=== PATIENT | male | born 1940 | race African-American/Black ===

== ENCOUNTER 2018-08-18 17:39 | Observation (INO) ==
--- NOTE | 2018-08-18 18:10 | ED ---
HPI General Chief complaint: Altered Mental Status Stated complaint: AMS Time Seen by Provider: 08/18/18 17:50 Source: RN notes reviewed Mode of arrival: EMS Limitations: other (dementia) History of Present Illness HPI narrative: Patient is a 78-year-old male with history of dementia, hypertension who presents to the emergency room from [facility] for neurological changes. As per fci, patient was acting like his normal self around 11 to 11:30 AM this morning when she went for lunch. When patient went for dinner around 5 PM tonight, staff reported that patient had left lower extremity weakness, patient son thought it was more of a right lower extremity weakness. There are concerns for possible neurological deficits given his shuffling gait. Patient was last seen normal around 11:30 AM today. Patient is pleasantly demented, he is alert to person and place, not time. Patient with no complaints at this time. Related Data Home Medications Medication Instructions Recorded Confirmed ferrous sulfate 325 mg PO TID 08/18/18 08/18/18 fluoxetine 20 mg PO DAILY 08/18/18 08/18/18 furosemide 20 mg PO DAILY 08/18/18 08/18/18 latanoprost 1 drp OPHTHALMIC (EYE) QPM 08/18/18 08/18/18 losartan 100 mg PO DAILY 08/18/18 08/18/18 spironolactone 25 mg PO BID 08/18/18 08/18/18 Allergies Allergy/AdvReac Type Severity Reaction Status Date / Time No Known Allergies Allergy Verified 08/18/18 18:02 Review of Systems ROS: all other systems reviewed are negative PMFSH History History Provided By: Patient Medical History Medical History Fluid retention (Acute) Hypertension (Acute) Social History Social History Substance History: No History of Abuse Smoking Status: Unknown if ever smoked How Often Do You Have a Drink Containing Alcohol: Never Recent Out of Country Travel within the Last 8 Weeks: No Exam Narrative Exam Narrative: GENERAL: NAD, pleasantly SKIN: Focused skin assessment warm/dry. HEAD: Atraumatic. Normocephalic. EYES: Pupils equal and round. No scleral icterus. No injection or drainage. ENT: No nasal bleeding or discharge. Mucous membranes pink and moist. NECK: Trachea midline. No JVD. CARDIOVASCULAR: Regular rate and rhythm. No murmur appreciated. RESPIRATORY: No accessory muscle use. Clear to auscultation. Breath sounds equal bilaterally. GASTROINTESTINAL: Abdomen soft, non-tender, nondistended. Hepatic and splenic margins not palpable. MUSCULOSKELETAL: No obvious deformities. No clubbing. No cyanosis. No edema. NEUROLOGICAL: Awake and alert. No obvious cranial nerve deficits. Motor grossly within normal limits. Normal speech. PSYCHIATRIC: Flat mood and affect, patient alert to person and place Course Consultations Consultation #1: Patient's care discussed with on-call [facility] physician Dr. Castillo regarding presentation for new onset weakness concerning for possible TIA, identified to have renal insufficiency chronicity is unknown and family members with lab work does not have baseline renal function for possible acute renal insufficiency/dehydration, mild hyperkalemia of 5.3 patient given fluid challenge cautiously due to history of CHF. Time: 21:27 Initial Documented Vital Signs Temperature 97.7 F 08/18/18 17:45 Pulse Rate 83 08/18/18 17:45 Respiratory Rate 12 08/18/18 17:45 Blood Pressure 124/58 L 08/18/18 17:45 Pulse Oximetry 97 08/18/18 17:45 Last Documented Vital Signs Temperature 97.7 F 08/18/18 17:45 Pulse Rate 68 08/18/18 20:00 Respiratory Rate 18 08/18/18 20:00 Blood Pressure 128/58 L 08/18/18 20:00 Pulse Oximetry 98 08/18/18 20:00 Sign Out Sign Out Data: Patient Sign Out occurred on 08/18/18 at 19:18. Patient's care was discussed, and care was transferred from Meera Hoffman to Eliane Concepcion MD. Sign Out Comment: Patient signed out at change of shift, patient pending her full workup including CT the head and lab work, ultimately, I do think that patient will be admitted to the hospital for observation Last updated by Meera Hoffman at 08/18/18 19:01 Post-Handoff Eval: Accepted in transfer of care from Dr. Hoffman Medical Decision Making [facility] Narrative Medical decision making narrative: During the course of the patients emergency department visit, the patients history, examination, and differential diagnosis were reviewed with the patient. The patient was placed on a location analyst with oximetry and frequent blood pressure monitoring. The patient had an IV access obtained and blood work sent for analysis. BS [id number] Patient's care discussed with on-call [facility] physician Dr. Castillo regarding presentation for new onset weakness concerning for possible TIA, identified to have renal insufficiency chronicity is unknown and family members with lab work does not have baseline renal function for possible acute renal insufficiency/ dehydration, mild hyperkalemia of 5.3 patient given fluid challenge cautiously due to history of CHF. Medical Screen Exam Complete: Yes Emergency Medical Condition: Yes Differential Diagnosis Differential Diagnosis: ICH, TIA, CVA, UTI, Electrolyte abnormality Medical Records Medical records reviewed: Yes I reviewed the patient's medical records. Lab Data Lab results reviewed: Yes I reviewed the patient's lab results. Result diagrams: 08/18/18 18:16 08/18/18 18:16 Lab Results 08/18/18 08/18/18 08/18/18 Range/Units 18:16 18:16 18:16 WBC 6.6 (4.0-11.0) th/mm3 RBC 3.02 L (4.50-5.90) mil/mm3 Hgb 11.4 L (13.0-17.0) gm/dL Hct 34.0 L (39.0-51.0) % MCV 112.4 H (80.0-100.0) fL MCH 37.7 H (27.0-34.0) pg MCHC 33.5 (32.0-36.0) % RDW 15.5 (11.6-17.2) % Plt Count 84 L (150-450) th/mm3 MPV 10.1 (7.0-11.0) fL Prelim Diff (Auto) Slide review pending Neut % (Auto) 64.7 (16.0-70.0) % Lymph % (Auto) 15.8 (9.0-44.0) % [place] % (Auto) 14.7 H (0.0-8.0) % Eos % (Auto) 4.6 H (0.0-4.0) % Baso % (Auto) 0.2 (0.0-2.0) % Neut # (Auto) 4.3 (1.8-7.7) th/mm3 Lymph # (Auto) 1.0 (1.0-4.8) th/mm3 [place] # (Auto) 1.0 H (0.0-0.9) th/mm3 Eos # (Auto) 0.3 (0.0-0.4) th/mm3 Baso # (Auto) 0.0 (0.0-0.2) th/mm3 WBC Differential . Diff Scan Auto diff confirmed Differential Comment . Platelet Estimate Low L (Normal) Platelet Morphology Normal (Normal) PT 13.2 H (9.8-11.6) sec INR 1.3 Ratio APTT 32.2 H (24.3-30.1) sec Sodium 139 (136-145) meq/L Potassium 5.3 H (3.5-5.1) meq/L Chloride 110 H (98-107) meq/L Carbon Dioxide 19.0 L (21.0-32.0) meq/L Anion Gap 10 (5-15) meq/L BUN 47 H (7-18) mg/dL Creatinine 2.74 H (0.60-1.30) mg/dL Estimated GFR 27 L (>89) mL/min POC Glucose (68-110) mg/dl Random Glucose 146 H (74-106) mg/dL Calcium 9.0 (8.5-10.1) mg/dL Total Creatine Kinase 126 (39-308) U/L CK-MB (CK-2) 1.4 (0.5-3.6) ng/mL Troponin I Less than 0.02 L (0.02-0.05) ng/mL Urine Color (Yellw/Straw) Urine Clarity (Clear) Urine pH (5.0-8.5) Ur Specific [place] (1.002-1.035) Urine Protein (Neg-Trace) mg/dL Urine Glucose (UA) (Negative) mg/dL Urine Ketones (Negative) mg/dL Urine Occult Blood (Negative) Urine Nitrate (Negative) Urine Bilirubin (Negative) Urine Urobilinogen (Less than 2) mg/dL Ur Leukocyte Esterase (Negative) Urine WBC (0-5) /hpf Hyaline Casts (0-3) /lpf Granular Casts (None) /lpf Urine Mucus (Occasional) /lpf Micro UA Comment Ur Microscopic Review Urine Culture Comments 08/18/18 08/18/18 Range/Units 18:20 20:18 WBC (4.0-11.0) th/mm3 RBC (4.50-5.90) mil/mm3 Hgb (13.0-17.0) gm/dL Hct (39.0-51.0) % MCV (80.0-100.0) fL MCH (27.0-34.0) pg MCHC (32.0-36.0) % RDW (11.6-17.2) % Plt Count (150-450) th/mm3 MPV (7.0-11.0) fL Prelim Diff (Auto) Neut % (Auto) (16.0-70.0) % Lymph % (Auto) (9.0-44.0) % [place] % (Auto) (0.0-8.0) % Eos % (Auto) (0.0-4.0) % Baso % (Auto) (0.0-2.0) % Neut # (Auto) (1.8-7.7) th/mm3 Lymph # (Auto) (1.0-4.8) th/mm3 [place] # (Auto) (0.0-0.9) th/mm3 Eos # (Auto) (0.0-0.4) th/mm3 Baso # (Auto) (0.0-0.2) th/mm3 WBC Differential Diff Scan Differential Comment Platelet Estimate (Normal) Platelet Morphology (Normal) PT (9.8-11.6) sec INR Ratio APTT (24.3-30.1) sec Sodium (136-145) meq/L Potassium (3.5-5.1) meq/L Chloride (98-107) meq/L Carbon Dioxide (21.0-32.0) meq/L Anion Gap (5-15) meq/L BUN (7-18) mg/dL Creatinine (0.60-1.30) mg/dL Estimated GFR (>89) mL/min POC Glucose 141 H (68-110) mg/dl Random Glucose (74-106) mg/dL Calcium (8.5-10.1) mg/dL Total Creatine Kinase (39-308) U/L CK-MB (CK-2) (0.5-3.6) ng/mL Troponin I (0.02-0.05) ng/mL Urine Color Yellow (Yellw/Straw) Urine Clarity Clear (Clear) Urine pH 5.0 (5.0-8.5) Ur Specific [place] 1.011 (1.002-1.035) Urine Protein Negative (Neg-Trace) mg/dL Urine Glucose (UA) Negative (Negative) mg/dL Urine Ketones Negative (Negative) mg/dL Urine Occult Blood Negative (Negative) Urine Nitrate Negative (Negative) Urine Bilirubin Negative (Negative) Urine Urobilinogen 2.0 H (Less than 2) mg/dL Ur Leukocyte Esterase Negative (Negative) Urine WBC 2 (0-5) /hpf Hyaline Casts 20 (0-3) /lpf Granular Casts 7 (None) /lpf Urine Mucus Few H (Occasional) /lpf Micro UA Comment Culture not ind Ur Microscopic Review Not Reportable Urine Culture Comments Culture not ind Imaging Data Radiologist's impression: Head CT 08/18/18 18:02 CONCLUSION: 1. Atrophy. . Chest X-Ray 08/18/18 20:23 CONCLUSION: Negative examination. Discharge Plan Discharge Disposition Patient Disposition: 30 Still Patient Discharge Condition Condition: Stable Discharge Details Diagnosis: TIA (transient ischemic attack), Acute renal insufficiency, Hyperkalemia Physicians Team ED Provider: Eliane Concepcion Primary Care Provider: Mike Bower V Rxs /Orders / Referrals /Forms Prescriptions: No Action latanoprost 0.005 % Drops 1 drp OPHTHALMIC (EYE) QPM RF: 0 spironolactone 25 mg Tablet 25 mg PO BID RF: 0 ferrous sulfate 325 mg (65 mg iron) Tablet 325 mg PO TID RF: 0 furosemide 20 mg Tablet 20 mg PO DAILY RF: 0 losartan 100 mg Tablet 100 mg PO DAILY RF: 0 fluoxetine 20 mg Capsule 20 mg PO DAILY RF: 0 Discharge Interventions Interventions: Vital Signs Last Done: 08/18/18 20:00 Status ED Status: With Doctor
[2018-08-18 18:52] LABS: Baso % (Auto) 0.2 % (0.0-2.0); Eos # (Auto) 0.3 th/mm3 (0.0-0.4); Eos % (Auto) 4.6 % (0.0-4.0); Hemoglobin 11.4 gm/dL (13.0-17.0); Lymph % (Auto) 15.8 % (9.0-44.0); Mean Corpuscular HGB Conc 33.5 % (32.0-36.0); Mean Corpuscular Hemoglobin 37.7 pg (27.0-34.0); Mean Corpuscular Volume 112.4 fL (80.0-100.0); Mean Platelet Volume 10.1 fL (7.0-11.0); Mono % (Auto) 14.7 % (0.0-8.0); Neut # (Auto) 4.3 th/mm3 (1.8-7.7); Neut % (Auto) 64.7 % (16.0-70.0); Platelet Count 84 th/mm3 (150-450); Red Blood Count 3.02 mil/mm3 (4.50-5.90); Red Cell Distribution Width 15.5 % (11.6-17.2); White Blood Count 6.6 th/mm3 (4.0-11.0)
[2018-08-18 18:55] LABS: Activated Partial Thrombo Time 32.2 sec (24.3-30.1); INR 1.3 Ratio; Prothrombin Time 13.2 sec (9.8-11.6)
[2018-08-18 19:13] LABS: Anion Gap 10 meq/L (5-15); Blood Urea Nitrogen 47 mg/dL (7-18); Chloride 110 meq/L (98-107); Creatine Kinase 126 U/L (39-308); Glomerular Filtration Rate 27 mL/min (>89); Glucose,Random 146 mg/dL (74-106); Sodium 139 meq/L (136-145)
[2018-08-18 19:17] LABS: Platelet Morphology Normal (Normal)
--- NOTE | 2018-08-18 19:30 | CT ---
EXAM DATE: 08/18/2018 6:08 PM EDT AGE/SEX: 78 years / Male INDICATIONS: Altered mental status. CLINICAL DATA: This is the patient's initial encounter. Patient reports that signs and symptoms have been present for 1 day and indicates a pain score of 0/10. MEDICAL/SURGICAL HISTORY: None. None. RADIATION DOSE: 41.90 CTDI (mGy) COMPARISON: No prior exams available for comparison. TECHNIQUE: CT of the head without contrast. Using automated exposure control and adjustment of the mA and/or kV according to patient size, radiation dose was kept as low as reasonably achievable to ob tain optimal diagnostic quality images. DICOM format image data is available electronically for revi ew and comparison. FINDINGS: There is mild atrophy. No signs of intracranial hemorrhage, acute infarct, or mass. No fractures. CONCLUSION: 1. Atrophy. . Electronically signed by: Fidencio Hidalgo MD 08/18/2018 7:29 PM EDT
[2018-08-18 19:31] LABS: Potassium 5.3 meq/L (3.5-5.1)
[2018-08-18 19:43] LABS: Creatine Kinase MB 1.4 ng/mL (0.5-3.6)
[2018-08-18 20:53] LABS: Bilirubin,Urine Negative (Negative); Clarity,Urine Clear (Clear); Color,Urine Yellow (Yellw/Straw); Glucose,Urine (UA) Negative (Negative); Hyaline Casts,Urine 20 /lpf (0-3); Leukocyte Esterase,Urine Negative (Negative); Mucus,Urine Few /lpf (Occasional); Nitrite,Urine Negative (Negative); Specific Gravity,Urine 1.011 (1.002-1.035)
[2018-08-18] MEDS ORDERED: Sodium Chlor 0.9% Inj 500 ML IV.SIG SCH (21:00)
--- NOTE | 2018-08-18 21:19 | XR ---
EXAM DATE: 08/18/2018 8:23 PM EDT AGE/SEX: 78 years / Male INDICATIONS: Hypertension and shortness of breath. CLINICAL DATA: This is the patient's initial encounter. Patient reports that signs and symptoms have been present for 2 days and indicates a pain score of 0/10. MEDICAL/SURGICAL HISTORY: None. None. COMPARISON: No prior exams available for comparison. FINDINGS: A single AP view of the chest demonstrates the lungs to be symmetrically aerated without evidence of mass, infiltrate or effusion. The cardiomediastinal contours are unremarkable. Osseous structures a re intact. CONCLUSION: Negative examination. Electronically signed by: Fidencio Hidalgo MD 08/18/2018 9:17 PM EDT
[2018-08-18] MEDS ORDERED: Dextrose 50% in Water 50 ML Vial IV.PUSH PRN (22:34)
[2018-08-18] MEDS ORDERED: Sodium Polystyrene Sulfonate/Sorbitol Liq 15 GM/60 ML UDC PO ONE (22:42)
--- NOTE | 2018-08-18 22:43 | P.HP ---
History of Present Illness Service: [facility] Primary Care Physician: Mike Bower MD History of Present Illness: 78-year-old male with past medical history significant for CHF, glaucoma and hypertension presents to the emergency department for evaluation of left lower extremity weakness. At approximately 4:30 PM this afternoon the patient's son noticed that his father was dragging his left leg behind him while walking with his walker. The patient did not have any confusion or slurred speech. He reports at this time he feels fine but has not tried to ambulate since his arrival in the emergency department. He denies any history of kidney disease. No chest pain or shortness of breath. No abdominal pain. No nausea/vomiting/ diarrhea. No fever/chills. Review of Systems All other systems reviewed negative except as stated in HPI PMFSH - History History Provided By: Patient - Medical History Medical History: Medical History (Last Updated 08/18/18 @ 22:38 by Meera Castillo MD) Congestive heart failure Glaucoma Hypertension - Surgical History Surgical History: Surgical History (Last Updated 08/18/18 @ 22:38 by Meera Castillo MD) History of appendectomy Status post repair of hydrocele - Family History Family History: Family History (Last Updated 08/18/18 @ 22:38 by Meera Castillo MD) Other Coronary artery disease Diabetes mellitus - Tobacco History Smoking Status: Unknown if ever smoked - Alcohol History How Often Do You Have a Drink Containing Alcohol: Never - Substance Use History Substance History: No History of Abuse - Travel History Recent Travel Out of the Country Within the Last 8 Weeks: No - Immunization History Tetanus Immunization: Unsure Medications and Allergies Active Medications: Active Medications Aspirin (Aspirin) 325 mg PO DAILY ERICH Dextrose (D50w Vial) 50 ml IV.PUSH UNSCH PRN PRN Reason: PER HYPOGLYCEMIA PROTOCOL Sodium Chloride (Ns Inj) 500 mls @ 0 mls/hr IV.SIG BOLUS ERICH Sodium Chloride (Ns Flush) 2 ml IV.FLUSH PRN PRN PRN Reason: FLUSH AFTER USING IV ACCESS Allergies Allergy/AdvReac Type Severity Reaction Status Date / Time No Known Allergies Allergy Verified 08/18/18 18:02 Home Medications Medication Instructions Recorded Confirmed Type ferrous sulfate 325 mg PO TID 08/18/18 08/18/18 History fluoxetine 20 mg PO DAILY 08/18/18 08/18/18 History furosemide 20 mg PO DAILY 08/18/18 08/18/18 History latanoprost 1 drp OPHTHALMIC (EYE) QPM 08/18/18 08/18/18 History losartan 100 mg PO DAILY 08/18/18 08/18/18 History spironolactone 25 mg PO BID 08/18/18 08/18/18 History Exam Vital signs: Vital Signs 08/18/18 17:45 08/18/18 18:07 08/18/18 19:01 Temperature 97.7 F Pulse Rate 83 69 Respiratory Rate 12 18 18 Blood Pressure 124/58 L 119/58 L Pulse Oximetry 97 100 99 08/18/18 20:00 08/18/18 21:00 08/18/18 22:00 Temperature Pulse Rate 68 70 73 Respiratory Rate 18 16 18 Blood Pressure 128/58 L 140/63 Pulse Oximetry 98 98 98 Intake & Output 08/18/18 08/18/18 08/19/18 06:59 18:59 06:59 Weight 82.554 kg Narrative: Gen.: No acute distress Head: Normocephalic. Atraumatic. EENT: Pupils equal round and reactive to light. Nose without drainage. Airway intact. Throat without injection. Cardiovascular: Regular rate and rhythm. No murmurs, rubs or gallops. Respiratory: Lungs clear to auscultation bilaterally. No wheezes or rhonchi. Abdomen: Soft, nontender, nondistended. No peritoneal signs. Musculoskeletal: No gross deformities. No edema. Skin: No obvious rashes or erythema. Neuro: Cranial nerves II through XII intact. Upper extremity strength including hand ice maker strength 5/5. Lower extremity strength 3/5 bilaterally. No facial droop or slurred speech. Results - Labs CBC & Chem 7: 08/18/18 18:16 08/18/18 18:16 Labs: Laboratory Results - last 24 hr 08/18/18 08/18/18 08/18/18 18:16 18:16 18:16 WBC 6.6 RBC 3.02 L Hgb 11.4 L Hct 34.0 L MCV 112.4 H MCH 37.7 H MCHC 33.5 RDW 15.5 Plt Count 84 L MPV 10.1 Prelim Diff (Auto) Slide review pending Neut % (Auto) 64.7 Lymph % (Auto) 15.8 [place] % (Auto) 14.7 H Eos % (Auto) 4.6 H Baso % (Auto) 0.2 Neut # (Auto) 4.3 Lymph # (Auto) 1.0 [place] # (Auto) 1.0 H Eos # (Auto) 0.3 Baso # (Auto) 0.0 WBC Differential . Diff Scan Auto diff confirmed Differential Comment . Platelet Estimate Low L Platelet Morphology Normal PT 13.2 H INR 1.3 APTT 32.2 H Sodium 139 Potassium 5.3 H Chloride 110 H Carbon Dioxide 19.0 L Anion Gap 10 BUN 47 H Creatinine 2.74 H Estimated GFR 27 L POC Glucose Random Glucose 146 H Calcium 9.0 Total Creatine Kinase 126 CK-MB (CK-2) 1.4 Troponin I Less than 0.02 L Urine Color Urine Clarity Urine pH Ur Specific [place] Urine Protein Urine Glucose (UA) Urine Ketones Urine Occult Blood Urine Nitrate Urine Bilirubin Urine Urobilinogen Ur Leukocyte Esterase Urine WBC Hyaline Casts Granular Casts Urine Mucus Micro UA Comment Ur Microscopic Review Urine Culture Comments 08/18/18 08/18/18 18:20 20:18 WBC RBC Hgb Hct MCV MCH MCHC RDW Plt Count MPV Prelim Diff (Auto) Neut % (Auto) Lymph % (Auto) [place] % (Auto) Eos % (Auto) Baso % (Auto) Neut # (Auto) Lymph # (Auto) [place] # (Auto) Eos # (Auto) Baso # (Auto) WBC Differential Diff Scan Differential Comment Platelet Estimate Platelet Morphology PT INR APTT Sodium Potassium Chloride Carbon Dioxide Anion Gap BUN Creatinine Estimated GFR POC Glucose 141 H Random Glucose Calcium Total Creatine Kinase CK-MB (CK-2) Troponin I Urine Color Yellow Urine Clarity Clear Urine pH 5.0 Ur Specific [place] 1.011 Urine Protein Negative Urine Glucose (UA) Negative Urine Ketones Negative Urine Occult Blood Negative Urine Nitrate Negative Urine Bilirubin Negative Urine Urobilinogen 2.0 H Ur Leukocyte Esterase Negative Urine WBC 2 Hyaline Casts 20 Granular Casts 7 Urine Mucus Few H Micro UA Comment Culture not ind Ur Microscopic Review Not Reportable Urine Culture Comments Culture not ind - Imaging Impressions Head CT 08/18/18 18:02 CONCLUSION: 1. Atrophy. . Chest X-Ray 08/18/18 20:23 CONCLUSION: Negative examination. Caprini VTE Risk Assessment Caprini VTE Risk Assessment: Moderate/High Risk (score >= 2) Caprini Risk Assessment Model: Point Value = 1 Point Value = 2 Point Value = 3 Point Value = 5 Age 41-60 Minor surgery BMI > 25 kg/m2 Swollen legs Varicose veins or History of unexplained or recurrent spontaneous Oral contraceptives or hormone replacement Sepsis (< 1 month) Serious lung disease, including pneumonia (< 1 month) Abnormal pulmonary function Acute myocardial infarction Congestive heart failure (< 1 month) History of inflammatory bowel disease Medical patient at bed rest Age 61-74 Arthroscopic surgery Major open surgery (> 45 min) Laparoscopic surgery (> 45 min) Malignancy Confined to bed (> 72 hours) Immobilizing plaster cast Central venous access Age >= 75 History of VTE Family history of VTE Factor V Leiden Prothrombin [id number] Lupus anticoagulant Anticardiolipin antibodies Elevated serum homocysteine Heparin-induced thrombocytopenia Other congenital or acquired thrombophilia Stroke (< 1 month) Elective arthroplasty Hip, pelvis, or leg fracture Acute spinal cord injury (< 1 month) Prophylaxis Regimen: Total Risk Factor Score Risk Level Prophylaxis Regimen 0-1 Low Early ambulation 2 Moderate Order ONE of the following: *Sequential Compression Device (SCD) *Heparin 5000 units SQ BID 3-4 Higher Order ONE of the following medications: *Heparin 5000 units SQ TID *Enoxaparin/Lovenox 40 mg SQ daily (WT < 150 kg, CrCl > 30 mL/min) *Enoxaparin/Lovenox 30 mg SQ daily (WT < 150 kg, CrCl > 10-29 mL/min) *Enoxaparin/Lovenox 30 mg SQ BID (WT < 150 kg, CrCl > 30 mL/min) AND/OR *Sequential Compression Device (SCD) 5 or more Highest Order ONE of the following medications: *Heparin 5000 units SQ TID (Preferred with Epidurals) *Enoxaparin/Lovenox 40 mg SQ daily (WT < 150 kg, CrCl > 30 mL/min) *Enoxaparin/Lovenox 30 mg SQ daily (WT < 150 kg, CrCl > 10-29 mL/min) *Enoxaparin/Lovenox 30 mg SQ BID (WT < 150 kg, CrCl > 30 mL/min) AND *Sequential Compression Device (SCD) Assessment and Plan - Plan Assessment/plan: 1. Left lower extremity weakness/TIA Head CT negative for acute process Brain MRI/MRA, carotid ultrasound pending Neurology consulted, appreciate recommendations PT 2. CHF Continue home spironolactone and Lasix 3. Glaucoma Continue home latanoprost 4. Hypertension Continue home losartan 5. Acute kidney injury BUN/creatinine 47/2.74 IV fluid hydration Monitor renal function 6. Hyperkalemia No EKG changes Potassium 5.3 Kayexalate Monitor BMP FEN N.p.o. Electrolytes: As above NS at 70 cc/hour Heparin
[2018-08-19] MEDS: Heparin - SQ 10,000 UNITS/ML Vial SQ SCH ×3 (00:31→14:40)
[2018-08-19] MEDS: Sod Chloride 0.9% Inj 1,000 ML IV.CONT SCH ×3 (00:31→21:00)
[2018-08-19] MEDS: Insulin NovoLOG Aspart Correctional Sugar Inj SQ SCH ×4 (03:31→18:59)
--- NOTE | 2018-08-19 08:27 | US ---
EXAM DATE: 08/19/2018 12:00 AM EDT AGE/SEX: 78 years / Male INDICATIONS: Left lower extremity weakness. CLINICAL DATA: This is the patient's initial encounter. Patient reports that signs and symptoms have been present for 1 day and indicates a pain score of 0/10. MEDICAL/SURGICAL HISTORY: Congestive heart failure. Hypertension. Glaucoma. Appendectomy. Hyd rocele repair. COMPARISON: No prior exams available for comparison. VELOCITY PARAMETERS: ICA/CCA Ratio: Right 0.7 , Left 1.1 ICA: Right 53 cm/sec, Left 78 cm/sec CCA: Right 81 cm/sec, Left 69 cm/sec ECA: Right 86 cm/sec, Left 143 cm/sec Vertebral: Right 36 cm/sec antegrade, Left 39 cm/sec antegrade FINDINGS: Right Carotid: No significant plaque is visualized.The waveforms are within normal limits. Left Carotid: Bulky arteriosclerotic plaque is visualized in the bulb extending to the origin of the ICA. The waveforms are within normal limits. Other: None. CONCLUSION: 1. Right Internal Carotid Artery: No significant stenosis or atherosclerotic plaque is visualized. 2. Left Internal Carotid Artery: Findings indicate <50% stenosis. Electronically signed by: Gordon Baeza MD 08/19/2018 8:25 AM EDT
[2018-08-19] MEDS ORDERED: Spironolactone 25 MG Tablet PO SCH (09:00)
[2018-08-19] MEDS ORDERED: Furosemide 20 MG Tablet PO SCH (09:00)
--- NOTE | 2018-08-19 09:01 | MR ---
EXAM DATE: 08/19/2018 7:52 AM EDT AGE/SEX: 78 years / Male INDICATIONS: CVA. Left leg weakness. CLINICAL DATA: This is the patient's subsequent encounter. Patient reports that signs and symptoms h ave been present for 2 days and indicates a pain score of 0/10. MEDICAL/SURGICAL HISTORY: Congestive heart failure. Hypertension. Glaucoma. Appendectomy. Hyd rocele repair. Eye surgery for glaucoma. [place] [facility] [place]18[place]. . TECHNIQUE: 3D [id number] MRA was performed. Source images, multiplanar STS MIP, and 3D volum e MIP reconstructions were reviewed. FINDINGS: Study is limited by patient motion. Anterior Circulation: Intracranial Carotid Arteries: Patent. FELISA: There is no evidence for aneurysm, vessel truncation or stenosis, and no evidence for vascular m alformation. MCA: There is no evidence for aneurysm, vessel truncation or stenosis, and no evidence for vascular m alformation. Posterior Circulation: Distal Vertebral Arteries: Distal Vertebral arteries are symetrical and patent. Basilar Artery: There is no evidence for aneurysm, vessel truncation or stenosis, and no evidence for vascular malformation. INVESTMENT SPECIALIST and Cerebellar Branches: The posterior cerebral and cerebellar branches are significantly obscure d by motion artifact. Visualized portions appear intact. However, evaluation for focal stenosis or an eurysm is limited. CONCLUSION: 1. Limited examination due to patient motion particularly in the evaluation of the INVESTMENT SPECIALIST and cerebella r branches. 2. Otherwise, unremarkable MRA examination of the head. Specifically, no evidence for large vessel o cclusion. Electronically signed by: Gordon Baeza MD 08/19/2018 9:00 AM EDT
--- NOTE | 2018-08-19 09:07 | MR ---
EXAM DATE: 08/19/2018 7:52 AM EDT AGE/SEX: 78 years / Male INDICATIONS: CVA. Left leg weakness. CLINICAL DATA: This is the patient's subsequent encounter. Patient reports that signs and symptoms h ave been present for 2 days and indicates a pain score of 0/10. MEDICAL/SURGICAL HISTORY: Congestive heart failure. Hypertension. Glaucoma. Appendectomy. Hyd rocele repair. Eye surgery for glaucoma. COMPARISON: [facility] [place], MRA HEAD W/O CONTRAST, 08/19/2018. . TECHNIQUE: Multiplanar, multisequence examination of the brain was performed without contrast. FINDINGS: Cerebrum: Mild diffuse cerebral atrophy. The ventricles are normal for age. No evidence of midline shift, mass lesion, hemorrhage or acute infarction. No extraaxial fluid collections are seen. The p ituitary gland and suprasellar cistern are normal in configuration. White Matter: Mild periventricular and focal deep white matter T2 prolongation. Posterior Fossa: The cerebellum and brainstem are intact. The 4th ventricle is midline. The cerebel lopontine angle is unremarkable. The cerebellar tonsils are normal in position. Diffusion Imaging: No focal areas of restricted diffusion are seen. No evidence of acute infarction . Extracranial: The visualized portions of the orbits and paranasal sinuses are unremarkable. CONCLUSION: 1. Senescent changes and mild periventricular ischemic white matter demyelination. 2. No acute abnormality. Specifically, no evidence for acute infarction or hemorrhage. Electronically signed by: Gordon Baeza MD 08/19/2018 9:05 AM EDT
[2018-08-19 09:18] LABS: Chol/HDL Ratio 4.34 Ratio; HDL Cholesterol 42.8 mg/dL (40.0-60.0)
--- NOTE | 2018-08-19 10:15 | MB ---
cc: Sha Delgado MD DATE: 08/19/2018 HISTORY OF PRESENT ILLNESS: This 78-year-old man was admitted yesterday with some left leg weakness, where he was dragging his leg, although the son thought maybe it was the right leg, so it is a little bit unclear. Lives in [place] in assisted living. He is noted to have a history of dementia and hypertension. Evidently, may have some shuffling gait. History of CHF, glaucoma. The patient remembers just feeling empty inside, nothing definite. PAST MEDICAL HISTORY: He told me he had some hypertension, diabetes, hypercholesterolemia, and evidently had some mild renal insufficiency, although he is supposed to have a history of dementia. REVIEW OF SYSTEMS: He denied any UT, CABG, heart problems, AFib, hepatic, pulmonary disease, thyroid disease, lupus, ulcer, cancer, seizure, stroke. SOCIAL HISTORY: Nonsmoker or drinker, lives at [facility]. FAMILY HISTORY: Negative cancer or stroke, according to the patient. MEDICATIONS AT [place]: He is on spironolactone, losartan, Lasix, fluoxetine, latanoprost, iron. He was started on 325 aspirin here, also on some Prozac here. PHYSICAL EXAMINATION: VITAL SIGNS: On exam, sinus rhythm overnight. Afebrile, 66, 60 141/67. Initial blood pressure 124/58. NECK: There are no carotid bruits. HEART: Regular rhythm. I did not detect a murmur. NEUROLOGIC: He is awake and alert. He knows in the hospital. He knows the month and the year. He knows he lives at [facility]. He said he does not live in the prison there. Follows commands well, a little bit of difficulty repeating for me, but he remembered 3/3 words at 3 minutes. Pupils are equal. Visual guadalupe are full. Extraocular movements intact without nystagmus. Face is symmetric with normal sensation. Tongue was midline. No drift. Normal strength in upper and lower extremities bilaterally. Tone seems a little bit of [place] in bilateral lower extremities. Toes are downgoing bilaterally. DTRs are 1+ and symmetric at the knees. Pinprick was intact throughout all 4 extremities and face. He is not ataxic on [id number]. Speech is fluent. He is not aphasic. A little bradykinetic. LABORATORY DATA: His CBC was normal except for platelet count of 84,000. His UA was negative. The patient's metabolic profile: Potassium 5.3, BUN 47, creatinine 2.7. CPK was normal. Troponin was negative. Glucose 141. Coags are normal. IMAGING: CT scan of his brain showed some mild atrophy, otherwise normal. Review of the films. Does have some prominent ventricles, some diffuse atrophy. No major old infarct is noted. IMPRESSION: I thought he actually looked fairly well neurologically. Whether he could have some parkinsonism with his gait or shuffling, or some early normal pressure hydrocephalus could be considered. PLAN: We will get him up and ambulate him. Check an MRI of the brain. Some additional blood work. I can probably work on his gait and memory, as he does not appear to be too bad neurologically. I do not see any definite weakness in the leg. Check an echocardiogram on him also. I will check an MRI of the brain, MRA of the [place]. Will also get a carotid ultrasound as his creatinine is too high for any contrast with the MR, so we will do an MRA of the neck. Also check an EEG and also check his standing blood pressure. MD RAJNI Pimentel/kierra , 08:12 AM , 08:22 AM
[2018-08-19] MEDS: Ferrous Sulfate 325 MG Tablet PO SCH ×3 (10:47→19:10)
[2018-08-19] MEDS: Aspirin 325 MG Tablet PO SCH (10:47)
[2018-08-19] MEDS: FLUoxetine 20 MG Capsule PO SCH (10:47)
--- NOTE | 2018-08-19 12:09 | P.PN ---
Subjective Interval history: Follow-up for acute onset of left lower extremity weakness, concern for TIA/ CVA. The patient is currently denying any medical complaints. He states he did not even realize yesterday that he was dragging his left leg. He denies any current weakness or numbness of bilateral upper or lower extremities. He denies any headache, lightheadedness, dizziness, chest pains, shortness of breath, or abdominal complaints. Denies any changes in his speech or vision. He has no other medical complaints at this time. Physical Exam Vital signs: Vital Signs 08/18/18 17:45 08/18/18 18:07 08/18/18 19:01 Temperature 97.7 F Pulse Rate 83 69 Respiratory Rate 12 18 18 Blood Pressure 124/58 L 119/58 L Pulse Oximetry 97 100 99 08/18/18 20:00 08/18/18 21:00 08/18/18 22:00 Temperature Pulse Rate 68 70 73 Respiratory Rate 18 16 18 Blood Pressure 128/58 L 140/63 Pulse Oximetry 98 98 98 08/18/18 23:50 08/19/18 04:00 08/19/18 07:49 Temperature 97.5 F L 97.3 F L 97.7 F Pulse Rate 73 73 67 Respiratory Rate 18 18 16 Blood Pressure 132/62 122/60 141/67 H Pulse Oximetry 96 98 97 08/19/18 11:46 Temperature 97.4 F L Pulse Rate 64 Respiratory Rate 16 Blood Pressure 153/69 H Pulse Oximetry 95 Intake & Output 08/18/18 08/19/18 08/19/18 18:59 06:59 18:59 Intake Total 240 / 240 Output Total 230 / 230 Balance Weight 82.554 kg 82.554 kg Intake: Oral 240 / 240 Output: Urine 230 / 230 Other: Date of Last Bowel Movement 08/19/18 Weight On Admission 82.554 kg Narrative: GENERAL: Well-nourished, well-developed pleasant elderly male patient in [facility]. SKIN: Warm and dry. No rash. HEENT: Normocephalic. Atraumatic. Pupils equal and round. Mucous membranes pink and moist. NECK: Supple. Trachea midline. CARDIOVASCULAR: Regular rate and rhythm. No murmur appreciated. RESPIRATORY: No accessory muscle use. Clear to auscultation. Breath sounds equal bilaterally. GASTROINTESTINAL: Abdomen soft, non-tender, nondistended. Normoactive bowel sounds x4. MUSCULOSKELETAL: No obvious deformities. Extremities without clubbing, cyanosis , or edema. NEUROLOGICAL: Awake and alert. No obvious cranial nerve deficits. 5/5 strength of bilateral upper extremities, 4/5 strength of bilateral lower extremities. Normal speech. No facial droop/lid lag/tongue deviation. Results - Labs CBC & Chem 7: 08/18/18 18:16 08/18/18 18:16 Laboratory Results - last 24 hr 08/18/18 08/18/18 08/18/18 18:16 18:16 18:16 WBC 6.6 RBC 3.02 L Hgb 11.4 L Hct 34.0 L MCV 112.4 H MCH 37.7 H MCHC 33.5 RDW 15.5 Plt Count 84 L MPV 10.1 Prelim Diff (Auto) Slide review pending Neut % (Auto) 64.7 Lymph % (Auto) 15.8 [place] % (Auto) 14.7 H Eos % (Auto) 4.6 H Baso % (Auto) 0.2 Neut # (Auto) 4.3 Lymph # (Auto) 1.0 [place] # (Auto) 1.0 H Eos # (Auto) 0.3 Baso # (Auto) 0.0 WBC Differential . Diff Scan Auto diff confirmed Differential Comment . Platelet Estimate Low L Platelet Morphology Normal PT 13.2 H INR 1.3 APTT 32.2 H Sodium 139 Potassium 5.3 H Chloride 110 H Carbon Dioxide 19.0 L Anion Gap 10 BUN 47 H Creatinine 2.74 H Estimated GFR 27 L POC Glucose Random Glucose 146 H Calcium 9.0 Total Creatine Kinase 126 CK-MB (CK-2) 1.4 Troponin I Less than 0.02 L Triglycerides Cholesterol LDL Cholesterol, Calc HDL Cholesterol Cholesterol/HDL Ratio Urine Color Urine Clarity Urine pH Ur Specific [place] Urine Protein Urine Glucose (UA) Urine Ketones Urine Occult Blood Urine Nitrate Urine Bilirubin Urine Urobilinogen Ur Leukocyte Esterase Urine WBC Hyaline Casts Granular Casts Urine Mucus Micro UA Comment Ur Microscopic Review Urine Culture Comments 08/18/18 08/18/18 08/19/18 18:20 20:18 03:30 WBC RBC Hgb Hct MCV MCH MCHC RDW Plt Count MPV Prelim Diff (Auto) Neut % (Auto) Lymph % (Auto) [place] % (Auto) Eos % (Auto) Baso % (Auto) Neut # (Auto) Lymph # (Auto) [place] # (Auto) Eos # (Auto) Baso # (Auto) WBC Differential Diff Scan Differential Comment Platelet Estimate Platelet Morphology PT INR APTT Sodium Potassium Chloride Carbon Dioxide Anion Gap BUN Creatinine Estimated GFR POC Glucose 141 H 97 Random Glucose Calcium Total Creatine Kinase CK-MB (CK-2) Troponin I Triglycerides Cholesterol LDL Cholesterol, Calc HDL Cholesterol Cholesterol/HDL Ratio Urine Color Yellow Urine Clarity Clear Urine pH 5.0 Ur Specific [place] 1.011 Urine Protein Negative Urine Glucose (UA) Negative Urine Ketones Negative Urine Occult Blood Negative Urine Nitrate Negative Urine Bilirubin Negative Urine Urobilinogen 2.0 H Ur Leukocyte Esterase Negative Urine WBC 2 Hyaline Casts 20 Granular Casts 7 Urine Mucus Few H Micro UA Comment Culture not ind Ur Microscopic Review Not Reportable Urine Culture Comments Culture not ind 08/19/18 08/19/18 08:18 08:21 WBC RBC Hgb Hct MCV MCH MCHC RDW Plt Count MPV Prelim Diff (Auto) Neut % (Auto) Lymph % (Auto) [place] % (Auto) Eos % (Auto) Baso % (Auto) Neut # (Auto) Lymph # (Auto) [place] # (Auto) Eos # (Auto) Baso # (Auto) WBC Differential Diff Scan Differential Comment Platelet Estimate Platelet Morphology PT INR APTT Sodium Potassium Chloride Carbon Dioxide Anion Gap BUN Creatinine Estimated GFR POC Glucose 97 Random Glucose Calcium Total Creatine Kinase CK-MB (CK-2) Troponin I Triglycerides 116 Cholesterol 186 LDL Cholesterol, Calc 120 H HDL Cholesterol 42.8 Cholesterol/HDL Ratio 4.34 Urine Color Urine Clarity Urine pH Ur Specific [place] Urine Protein Urine Glucose (UA) Urine Ketones Urine Occult Blood Urine Nitrate Urine Bilirubin Urine Urobilinogen Ur Leukocyte Esterase Urine WBC Hyaline Casts Granular Casts Urine Mucus Micro UA Comment Ur Microscopic Review Urine Culture Comments - Imaging Impressions Head CT 08/18/18 18:02 CONCLUSION: 1. Atrophy. Chest X-Ray 08/18/18 20:23 CONCLUSION: Negative examination. Carotid Doppler Study 08/19/18 00:00 CONCLUSION: 1. Right Internal Carotid Artery: No significant stenosis or atherosclerotic plaque is visualized. 2. Left Internal Carotid Artery: Findings indicate <50% stenosis. Head MRI 08/19/18 00:00 CONCLUSION: 1. Senescent changes and mild periventricular ischemic white matter demyelination. 2. No acute abnormality. Specifically, no evidence for acute infarction or hemorrhage. Head MRA 08/19/18 00:00 CONCLUSION: 1. Limited examination due to patient motion particularly in the evaluation of the LO[employer] PROCESSOR and cerebellar branches. 2. Otherwise, unremarkable MRA examination of the head. Specifically, no evidence for large vessel occlusion. Assessment and Plan - Plan 78-year-old male with past medical history significant for CHF, glaucoma and hypertension presents to the emergency department for evaluation of left lower extremity weakness. At approximately 4:30 PM this afternoon the patient's son noticed that his father was dragging his left leg behind him while walking with his walker. Acute Neurological Deficit with Left lower extremity weakness: Concern for TIA vs CVA. -Head CT reviewed and negative for acute process -Brain MRI/MRA reviewed, shows senescent changes and mild periventricular ischemic white matter demyelination -Carotid ultrasound with left ICA < 50% stenosis, and right ICA without any significant stenosis -Neuro checks -Monitor on telemetry -Neurology consulted, appreciate recommendations -PT eval, recommending rehab vs HHC at [facility] Acute kidney injury: suspect secondary to dehydration -BUN/creatinine 47/2.74 -IV fluid hydration -Monitor renal function CHF: chronic, does not appear to be volume overloaded, dry on exam -Hold patient's home spironolactone and Lasix secondary to KAREN Glaucoma: chronic -Continue home latanoprost Hypertension: chronic, fairly well controlled -Continue home losartan -Monitor BP, adjust antihypertensives as needed Hyperkalemia -No EKG changes -Potassium 5.3 -Kayexalate -Monitor BMP DVT Prophylaxis: Heparin
[2018-08-19 14:29] LABS: Folate 14.6 ng/mL (3.1-17.5); Free T4 (Free Thyroxine) 0.89 ng/dL (0.76-1.46); Thyroid Stimulating Hormone 0.823 uIU/mL (0.358-3.740); Vitamin B12 1454 pg/mL (193-986)
--- NOTE | 2018-08-19 15:41 | ECHRPT ---
Indication: cva/tia CONCLUSIONS Technically very difficult study, making assessment of left ventricular function and wall motion sub optimal. Grossly, left ventricular function appears to be normal with estimated ejection fraction of 65%. Re gional wall motion abnormalities cannot be completely excluded on the basis of this study. The aortic valve is not well visualized. The tricuspid valve is not well visualized. No definite valvular abnormalities are identified. BP: / HR: Rhythm: Sinus MEASUREMENTS (Male / Female) Normal Values Technical Quality:Very technically difficult study 2D ECHO LVOT Diameter 1.9 cm LV Ejection Fraction MOD 4C 68.1 % LV Ejection Fraction 4C AL 69.2 % M-MODE Aortic Root Diameter MM 2.6 cm LA Systolic Diameter MM 4.0 cm LA Ao Ratio MM 1.5 AV Cusp Separation MM 1.3 cm DOPPLER AV Peak Velocity 144.0 cm/s AV Peak Gradient 8.3 mmHg LVOT Peak Velocity 122.0 cm/s LVOT Peak Gradient 6.0 mmHg AV Area Cont Eq pk 2.4 cm MV Area PHT 2.6 cm Mitral E Point Velocity 78.5 cm/s Mitral A Point Velocity 110.0 cm/s Mitral E to A Ratio 0.7 LV E' Lateral Velocity 11.9 cm/s Mitral E to LV E' Lateral Ratio 6.6 LV E' Septal Velocity 9.2 cm/s Mitral E to LV E' Septal Ratio 8.6 FINDINGS LEFT VENTRICLE Technically very difficult study, making assessment of left ventricular function and wall motion sub optimal. Grossly, left ventricular function appears to be normal with estimated ejection fraction of 65%. Re gional wall motion abnormalities cannot be completely excluded on the basis of this study. RIGHT VENTRICLE Normal right ventricular size and systolic function. LEFT ATRIUM The left atrial size is normal. RIGHT ATRIUM The right atrial size is normal. ATRIAL SEPTUM Normal atrial septal thickness without atrial level shunting by limited color doppler interrogation. AORTA The aortic root and proximal ascending aorta are normal in size on limited imaging. MITRAL VALVE Structurally normal mitral valve. No mitral valve stenosis or regurgitation. AORTIC VALVE The aortic valve is not well visualized. TRICUSPID VALVE The tricuspid valve is not well visualized. PULMONARY VALVE The pulmonary valve is not well visualized. VESSELS The inferior vena cava was not well visualized. PERICARDIUM No pericardial effusion. Prabhakar Gilmore MD (Electronically Signed) Final Date:19 August 2018 15:40
[2018-08-19 15:54] LABS: Hemoglobin A1c 4.8 % (4.3-6.0)
[2018-08-19] MEDS ORDERED: Latanoprost 0.005% Opth Drops 2.5 ML Bottle EACH EYE SCH (18:00)
[2018-08-19 18:29] LABS: Calcium 8.7 mg/dL (8.5-10.1); Carbon Dioxide 17.8 meq/L (21.0-32.0); Potassium 4.2 meq/L (3.5-5.1)
--- NOTE | 2018-08-19 20:27 | ECG ---
Date Performed: 08/18/2018 Time Performed: 18:34:51 PTAGE: 78 years EKG: Sinus rhythm NONSPECIFIC T-WAVE ABNORMALITY BORDERLINE ECG NO PREVIOUS TRACING DOCTOR: Elia Interiano Interpretating Date/Time 08/19/2018 20:25:41
--- NOTE | 2018-08-19 22:48 | MG ---
cc: Levi Macedo MD FINDINGS: A 3-4 Hz posterior rhythm, 10-30 microvolts with myogenic high frequency artifact in the frontal channels, increment 4-5 Hz. Limited driving with photic stimulation. Single lead EKG showing sinus rhythm. INTERPRETATION: Mild to moderate encephalopathy. Clinical correlation. MD KATHY Jain/tylor/ , 08:47 PM , 08:51 PM
[2018-08-20] MEDS: Insulin NovoLOG Aspart Correctional Sugar Inj SQ SCH ×4 (00:11→13:50)
[2018-08-20] MEDS: Heparin - SQ 10,000 UNITS/ML Vial SQ SCH ×3 (00:12→14:35)
[2018-08-20] MEDS: Sod Chloride 0.9% Inj 1,000 ML IV.CONT SCH (05:48)
[2018-08-20 06:06] LABS: Baso % (Auto) 0.4 % (0.0-2.0); Eos # (Auto) 0.6 th/mm3 (0.0-0.4); Eos % (Auto) 6.2 % (0.0-4.0); Hematocrit 35.3 % (39.0-51.0); Hemoglobin 12.1 gm/dL (13.0-17.0); Lymph # (Auto) 2.5 th/mm3 (1.0-4.8); Lymph % (Auto) 26.4 % (9.0-44.0); Mean Corpuscular HGB Conc 34.2 % (32.0-36.0); Mean Corpuscular Hemoglobin 38.1 pg (27.0-34.0); Mean Corpuscular Volume 111.6 fL (80.0-100.0); Mean Platelet Volume 9.8 fL (7.0-11.0); Mono # (Auto) 1.2 th/mm3 (0.0-0.9); Mono % (Auto) 12.3 % (0.0-8.0); Neut # (Auto) 5.2 th/mm3 (1.8-7.7); Neut % (Auto) 54.7 % (16.0-70.0); Platelet Count 83 th/mm3 (150-450); Red Blood Count 3.16 mil/mm3 (4.50-5.90); Red Cell Distribution Width 15.1 % (11.6-17.2); White Blood Count 9.5 th/mm3 (4.0-11.0)
[2018-08-20 06:25] LABS: Calcium 8.8 mg/dL (8.5-10.1); Carbon Dioxide 19.6 meq/L (21.0-32.0); Potassium 3.8 meq/L (3.5-5.1)
--- NOTE | 2018-08-20 07:31 | P.PNNEU ---
Subjective Subjective Comments: no 6 am sinemet no problems overnoc Active Medications: Active Medications Aspirin (Aspirin) 325 mg PO DAILY [facility] Last Admin: 08/19/18 10:47 Dose: 325 mg Carbidopa/Levodopa (Sinemet 25/100 Mg) 1 tab PO TID [facility] Last Admin: 08/19/18 20:45 Dose: 1 tab Dextrose (D50w Vial) 50 ml IV.PUSH UNSCH PRN PRN Reason: PER HYPOGLYCEMIA PROTOCOL Ferrous Sulfate (Ferosul) 325 mg PO TID [facility] Last Admin: 08/19/18 19:10 Dose: 325 mg Fluoxetine HCl (Prozac) 20 mg PO DAILY [facility] Last Admin: 08/19/18 10:47 Dose: 20 mg Furosemide (Lasix) 20 mg PO DAILY [facility] Last Admin: 08/19/18 10:47 Dose: 20 mg Glucagon (Glucagon Inj) 1 mg OTHER PRN PRN PRN Reason: for Hypoglycemia Protocol Heparin Sodium (Porcine) (Heparin Inj) 5,000 units SQ Q8H [facility] Last Admin: 08/20/18 05:48 Dose: 5,000 units Sodium Chloride (Ns Inj) 500 mls @ 0 mls/hr IV.SIG BOLUS [facility] Sodium Chloride (Ns Inj) 1,000 mls @ 70 mls/hr IV.CONT .[id number] [facility] Last Admin: 08/20/18 05:48 Dose: Not Given Insulin Aspart (Novolog Insulin Correctional Sugar Inj) 0 unit SQ ACHS AND 3AM ERICH; Protocol Last Admin: 08/20/18 03:13 Dose: Not Given Latanoprost (Xalatan 0.005% Opth Drops) 1 drop EACH EYE QPM [facility] Last Admin: 08/19/18 20:05 Dose: 1 drop Losartan Potassium (Cozaar) 100 mg PO DAILY [facility] Last Admin: 08/19/18 10:47 Dose: 100 mg Sodium Chloride (Ns Flush) 2 ml IV.FLUSH PRN PRN PRN Reason: FLUSH AFTER USING IV ACCESS Spironolactone (Aldactone) 25 mg PO BID [facility] Last Admin: 08/19/18 10:46 Dose: 25 mg Allergies/Adverse Reactions: Allergies Allergy/AdvReac Type Severity Reaction Status Date / Time No Known Allergies Allergy Verified 08/18/18 18:02 Physical Exam Vital signs: Vital Signs 08/19/18 07:49 08/19/18 08:00 08/19/18 11:46 Temperature 97.7 F 97.4 F L Pulse Rate 67 69 64 Respiratory Rate 16 16 Blood Pressure 141/67 H 153/69 H Pulse Oximetry 97 95 08/19/18 20:00 08/19/18 23:49 Temperature 97.7 F 97.5 F L Pulse Rate 66 75 Respiratory Rate 18 18 Blood Pressure 150/69 H 132/58 L Pulse Oximetry 100 99 Intake & Output 08/19/18 08/20/18 08/20/18 18:59 06:59 18:59 Intake Total 1000 / 1000 Balance 1000 / 1000 Intake: IV 1000 / 1000 NS Inj 1,000 ML @ 70 mls/hr IV. 1000 / 1000 CONT .[id number] [facility] Rx#:[id number] Other: Date of Last Bowel Movement 08/17/18 Narrative: can sit up on own to side of bed Objective Laboratory Results - last 24 hr 08/19/18 08/19/18 08/19/18 08:18 08:18 08:18 WBC RBC Hgb Hct MCV MCH MCHC RDW Plt Count MPV Prelim Diff (Auto) Neut % (Auto) Lymph % (Auto) [place] % (Auto) Eos % (Auto) Baso % (Auto) Neut # (Auto) Lymph # (Auto) [place] # (Auto) Eos # (Auto) Baso # (Auto) WBC Differential Diff Scan Differential Comment Platelet Estimate Platelet Morphology ESR Sodium Potassium Chloride Carbon Dioxide Anion Gap BUN Creatinine Estimated GFR POC Glucose Random Glucose Hemoglobin A1c 4.8 Calcium Triglycerides 116 Cholesterol 186 LDL Cholesterol, Calc 120 H HDL Cholesterol 42.8 Cholesterol/HDL Ratio 4.34 Vitamin B12 1454 H Folate 14.6 TSH 0.823 Free T4 0.89 Rheumatoid Factor Scrn Negative Rheumatoid Factor Titer Not Reportable 08/19/18 08/19/18 08/19/18 08:21 13:33 14:19 WBC RBC Hgb Hct MCV MCH MCHC RDW Plt Count MPV Prelim Diff (Auto) Neut % (Auto) Lymph % (Auto) [place] % (Auto) Eos % (Auto) Baso % (Auto) Neut # (Auto) Lymph # (Auto) [place] # (Auto) Eos # (Auto) Baso # (Auto) WBC Differential Diff Scan Differential Comment Platelet Estimate Platelet Morphology ESR 36 H Sodium Potassium Chloride Carbon Dioxide Anion Gap BUN Creatinine Estimated GFR POC Glucose 97 129 H Random Glucose Hemoglobin A1c Calcium Triglycerides Cholesterol LDL Cholesterol, Calc HDL Cholesterol Cholesterol/HDL Ratio Vitamin B12 Folate TSH Free T4 Rheumatoid Factor Scrn Rheumatoid Factor Titer 08/19/18 08/19/18 08/19/18 16:56 18:51 20:39 WBC RBC Hgb Hct MCV MCH MCHC RDW Plt Count MPV Prelim Diff (Auto) Neut % (Auto) Lymph % (Auto) [place] % (Auto) Eos % (Auto) Baso % (Auto) Neut # (Auto) Lymph # (Auto) [place] # (Auto) Eos # (Auto) Baso # (Auto) WBC Differential Diff Scan Differential Comment Platelet Estimate Platelet Morphology ESR Sodium 141 Potassium 4.2 D Chloride 113 H Carbon Dioxide 17.8 L Anion Gap 10 BUN 40 H Creatinine 1.95 H Estimated GFR 40 L POC Glucose 83 122 H Random Glucose 84 Hemoglobin A1c Calcium 8.7 Triglycerides Cholesterol LDL Cholesterol, Calc HDL Cholesterol Cholesterol/HDL Ratio Vitamin B12 Folate TSH Free T4 Rheumatoid Factor Scrn Rheumatoid Factor Titer 08/20/18 08/20/18 08/20/18 03:06 05:20 05:20 WBC 9.5 RBC 3.16 L Hgb 12.1 L Hct 35.3 L MCV 111.6 H MCH 38.1 H MCHC 34.2 RDW 15.1 Plt Count 83 L MPV 9.8 Prelim Diff (Auto) Slide review pending Neut % (Auto) 54.7 Lymph % (Auto) 26.4 [place] % (Auto) 12.3 H Eos % (Auto) 6.2 H Baso % (Auto) 0.4 Neut # (Auto) 5.2 Lymph # (Auto) 2.5 [place] # (Auto) 1.2 H Eos # (Auto) 0.6 H Baso # (Auto) 0.0 WBC Differential . Diff Scan Auto diff confirmed Differential Comment . Platelet Estimate Low L Platelet Morphology Enlarged H ESR Sodium 141 Potassium 3.8 Chloride 111 H Carbon Dioxide 19.6 L Anion Gap 10 BUN 36 H Creatinine 1.67 H Estimated GFR 48 L POC Glucose 94 Random Glucose 85 Hemoglobin A1c Calcium 8.8 Triglycerides Cholesterol LDL Cholesterol, Calc HDL Cholesterol Cholesterol/HDL Ratio Vitamin B12 Folate TSH Free T4 Rheumatoid Factor Scrn Rheumatoid Factor Titer Review/Management - Review/Management Plan: imp mri/a neg us neg echo neg ldl eeg slow only labs ok plan no cva ok to dc on asa when holter finished fu my opffice for gait change and stm nurse will call me after sinemet given this am for gait i think probably not tia
[2018-08-20 08:02] VITALS: RESP 16
--- NOTE | 2018-08-20 08:57 | P.PN ---
Subjective Interval history: Follow-up for acute onset of left lower extremity weakness, concern for TIA/ CVA. The patient is seen sitting upright on side of bed. He denies any current medical complaints. Denies any headache, lightheadedness, dizziness, visual/ speech changes, unilateral numbness/weakness, chest pain, or shortness of breath. He feels ready to go home. Lives at an [facility]. He agrees to home health care arrangements at [facility]. Physical Exam Vital signs: Vital Signs 08/19/18 11:46 08/19/18 20:00 08/19/18 23:49 Temperature 97.4 F L 97.7 F 97.5 F L Pulse Rate 64 69 75 Respiratory Rate 16 18 18 Blood Pressure 153/69 H 150/69 H 132/58 L Pulse Oximetry 95 100 99 08/20/18 07:59 Temperature 97.9 F Pulse Rate 74 Respiratory Rate 16 Blood Pressure 120/58 L Pulse Oximetry 98 Intake & Output 08/19/18 08/20/18 08/20/18 18:59 06:59 18:59 Intake Total 1000 / 1000 Balance 1000 / 1000 Intake: IV 1000 / 1000 NS Inj 1,000 ML @ 70 mls/hr IV. 1000 / 1000 CONT .[id number] [facility] Rx#:[id number] Other: Date of Last Bowel Movement 08/17/18 Narrative: GENERAL: Well-nourished, well-developed pleasant elderly male patient in [facility]. SKIN: Warm and dry. No rash. HEENT: Normocephalic. Atraumatic. Pupils equal and round. Mucous membranes pink and moist. NECK: Supple. Trachea midline. CARDIOVASCULAR: Regular rate and rhythm. No murmur appreciated. RESPIRATORY: No accessory muscle use. Clear to auscultation. Breath sounds equal bilaterally. GASTROINTESTINAL: Abdomen soft, non-tender, nondistended. Normoactive bowel sounds x4. MUSCULOSKELETAL: No obvious deformities. Extremities without clubbing, cyanosis , or edema. NEUROLOGICAL: Awake and alert. No obvious cranial nerve deficits. 5/5 strength of bilateral upper extremities, 4/5 strength of bilateral lower extremities however improved. Normal speech. Results - Labs CBC & Chem 7: 08/20/18 05:20 08/20/18 05:20 Laboratory Results - last 24 hr 08/19/18 08/19/18 08/19/18 08:18 08:18 08:18 WBC RBC Hgb Hct MCV MCH MCHC RDW Plt Count MPV Prelim Diff (Auto) Neut % (Auto) Lymph % (Auto) [place] % (Auto) Eos % (Auto) Baso % (Auto) Neut # (Auto) Lymph # (Auto) [place] # (Auto) Eos # (Auto) Baso # (Auto) WBC Differential Diff Scan Differential Comment Platelet Estimate Platelet Morphology ESR Sodium Potassium Chloride Carbon Dioxide Anion Gap BUN Creatinine Estimated GFR POC Glucose Random Glucose Hemoglobin A1c 4.8 Calcium Triglycerides 116 Cholesterol 186 LDL Cholesterol, Calc 120 H HDL Cholesterol 42.8 Cholesterol/HDL Ratio 4.34 Vitamin B12 1454 H Folate 14.6 TSH 0.823 Free T4 0.89 Rheumatoid Factor Scrn Negative Rheumatoid Factor Titer Not Reportable 08/19/18 08/19/18 08/19/18 13:33 14:19 16:56 WBC RBC Hgb Hct MCV MCH MCHC RDW Plt Count MPV Prelim Diff (Auto) Neut % (Auto) Lymph % (Auto) [place] % (Auto) Eos % (Auto) Baso % (Auto) Neut # (Auto) Lymph # (Auto) [place] # (Auto) Eos # (Auto) Baso # (Auto) WBC Differential Diff Scan Differential Comment Platelet Estimate Platelet Morphology ESR 36 H Sodium 141 Potassium 4.2 D Chloride 113 H Carbon Dioxide 17.8 L Anion Gap 10 BUN 40 H Creatinine 1.95 H Estimated GFR 40 L POC Glucose 129 H Random Glucose 84 Hemoglobin A1c Calcium 8.7 Triglycerides Cholesterol LDL Cholesterol, Calc HDL Cholesterol Cholesterol/HDL Ratio Vitamin B12 Folate TSH Free T4 Rheumatoid Factor Scrn Rheumatoid Factor Titer 08/19/18 08/19/18 08/20/18 18:51 20:39 03:06 WBC RBC Hgb Hct MCV MCH MCHC RDW Plt Count MPV Prelim Diff (Auto) Neut % (Auto) Lymph % (Auto) [place] % (Auto) Eos % (Auto) Baso % (Auto) Neut # (Auto) Lymph # (Auto) [place] # (Auto) Eos # (Auto) Baso # (Auto) WBC Differential Diff Scan Differential Comment Platelet Estimate Platelet Morphology ESR Sodium Potassium Chloride Carbon Dioxide Anion Gap BUN Creatinine Estimated GFR POC Glucose 83 122 H 94 Random Glucose Hemoglobin A1c Calcium Triglycerides Cholesterol LDL Cholesterol, Calc HDL Cholesterol Cholesterol/HDL Ratio Vitamin B12 Folate TSH Free T4 Rheumatoid Factor Scrn Rheumatoid Factor Titer 08/20/18 08/20/18 05:20 05:20 WBC 9.5 RBC 3.16 L Hgb 12.1 L Hct 35.3 L MCV 111.6 H MCH 38.1 H MCHC 34.2 RDW 15.1 Plt Count 83 L MPV 9.8 Prelim Diff (Auto) Slide review pending Neut % (Auto) 54.7 Lymph % (Auto) 26.4 [place] % (Auto) 12.3 H Eos % (Auto) 6.2 H Baso % (Auto) 0.4 Neut # (Auto) 5.2 Lymph # (Auto) 2.5 [place] # (Auto) 1.2 H Eos # (Auto) 0.6 H Baso # (Auto) 0.0 WBC Differential . Diff Scan Auto diff confirmed Differential Comment . Platelet Estimate Low L Platelet Morphology Enlarged H ESR Sodium 141 Potassium 3.8 Chloride 111 H Carbon Dioxide 19.6 L Anion Gap 10 BUN 36 H Creatinine 1.67 H Estimated GFR 48 L POC Glucose Random Glucose 85 Hemoglobin A1c Calcium 8.8 Triglycerides Cholesterol LDL Cholesterol, Calc HDL Cholesterol Cholesterol/HDL Ratio Vitamin B12 Folate TSH Free T4 Rheumatoid Factor Scrn Rheumatoid Factor Titer - Imaging Impressions Head MRI 08/19/18 00:00 CONCLUSION: 1. Senescent changes and mild periventricular ischemic white matter demyelination. 2. No acute abnormality. Specifically, no evidence for acute infarction or hemorrhage. Head MRA 08/19/18 00:00 CONCLUSION: 1. Limited examination due to patient motion particularly in the evaluation of the [employer] AIDE and cerebellar branches. 2. Otherwise, unremarkable MRA examination of the head. Specifically, no evidence for large vessel occlusion. Assessment and Plan - Plan 78-year-old male with past medical history significant for CHF, glaucoma and hypertension presents to the emergency department for evaluation of left lower extremity weakness. At approximately 4:30 PM this afternoon the patient's son noticed that his father was dragging his left leg behind him while walking with his walker. Acute Neurological Deficit with Left lower extremity weakness: Concern for TIA vs CVA. -Head CT reviewed and negative for acute process -Brain MRI/MRA reviewed, shows senescent changes and mild periventricular ischemic white matter demyelination -Carotid ultrasound with left ICA < 50% stenosis, and right ICA without any significant stenosis -Neuro checks -Monitor on telemetry -Neurology consulted, appreciate recommendations -PT beval, recommending rehab vs [facility] at [facility] -Dr. Delgado started the patient on Sinemet and Plavix, discontinue aspirin in 5 days -Symptoms improved, discussed with Dr. Delgado, cleared for discharge today -Neurology recommending Holter monitor, according to EKG department, no Holter monitors are available in the hospital and none planning on being returned today, recommended the patient follow-up with cardiology for outpatient Holter/event monitor. Acute kidney injury: suspect secondary to dehydration -BUN/creatinine 47/2.74 -IV fluid hydration -Monitor renal function, improving, creatinine 1.6 CHF: chronic, does not appear to be volume overloaded, dry on exam -Hold patient's home spironolactone and Lasix secondary to KAREN Glaucoma: chronic -Continue home latanoprost Hypertension: chronic, fairly well controlled -Continue home losartan, decrease dose to 50 mg daily -Monitor BP, adjust antihypertensives as needed Hyperkalemia -No EKG changes -Potassium 5.3 -Kayexalate -Monitor BMP, K 3.8 today, resolved DVT Prophylaxis: Heparin Discharge Planning: Discharge patient to [facility] with [facility] Condition on discharge: Stable Heart healthy diet as tolerated [facility] [place] activity Rx written: Plavix 75 mg daily, Sinemet 3 times daily Follow-up with primary care physician, neurology, and cardiology
[2018-08-20] MEDS: Ferrous Sulfate 325 MG Tablet PO SCH ×2 (09:12→14:33)
[2018-08-20] MEDS: Aspirin 325 MG Tablet PO SCH (09:12)
[2018-08-20] MEDS: FLUoxetine 20 MG Capsule PO SCH (09:13)
--- NOTE | 2018-08-20 10:29 | P.DCO ---
- Diagnosis (1) TIA (transient ischemic attack) Status: Acute (2) Acute renal insufficiency Status: Acute - Physical Therapy Order: Evaluate and treat, Improve ambulation, Strength and gait training - Home Health Nursing Order: Medical education, Signs/symptoms of disease process, Nursing assessment with vital signs - Case Management Consult Yes - Certification I have seen patient Jayesh Tomlin on 08/20/18. My clinical findings support the need for the requested home health care services because: Limited mobility due to disease progression, Deconditioned with increased weakness, Limited ability to care for self I certify that my clinical findings support that this patient is homebound because: Unsteady gait/balance, Unsafe to leave home unassisted, Unable to use public transportation
[2018-08-20 12:03] LABS: Anti-Nuclear Antibody Screen Neg (Neg)
[2018-08-20 14:37] LABS: Calcium 8.9 mg/dL (8.5-10.1); Carbon Dioxide 18.4 meq/L (21.0-32.0); Potassium 3.9 meq/L (3.5-5.1)
[2018-08-20 15:25] VITALS: BP 141/68; PULSE 79; TEMP 98; O2SAT 99
== END 2018-08-20 17:33 ==
LOC: NEPC 17:39 → NEDA 17:39 → NEPGCP 22:44
PROVIDERS: ADMIT Hospitalist; ATTEND Hospitalist

== ENCOUNTER 2018-09-14 14:43 | Observation (INO) ==
--- NOTE | 2018-09-14 15:10 | ED ---
HPI General Chief complaint: Weakness Stated complaint: gen weakness Time Seen by Provider: 09/14/18 14:57 Source: patient Limitations: no limitations History of Present Illness HPI Narrative: 78-year-old male presents from an [facility] with his son with concern of generalized weakness that the staff noted he was more drowsy. They stated that he also was complaining that his knee was bothering him and that was making him drag his left leg. He also notes that he has left shoulder pressure for the past couple of weeks but denies any chest pain. He denies any other complaints other than he does not want to be here. His son states when he was here recently he was diagnosed with dehydration and ruled out for a stroke. He states he stayed in the hospital about a month ago for a couple days. History is limited from patient. Related Data Home Medications Medication Instructions Recorded Confirmed ferrous sulfate 325 mg PO TID 08/18/18 09/14/18 fluoxetine 20 mg PO DAILY 08/18/18 09/14/18 furosemide 20 mg PO DAILY 08/18/18 09/14/18 latanoprost 1 drp OPHTHALMIC (EYE) QPM 08/18/18 09/14/18 Previous Rx's Medication Instructions Recorded aspirin 325 mg PO DAILY #30 tab 08/20/18 carbidopa-levodopa 1 tab PO TID@0600,1100,1500 30 08/20/18 Days #90 tab clopidogrel [Plavix] 75 mg PO DAILY #30 tab 08/20/18 losartan 50 mg PO DAILY #30 tab 08/20/18 Allergies Allergy/AdvReac Type Severity Reaction Status Date / Time No Known Allergies Allergy Verified 09/14/18 14:49 Review of Systems ROS: all other systems reviewed are negative [facility] Medical History Medical History Congestive heart failure (Acute) Glaucoma (Acute) Hypertension (Acute) Surgical History Surgical History History of appendectomy (Acute) Status post repair of hydrocele (Acute) Family History Family History Other Coronary artery disease Diabetes mellitus Social History Social History Substance History: No History of Abuse Second Hand Smoke Exposure: No Smoking Status: Never smoker How Often Do You Have a Drink Containing Alcohol: Never Recent Travel in [facility] within the Last 8 Weeks: No Recent Out of Country Travel within the Last 8 Weeks: No Exam Narrative Exam Narrative: GENERAL: 78 y/o male in no apparent distress SKIN: Focused skin assessment warm/dry. HEAD: Atraumatic. Normocephalic. EYES: Pupils equal and round. No scleral icterus. No injection or drainage. ENT: No nasal bleeding or discharge. Mucous membranes pink and moist. NECK: Trachea midline. No JVD. CARDIOVASCULAR: Regular rate and rhythm. No murmur appreciated. RESPIRATORY: No accessory muscle use. Clear to auscultation. Breath sounds equal bilaterally. GASTROINTESTINAL: Abdomen soft, non-tender, nondistended. MUSCULOSKELETAL: No obvious deformities. No clubbing. No cyanosis. No specific joint pain currently NEUROLOGICAL: Awake and alert. No obvious cranial nerve deficits. Motor grossly within normal limits. Normal speech. 5 out of 5 in all 4 extremities, equal grasp bilaterally PSYCHIATRIC: Appropriate mood and affect; insight and judgment normal. Course Reevaluation(s) Reevaluation #1: Patient's potassium is 6.6 with slight hemolysis. Will recollect and give by her, calcium and small bolus of IV fluids given acute concurrent renal failure. He will need admission to the hospital for further care. Consultations Consultation #1: dr escudero agrees to admit Initial Documented Vital Signs Temperature 98.5 F 09/14/18 14:47 Pulse Rate 73 09/14/18 14:47 Respiratory Rate 18 09/14/18 14:47 Blood Pressure 116/58 L 09/14/18 14:47 Pulse Oximetry 95 09/14/18 14:47 Last Documented Vital Signs Temperature 98.5 F 09/14/18 14:47 Pulse Rate 74 09/14/18 17:28 Respiratory Rate 17 09/14/18 17:28 Blood Pressure 118/58 L 09/14/18 17:28 Pulse Oximetry 98 09/14/18 17:[address] [facility] Narrative Medical decision making narrative: Will check blood work, imaging, urinalysis and reevaluate Medical Screen Exam Complete: Yes Emergency Medical Condition: Yes Differential Diagnosis Differential Diagnosis: Renal failure, UTI, electrolyte abnormality, intercranial Lab Data Lab results reviewed: Yes I reviewed the patient's lab results. Result diagrams: 09/14/18 15:10 09/14/18 16:20 Lab Results 09/14/18 09/14/18 09/14/18 Range/Units 15:10 15:10 15:10 WBC 7.9 (4.0-11.0) th/mm3 RBC 2.51 L (4.50-5.90) mil/mm3 Hgb 9.8 L (13.0-17.0) gm/dL Hct 28.9 L (39.0-51.0) % MCV 114.9 H (80.0-100.0) fL MCH 38.9 H (27.0-34.0) pg MCHC 33.9 (32.0-36.0) % RDW 14.9 (11.6-17.2) % Plt Count 86 L (150-450) th/mm3 MPV 9.4 (7.0-11.0) fL Prelim Diff (Auto) Slide review pending Neut % (Auto) 60.2 (16.0-70.0) % Lymph % (Auto) 18.3 (9.0-44.0) % [place] % (Auto) 16.5 H (0.0-8.0) % Eos % (Auto) 4.5 H (0.0-4.0) % Baso % (Auto) 0.5 (0.0-2.0) % Neut # (Auto) 4.8 (1.8-7.7) th/mm3 Lymph # (Auto) 1.5 (1.0-4.8) th/mm3 [place] # (Auto) 1.3 H (0.0-0.9) th/mm3 Eos # (Auto) 0.4 (0.0-0.4) th/mm3 Baso # (Auto) 0.0 (0.0-0.2) th/mm3 WBC Differential . Diff Scan Auto diff confirmed Differential Comment . PT 13.3 H (9.8-11.6) sec INR 1.3 Ratio Sodium 133 L (136-145) meq/L Potassium 6.6 H* (3.5-5.1) meq/L Chloride 106 (98-107) meq/L Carbon Dioxide 19.3 L (21.0-32.0) meq/L Anion Gap 8 (5-15) meq/L BUN 35 H (7-18) mg/dL Creatinine 2.29 H (0.60-1.30) mg/dL Estimated GFR 34 L (>89) mL/min Random Glucose 89 (74-106) mg/dL Calcium 8.6 (8.5-10.1) mg/dL Magnesium 2.1 (1.5-2.5) mg/dL Total Bilirubin 3.2 H (0.2-1.0) mg/dL AST 70 H (15-37) U/L ALT 24 (12-78) U/L Alkaline Phosphatase 144 H (45-117) U/L Total Creatine Kinase 138 (39-308) U/L Troponin I Less than 0.02 L (0.02-0.05) ng/mL Total Protein 7.1 (6.4-8.2) g/dL Albumin 2.3 L (3.4-5.0) g/dL Urine Color (Yellw/Straw) Urine Clarity (Clear) Urine pH (5.0-8.5) Ur Specific [place] (1.002-1.035) Urine Protein (Neg-Trace) mg/dL Urine Glucose (UA) (Negative) mg/dL Urine Ketones (Negative) mg/dL Urine Occult Blood (Negative) Urine Nitrate (Negative) Urine Bilirubin (Negative) Urine Urobilinogen (Less than 2) mg/dL Ur Leukocyte Esterase (Negative) Urine RBC (0-3) /hpf Urine WBC (0-5) /hpf Ur Squamous Epith Cells (0-5) /hpf Urine Bacteria (None) /hpf Hyaline Casts (0-3) /lpf Urine Mucus (Occasional) /lpf Micro UA Comment Ur Microscopic Review Urine Culture Comments 09/14/18 09/14/18 Range/Units 16:20 17:00 WBC (4.0-11.0) th/mm3 RBC (4.50-5.90) mil/mm3 Hgb (13.0-17.0) gm/dL Hct (39.0-51.0) % MCV (80.0-100.0) fL MCH (27.0-34.0) pg MCHC (32.0-36.0) % RDW (11.6-17.2) % Plt Count (150-450) th/mm3 MPV (7.0-11.0) fL Prelim Diff (Auto) Neut % (Auto) (16.0-70.0) % Lymph % (Auto) (9.0-44.0) % [place] % (Auto) (0.0-8.0) % Eos % (Auto) (0.0-4.0) % Baso % (Auto) (0.0-2.0) % Neut # (Auto) (1.8-7.7) th/mm3 Lymph # (Auto) (1.0-4.8) th/mm3 [place] # (Auto) (0.0-0.9) th/mm3 Eos # (Auto) (0.0-0.4) th/mm3 Baso # (Auto) (0.0-0.2) th/mm3 WBC Differential Diff Scan Differential Comment PT (9.8-11.6) sec INR Ratio Sodium (136-145) meq/L Potassium 6.0 H (3.5-5.1) meq/L Chloride (98-107) meq/L Carbon Dioxide (21.0-32.0) meq/L Anion Gap (5-15) meq/L BUN (7-18) mg/dL Creatinine (0.60-1.30) mg/dL Estimated GFR (>89) mL/min Random Glucose (74-106) mg/dL Calcium (8.5-10.1) mg/dL Magnesium (1.5-2.5) mg/dL Total Bilirubin (0.2-1.0) mg/dL AST (15-37) U/L ALT (12-78) U/L Alkaline Phosphatase (45-117) U/L Total Creatine Kinase (39-308) U/L Troponin I (0.02-0.05) ng/mL Total Protein (6.4-8.2) g/dL Albumin (3.4-5.0) g/dL Urine Color Yellow (Yellw/Straw) Urine Clarity Clear (Clear) Urine pH 5.0 (5.0-8.5) Ur Specific [place] 1.012 (1.002-1.035) Urine Protein Negative (Neg-Trace) mg/dL Urine Glucose (UA) Negative (Negative) mg/dL Urine Ketones Negative (Negative) mg/dL Urine Occult Blood Negative (Negative) Urine Nitrate Negative (Negative) Urine Bilirubin Negative (Negative) Urine Urobilinogen 4 or greater (Less than 2) mg/dL Ur Leukocyte Esterase Negative (Negative) Urine RBC Less than 1 (0-3) /hpf Urine WBC 2 (0-5) /hpf Ur Squamous Epith Cells 1 (0-5) /hpf Urine Bacteria Rare H (None) /hpf Hyaline Casts 46 (0-3) /lpf Urine Mucus Few H (Occasional) /lpf Micro UA Comment Culture not ind Ur Microscopic Review Not Reportable Urine Culture Comments Culture not ind Imaging Data Attestation: I personally reviewed and interpreted this imaging study as follows : Radiologist's impression: Chest X-Ray 09/14/18 15:03 CONCLUSION: No acute cardiopulmonary findings stable compared to previous dated 08/18/2018. Head CT 09/14/18 15:03 CONCLUSION: 1. Cerebral atrophy. 2. Mild periventricular and subcortical white matter small vessel ischemic changes bilaterally. 3. No acute hemorrhage, acute infarct, mass effect or extra-axial fluid collections. . Knee X-Ray 09/14/18 15:10 CONCLUSION: 1. 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 2. No acute fracture or dislocation. Shoulder X-Ray 09/14/18 15:10 CONCLUSION: 1. Mild degenerative changes involving the left glenohumeral and acromioclavicular joints. 2. No acute fracture or dislocation. Discharge Plan Discharge Disposition Patient Disposition: 30 Still Patient Discharge Details Diagnosis: Acute renal insufficiency, Hyperkalemia, Weakness Physicians Team ED Provider: Philly Moore Primary Care Provider: Mike Bower V Attending Provider: Adelfo Escudero Interventions Interventions: Vital Signs Last Done: 09/14/18 17:28 Status ED Status: Admitted Patient
[2018-09-14 15:38] LABS: Baso % (Auto) 0.5 % (0.0-2.0); Eos # (Auto) 0.4 th/mm3 (0.0-0.4); Eos % (Auto) 4.5 % (0.0-4.0); Hematocrit 28.9 % (39.0-51.0); Hemoglobin 9.8 gm/dL (13.0-17.0); Lymph # (Auto) 1.5 th/mm3 (1.0-4.8); Lymph % (Auto) 18.3 % (9.0-44.0); Mean Corpuscular HGB Conc 33.9 % (32.0-36.0); Mean Corpuscular Hemoglobin 38.9 pg (27.0-34.0); Mean Corpuscular Volume 114.9 fL (80.0-100.0); Mean Platelet Volume 9.4 fL (7.0-11.0); Mono # (Auto) 1.3 th/mm3 (0.0-0.9); Mono % (Auto) 16.5 % (0.0-8.0); Neut # (Auto) 4.8 th/mm3 (1.8-7.7); Neut % (Auto) 60.2 % (16.0-70.0); Platelet Count 86 th/mm3 (150-450); Red Blood Count 2.51 mil/mm3 (4.50-5.90); Red Cell Distribution Width 14.9 % (11.6-17.2); White Blood Count 7.9 th/mm3 (4.0-11.0)
[2018-09-14 15:47] LABS: INR 1.3 Ratio; Prothrombin Time 13.3 sec (9.8-11.6)
--- NOTE | 2018-09-14 15:51 | XR ---
EXAM DATE: 09/14/2018 3:25 PM EST AGE/SEX: 78 years / Male INDICATIONS: Palpitations CLINICAL DATA: This is the patient's initial encounter. Patient reports that signs and symptoms have been present for 1 day and indicates a pain score of Nonresponsive. MEDICAL/SURGICAL HISTORY: Chronic obstructive pulmonary disease. Hypertension. glaucoma Appen dectomy. hydrocele repair COMPARISON: C, CHEST 1V SINGLE AP, 08/18/2018. . FINDINGS: A single AP view of the chest demonstrates the lungs to be symmetrically aerated without evidence of mass, infiltrate or effusion. The cardiomediastinal contours are unremarkable. Osseous structures a re intact. CONCLUSION: No acute cardiopulmonary findings stable compared to previous dated 08/18/2018. Electronically signed by: Osmany Brown MD 09/14/2018 3:49 PM EST
--- NOTE | 2018-09-14 16:01 | XR ---
EXAM DATE: 09/14/2018 3:48 PM EST AGE/SEX: 78 years / Male INDICATIONS: Left knee pain, no known injury. CLINICAL DATA: This is the patient's initial encounter. Patient reports that signs and symptoms have been present for 2 weeks and indicates a pain score of 4/10. MEDICAL/SURGICAL HISTORY: None. None. COMPARISON: No prior exams available for comparison. FINDINGS: Severe osteoarthritis is noted involving the femoral-tibial and patellofemoral joints. There is no ac [place] fracture or dislocation. CONCLUSION: 1. 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 2. No acute fracture or dislocation. Electronically signed by: Ambrocio Lockwood MD 09/14/2018 3:59 PM EST
--- NOTE | 2018-09-14 16:05 | XR ---
EXAM DATE: 09/14/2018 3:49 PM EST AGE/SEX: 78 years / Male INDICATIONS: Left shoulder pain, no known injury. CLINICAL DATA: This is the patient's initial encounter. Patient reports that signs and symptoms have been present for 2 weeks and indicates a pain score of 4/10. MEDICAL/SURGICAL HISTORY: None. None. COMPARISON: No prior exams available for comparison. FINDINGS: Mild degenerative changes are noted involving the left acromioclavicular and glenohumeral joints. The re is no acute fracture or dislocation. CONCLUSION: 1. Mild degenerative changes involving the left glenohumeral and acromioclavicular joints. 2. No acute fracture or dislocation. Electronically signed by: Ambrocio Lockwood MD 09/14/2018 4:04 PM EST
[2018-09-14 16:10] LABS: Alanine Aminotransferase 24 U/L (12-78); Albumin 2.3 g/dL (3.4-5.0); Alkaline Phosphatase 144 U/L (45-117); Anion Gap 8 meq/L (5-15); Aspartate Aminotransferase 70 U/L (15-37); Blood Urea Nitrogen 35 mg/dL (7-18); Calcium 8.6 mg/dL (8.5-10.1); Carbon Dioxide 19.3 meq/L (21.0-32.0); Chloride 106 meq/L (98-107); Creatine Kinase 138 U/L (39-308); Glomerular Filtration Rate 34 mL/min (>89); Glucose,Random 89 mg/dL (74-106); Magnesium 2.1 mg/dL (1.5-2.5); Sodium 133 meq/L (136-145); Total Protein 7.1 g/dL (6.4-8.2)
[2018-09-14 16:12] LABS: Potassium 6.6 meq/L (3.5-5.1)
[2018-09-14] MEDS ORDERED: Calcium Gluconate Inj 1 GM in Sodium Chlor 0.9% Inj 100 ML IV.SIG ONE ×2 (16:13→18:00)
[2018-09-14] MEDS ORDERED: Sodium Chlor 0.9% Inj 500 ML IV.SIG SCH (17:00)
[2018-09-14 17:18] LABS: Bacteria,Urine Rare /hpf; Bilirubin,Urine Negative (Negative); Clarity,Urine Clear (Clear); Color,Urine Yellow (Yellw/Straw); Glucose,Urine (UA) Negative (Negative); Hyaline Casts,Urine 46 /lpf (0-3); Leukocyte Esterase,Urine Negative (Negative); Mucus,Urine Few /lpf (Occasional); Nitrite,Urine Negative (Negative); Specific Gravity,Urine 1.012 (1.002-1.035); Squamous Epithelial Cell,Urine 1 /hpf (0-5); Urobilinogen,Urine 4 or Greater mg/dL (Less than 2)
--- NOTE | 2018-09-14 17:22 | CT ---
EXAM DATE: 09/14/2018 5:09 PM EST AGE/SEX: 78 years / Male INDICATIONS: General weakness. CLINICAL DATA: This is the patient's initial encounter. Patient reports that signs and symptoms have been present for 1 day and indicates a pain score of 0/10. MEDICAL/SURGICAL HISTORY: Congestive heart failure. Hypertension. None. RADIATION DOSE: 56.35 CTDI (mGy) COMPARISON: [facility], CT HEAD W/O CONTRAST, 08/18/2018. [facility], MR HEAD W/O CONTRAST, 08/19/2018. . TECHNIQUE: CT of the head without contrast. Using automated exposure control and adjustment of the mA and/or kV according to patient size, radiation dose was kept as low as reasonably achievable to ob tain optimal diagnostic quality images. DICOM format image data is available electronically for revi ew and comparison. FINDINGS: Cerebrum: Cerebral atrophy is again noted. No acute hemorrhage, acute infarct, mass effect or extra- axial fluid collection is noted. Mild periventricular and subcortical white matter small vessel ische lokesh changes are noted bilaterally. Posterior Fossa: The cerebellum and brainstem are intact. The 4th ventricle is midline. The cerebe llopontine angle is unremarkable. Extracranial: The visualized portion of the orbits is intact. Bilateral orbital surgery has been per formed. Skull: The calvaria is intact. No evidence of skull fracture. CONCLUSION: 1. Cerebral atrophy. 2. Mild periventricular and subcortical white matter small vessel ischemic changes bilaterally. 3. No acute hemorrhage, acute infarct, mass effect or extra-axial fluid collections. . Electronically signed by: Ambrocio Lockwood MD 09/14/2018 5:20 PM EST
[2018-09-14] MEDS ORDERED: Sodium Polystyrene Sulfonate/Sorbitol Liq 15 GM/60 ML UDC PO ONE (17:29)
[2018-09-14] MEDS ORDERED: Bisacodyl 10 MG Supp RECTAL PRN (17:31)
[2018-09-14] MEDS ORDERED: Acetaminophen 325 MG Tablet PO PRN (17:31)
[2018-09-14] MEDS ORDERED: Sod Chloride 0.9% Inj 1,000 ML IV.CONT SCH (17:45)
--- NOTE | 2018-09-14 20:30 | P.HP ---
History of Present Illness Service: [facility] Primary Care Physician: Mike Bower MD History of Present Illness: 78-year-old male with a past medical history significant for CHF (EF of 65% on 08/19/18), glaucoma and hypertension presents to the emergency department for the evaluation of gait changes and altered mental status. The patient was in his assisted living facility when his son was called stating that he was more lethargic than usual and was dragging his left leg while walking. Similar symptoms on worked up for TIA vs CVA. Workup was negative and recommendations from neurologist to follow-up as an outpatient for gait changes. In speaking to the patient, he reports that he knows the staff and his son were concerned about his gait and mental status however he denies noticing any of these symptoms himself. He states he feels well and denies all complaints. No chest pain or shortness of breath. No abdominal pain. No nausea/vomiting/diarrhea. No fever/chills. Patient's lab work revealed hyperkalemia and acute on chronic renal insufficiency. Review of Systems All other systems reviewed negative except as stated in HPI PMFSH - History History Provided By: Family Member, Medical Record - Medical History Medical History: Medical History (Last Reviewed 09/14/18 @ 20:18 by Meera Castillo MD) Congestive heart failure Glaucoma Hypertension - Surgical History Surgical History: Surgical History (Last Reviewed 09/14/18 @ 20:18 by Meera Castillo MD) History of appendectomy Status post repair of hydrocele - Family History Family History: Family History (Last Reviewed 09/14/18 @ 20:18 by Meera Castillo MD) Other Coronary artery disease Diabetes mellitus - Social History I have reviewed the patient's Social History: Yes - Tobacco History Second Hand Smoke Exposure: No Smoking Status: Never smoker - Alcohol History How Often Do You Have a Drink Containing Alcohol: Never - Substance Use History Substance History: No History of Abuse - Travel History Recent Travel in the [place] Within the Last 8 Weeks: No Recent Travel Out of the Country Within the Last 8 Weeks: No - Immunization History Tetanus Immunization: <5 Years Medications and Allergies Active Medications: Active Medications Acetaminophen (Tylenol) 650 mg PO Q4H PRN PRN Reason: Temp > 100.4 Bisacodyl (Dulcolax Supp) 10 mg RECTAL DAILY PRN PRN Reason: SEVERE CONSITIPATION Sodium Chloride (Ns Inj) 1,000 mls @ 50 mls/hr IV.CONT .Q20H ERICH Stop: 09/15/18 13:44 Lactulose (Lactulose Liq) 30 ml PO DAILY PRN PRN Reason: SEVERE CONSITIPATION Ondansetron HCl (Zofran Inj) 4 mg IV.PUSH Q6H PRN PRN Reason: NAUSEA OR VOMITING Sennosides (Senokot) 17.2 mg PO Q12H PRN PRN Reason: Moderate Constipation Sodium Chloride (Ns Flush) 2 ml IV.FLUSH PRN PRN PRN Reason: FLUSH AFTER USING IV ACCESS Allergies Allergy/AdvReac Type Severity Reaction Status Date / Time No Known Allergies Allergy Verified 09/14/18 14:49 Home Medications Medication Instructions Recorded Confirmed Type ferrous sulfate 325 mg PO TID 08/18/18 09/14/18 History fluoxetine 20 mg PO DAILY 08/18/18 09/14/18 History furosemide 20 mg PO DAILY 08/18/18 09/14/18 History latanoprost 1 drp OPHTHALMIC (EYE) QPM 08/18/18 09/14/18 History Exam Vital signs: Vital Signs 09/14/18 14:47 09/14/18 15:03 09/14/18 17:28 Temperature 98.5 F Pulse Rate 73 74 Respiratory Rate 18 17 Blood Pressure 116/58 L 118/58 L Pulse Oximetry 95 100 98 09/14/18 18:51 09/14/18 19:38 Temperature 98.9 F Pulse Rate 81 76 Respiratory Rate 17 16 Blood Pressure 118/68 121/57 L Pulse Oximetry 100 92 L Intake & Output 09/14/18 09/14/18 09/15/18 06:59 18:59 06:59 Intake Total 110 / 110 500 / 500 Balance 110 / 110 500 / 500 Weight 65.771 kg Intake: IV 110 / 110 500 / 500 Calcium Gluconate Inj 1 GM In 110 / 110 NS Inj 100 ML @ 110 mls/hr IV. SIG ONCE ONE Rx#:[id number] NS Inj 500 ML @ 1000 mls/hr IV. 500 / 500 SIG BOLUS ERICH Rx#:[id number] Other: Date of Last Bowel Movement 09/14/18 Narrative: Gen.: No acute distress Head: Normocephalic. Atraumatic. EENT: Pupils equal round and reactive to light. Nose without drainage. Airway intact. Throat without injection. Cardiovascular: Regular rate and rhythm. No murmurs, rubs or gallops. Respiratory: Lungs clear to auscultation bilaterally. No wheezes or rhonchi. Abdomen: Soft, nontender, nondistended. No peritoneal signs. Musculoskeletal: No gross deformities. No edema. Skin: No obvious rashes or erythema. Neuro: Sensory intact and equal bilaterally. Cranial nerves II through XII intact. Alert and oriented x3. Normal speech. Strength 5/5 throughout. Results - Labs CBC & Chem 7: 09/14/18 15:10 09/14/18 16:20 Labs: Laboratory Results - last 24 hr 09/14/18 09/14/18 09/14/18 15:10 15:10 15:10 WBC 7.9 RBC 2.51 L Hgb 9.8 L Hct 28.9 L MCV 114.9 H MCH 38.9 H MCHC 33.9 RDW 14.9 Plt Count 86 L MPV 9.4 Prelim Diff (Auto) Slide review pending Neut % (Auto) 60.2 Lymph % (Auto) 18.3 [place] % (Auto) 16.5 H Eos % (Auto) 4.5 H Baso % (Auto) 0.5 Neut # (Auto) 4.8 Lymph # (Auto) 1.5 [place] # (Auto) 1.3 H Eos # (Auto) 0.4 Baso # (Auto) 0.0 WBC Differential . Diff Scan Auto diff confirmed Differential Comment . PT 13.3 H INR 1.3 Sodium 133 L Potassium 6.6 H* Chloride 106 Carbon Dioxide 19.3 L Anion Gap 8 BUN 35 H Creatinine 2.29 H Estimated GFR 34 L Random Glucose 89 Calcium 8.6 Magnesium 2.1 Total Bilirubin 3.2 H AST 70 H ALT 24 Alkaline Phosphatase 144 H Total Creatine Kinase 138 Troponin I Less than 0.02 L Total Protein 7.1 Albumin 2.3 L Urine Color Urine Clarity Urine pH Ur Specific [place] Urine Protein Urine Glucose (UA) Urine Ketones Urine Occult Blood Urine Nitrate Urine Bilirubin Urine Urobilinogen Ur Leukocyte Esterase Urine RBC Urine WBC Ur Squamous Epith Cells Urine Bacteria Hyaline Casts Urine Mucus Micro UA Comment Ur Microscopic Review Urine Culture Comments 09/14/18 09/14/18 16:20 17:00 WBC RBC Hgb Hct MCV MCH MCHC RDW Plt Count MPV Prelim Diff (Auto) Neut % (Auto) Lymph % (Auto) [place] % (Auto) Eos % (Auto) Baso % (Auto) Neut # (Auto) Lymph # (Auto) [place] # (Auto) Eos # (Auto) Baso # (Auto) WBC Differential Diff Scan Differential Comment PT INR Sodium Potassium 6.0 H Chloride Carbon Dioxide Anion Gap BUN Creatinine Estimated GFR Random Glucose Calcium Magnesium Total Bilirubin AST ALT Alkaline Phosphatase Total Creatine Kinase Troponin I Total Protein Albumin Urine Color Yellow Urine Clarity Clear Urine pH 5.0 Ur Specific [place] 1.012 Urine Protein Negative Urine Glucose (UA) Negative Urine Ketones Negative Urine Occult Blood Negative Urine Nitrate Negative Urine Bilirubin Negative Urine Urobilinogen 4 or greater Ur Leukocyte Esterase Negative Urine RBC Less than 1 Urine WBC 2 Ur Squamous Epith Cells 1 Urine Bacteria Rare H Hyaline Casts 46 Urine Mucus Few H Micro UA Comment Culture not ind Ur Microscopic Review Not Reportable Urine Culture Comments Culture not ind - Imaging Impressions Chest X-Ray 09/14/18 15:03 CONCLUSION: No acute cardiopulmonary findings stable compared to previous dated 08/18/2018. Head CT 09/14/18 15:03 CONCLUSION: 1. Cerebral atrophy. 2. Mild periventricular and subcortical white matter small vessel ischemic changes bilaterally. 3. No acute hemorrhage, acute infarct, mass effect or extra-axial fluid collections. . Knee X-Ray 09/14/18 15:10 CONCLUSION: 1. 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 2. No acute fracture or dislocation. Shoulder X-Ray 09/14/18 15:10 CONCLUSION: 1. Mild degenerative changes involving the left glenohumeral and acromioclavicular joints. 2. No acute fracture or dislocation. Caprini VTE Risk Assessment Caprini VTE Risk Assessment: Moderate/High Risk (score >= 2) Caprini Risk Assessment Model: Point Value = 1 Point Value = 2 Point Value = 3 Point Value = 5 Age 41-60 Minor surgery BMI > 25 kg/m2 Swollen legs Varicose veins or History of unexplained or recurrent spontaneous Oral contraceptives or hormone replacement Sepsis (< 1 month) Serious lung disease, including pneumonia (< 1 month) Abnormal pulmonary function Acute myocardial infarction Congestive heart failure (< 1 month) History of inflammatory bowel disease Medical patient at bed rest Age 61-74 Arthroscopic surgery Major open surgery (> 45 min) Laparoscopic surgery (> 45 min) Malignancy Confined to bed (> 72 hours) Immobilizing plaster cast Central venous access Age >= 75 History of VTE Family history of VTE Factor V Leiden Prothrombin [id number] Lupus anticoagulant Anticardiolipin antibodies Elevated serum homocysteine Heparin-induced thrombocytopenia Other congenital or acquired thrombophilia Stroke (< 1 month) Elective arthroplasty Hip, pelvis, or leg fracture Acute spinal cord injury (< 1 month) Prophylaxis Regimen: Total Risk Factor Score Risk Level Prophylaxis Regimen 0-1 Low Early ambulation 2 Moderate Order ONE of the following: *Sequential Compression Device (SCD) *Heparin 5000 units SQ BID 3-4 Higher Order ONE of the following medications: *Heparin 5000 units SQ TID *Enoxaparin/Lovenox 40 mg SQ daily (WT < 150 kg, CrCl > 30 mL/min) *Enoxaparin/Lovenox 30 mg SQ daily (WT < 150 kg, CrCl > 10-29 mL/min) *Enoxaparin/Lovenox 30 mg SQ BID (WT < 150 kg, CrCl > 30 mL/min) AND/OR *Sequential Compression Device (SCD) 5 or more Highest Order ONE of the following medications: *Heparin 5000 units SQ TID (Preferred with Epidurals) *Enoxaparin/Lovenox 40 mg SQ daily (WT < 150 kg, CrCl > 30 mL/min) *Enoxaparin/Lovenox 30 mg SQ daily (WT < 150 kg, CrCl > 10-29 mL/min) *Enoxaparin/Lovenox 30 mg SQ BID (WT < 150 kg, CrCl > 30 mL/min) AND *Sequential Compression Device (SCD) Assessment and Plan - Plan Assessment/plan: 1. Altered mental status Likely secondary to metabolic encephalopathy Head CT negative for acute process Plan as below 2. Hyperkalemia Potassium 6.6 Status post Kayexalate, calcium gluconate and IV fluid hydration Repeat potassium 6.0 Monitor BMP 3. Acute renal failure Cr 2.29, was 1.3 on 08/20/18 Renal ultrasound pending Gentle IV fluid hydration, caution as patient with history of CHF Holding Lasix 4. Gait instability Continue home Sinemet PT F/u with Neurology as outpatient 5. History of neurologic deficit Continue Plavix per neurology recommendation from previous hospitalization 6. Hypertension Holding home sin for KAREN Clonidine as needed 7. CHF Holding Lasix as above 8. Anemia Hemoglobin 9.8, baseline 12 Iron studies pending Continue home iron Monitor CBC FEN Cardiac diet Electrolytes: As above NS at 50 cc/hour times 1 L Heparin
--- NOTE | 2018-09-14 20:43 | US ---
EXAM DATE: 09/14/2018 8:38 PM EST AGE/SEX: 78 years / Male INDICATIONS: Abnormal labs. CLINICAL DATA: This is the patient's initial encounter. Patient reports that signs and symptoms have been present for 1 day and indicates a pain score of 0/10. MEDICAL/SURGICAL HISTORY: Hypertension. CHF. Glaucoma. Appendectomy. Status post repair of hyd rocele. COMPARISON: No prior exams available for comparison. MEASUREMENTS: Right Kidney:__9.2 x 4.7 x 5.8 cm Left Kidney:__9.8 x 5.4 x 5.4 cm FINDINGS: Right Kidney: Normal echotexture and cortical thickness. No mass or hydronephrosis. Left Kidney: Normal echotexture and cortical thickness. No mass or hydronephrosis. Bladder: Within normal limits given the degree of distension. Other: None. CONCLUSION: 1. Negative renal sonogram. Electronically signed by: Will Rendon MD 09/14/2018 8:42 PM EST
[2018-09-14] MEDS: Heparin - SQ 10,000 UNITS/ML Vial SQ SCH (21:46)
[2018-09-14] MEDS: Latanoprost 0.005% Opth Drops 2.5 ML Bottle EACH EYE SCH (22:13)
[2018-09-14 23:27] LABS: Calcium 8.8 mg/dL (8.5-10.1); Carbon Dioxide 21.2 meq/L (21.0-32.0); Potassium 5.1 meq/L (3.5-5.1)
[2018-09-15 07:01] LABS: Baso % (Auto) 0.7 % (0.0-2.0); Eos # (Auto) 0.3 th/mm3 (0.0-0.4); Eos % (Auto) 5.4 % (0.0-4.0); Hematocrit 28.1 % (39.0-51.0); Hemoglobin 9.5 gm/dL (13.0-17.0); Lymph # (Auto) 1.4 th/mm3 (1.0-4.8); Lymph % (Auto) 21.6 % (9.0-44.0); Mean Corpuscular HGB Conc 33.8 % (32.0-36.0); Mean Corpuscular Hemoglobin 38.2 pg (27.0-34.0); Mean Corpuscular Volume 113.1 fL (80.0-100.0); Mono # (Auto) 0.9 th/mm3 (0.0-0.9); Mono % (Auto) 14.3 % (0.0-8.0); Neut # (Auto) 3.6 th/mm3 (1.8-7.7); Platelet Count 60 th/mm3 (150-450); Red Blood Count 2.48 mil/mm3 (4.50-5.90); White Blood Count 6.3 th/mm3 (4.0-11.0)
[2018-09-15 07:24] LABS: Calcium 8.7 mg/dL (8.5-10.1); Carbon Dioxide 21.2 meq/L (21.0-32.0); Potassium 4.5 meq/L (3.5-5.1)
[2018-09-15 07:26] LABS: % Iron Saturation 96.3 % (20-50)
[2018-09-15] MEDS: FLUoxetine 20 MG Capsule PO SCH (08:20)
[2018-09-15] MEDS: Ferrous Sulfate 325 MG Tablet PO SCH ×3 (08:20→17:21)
[2018-09-15] MEDS: Heparin - SQ 10,000 UNITS/ML Vial SQ SCH ×2 (08:20→20:46)
--- NOTE | 2018-09-15 12:31 | ECG ---
Date Performed: 09/14/2018 Time Performed: 19:01:59 PTAGE: 78 years EKG: Sinus rhythm NONSPECIFIC T-WAVE ABNORMALITY BORDERLINE ECG PREVIOUS TRACING : 08/18/2018 18.34 DOCTOR: Smith Newton Interpretating Date/Time 09/15/2018 12:30:06
--- NOTE | 2018-09-15 12:44 | P.PNIM ---
Subjective Interval history: The patient was resting in bed. He wanted to go home today. He had no acute complaints. He said he has been up out of bed. Discussed with his son over the phone. Physical Exam Vital signs: Vital Signs 09/14/18 14:47 09/14/18 15:03 09/14/18 17:28 Temperature 98.5 F Pulse Rate 73 74 Respiratory Rate 18 17 Blood Pressure 116/58 L 118/58 L Pulse Oximetry 95 100 98 09/14/18 18:51 09/14/18 19:00 09/14/18 19:38 Temperature 98.9 F Pulse Rate 81 80 76 Respiratory Rate 17 16 Blood Pressure 118/68 121/57 L Pulse Oximetry 100 92 L 09/14/18 20:00 09/14/18 21:00 09/14/18 22:00 Temperature Pulse Rate 80 87 76 Respiratory Rate Blood Pressure Pulse Oximetry 92 L 09/14/18 23:00 09/15/18 00:00 09/15/18 01:00 Temperature 97.6 F Pulse Rate 74 74 75 Respiratory Rate 18 Blood Pressure 130/62 Pulse Oximetry 94 L 09/15/18 02:00 09/15/18 03:00 09/15/18 04:00 Temperature 97.5 F L Pulse Rate 68 71 71 Respiratory Rate 16 Blood Pressure 130/66 Pulse Oximetry 97 09/15/18 05:00 09/15/18 06:00 09/15/18 07:00 Temperature Pulse Rate 65 68 68 Respiratory Rate Blood Pressure Pulse Oximetry 09/15/18 08:00 09/15/18 09:00 09/15/18 09:30 Temperature 98.6 F Pulse Rate 66 70 Respiratory Rate 20 Blood Pressure 115/53 L Pulse Oximetry 93 L 93 L 09/15/18 10:00 09/15/18 11:00 09/15/18 11:21 Temperature 97.8 F Pulse Rate 72 66 74 Respiratory Rate 18 Blood Pressure 120/60 Pulse Oximetry 92 L 09/15/18 12:00 Temperature Pulse Rate 74 Respiratory Rate Blood Pressure Pulse Oximetry Intake & Output 09/14/18 09/15/18 09/15/18 18:59 06:59 18:59 Intake Total 110 / 110 740 / 740 Output Total 600 / 600 Balance 110 / 110 140 / 140 Weight 65.771 kg 80.1 kg Intake: IV 110 / 110 500 / 500 Calcium Gluconate Inj 1 GM In 110 / 110 NS Inj 100 ML @ 110 mls/hr IV. SIG ONCE ONE Rx#:[id number] NS Inj 500 ML @ 1000 mls/hr IV. 500 / 500 SIG BOLUS ERICH Rx#:[id number] Oral 240 / 240 Output: Urine 600 / 600 Other: # Voids 2 Date of Last Bowel Movement 09/15/18 09/15/18 # Bowel Movements 2 Narrative: Gen.: No acute distress Head: Normocephalic. Atraumatic. EENT: Pupils equal round and reactive to light. Nose without drainage. Airway intact. Throat without injection. Cardiovascular: Regular rate and rhythm. No murmurs, rubs or gallops. Respiratory: Lungs clear to auscultation bilaterally. No wheezes or rhonchi. Abdomen: Soft, nontender, nondistended. No peritoneal signs. Musculoskeletal: No gross deformities. No edema. Skin: No obvious rashes or erythema. Neuro: Sensory intact and equal bilaterally. Cranial nerves II through XII intact. Alert and oriented x3. Normal speech. Strength 5/5 throughout. Results - Labs CBC & Chem 7: 09/15/18 06:45 09/15/18 06:45 Laboratory Results - last 24 hr 09/14/18 09/14/18 09/14/18 15:10 15:10 15:10 WBC 7.9 RBC 2.51 L Hgb 9.8 L Hct 28.9 L MCV 114.9 H MCH 38.9 H MCHC 33.9 RDW 14.9 Plt Count 86 L MPV 9.4 Prelim Diff (Auto) Slide review pending Neut % (Auto) 60.2 Lymph % (Auto) 18.3 [place] % (Auto) 16.5 H Eos % (Auto) 4.5 H Baso % (Auto) 0.5 Neut # (Auto) 4.8 Lymph # (Auto) 1.5 [place] # (Auto) 1.3 H Eos # (Auto) 0.4 Baso # (Auto) 0.0 WBC Differential . Diff Scan Auto diff confirmed Differential Comment . PT 13.3 H INR 1.3 Sodium 133 L Potassium 6.6 H* Chloride 106 Carbon Dioxide 19.3 L Anion Gap 8 BUN 35 H Creatinine 2.29 H Estimated GFR 34 L Random Glucose 89 Calcium 8.6 Magnesium 2.1 Iron TIBC % Saturation Ferritin Total Bilirubin 3.2 H AST 70 H ALT 24 Alkaline Phosphatase 144 H Total Creatine Kinase 138 Troponin I Less than 0.02 L Total Protein 7.1 Albumin 2.3 L Urine Color Urine Clarity Urine pH Ur Specific [place] Urine Protein Urine Glucose (UA) Urine Ketones Urine Occult Blood Urine Nitrate Urine Bilirubin Urine Urobilinogen Ur Leukocyte Esterase Urine RBC Urine WBC Ur Squamous Epith Cells Urine Bacteria Hyaline Casts Urine Mucus Micro UA Comment Ur Microscopic Review Urine Culture Comments 09/14/18 09/14/18 09/14/18 16:20 17:00 20:30 WBC RBC Hgb Hct MCV MCH MCHC RDW Plt Count MPV Prelim Diff (Auto) Neut % (Auto) Lymph % (Auto) [place] % (Auto) Eos % (Auto) Baso % (Auto) Neut # (Auto) Lymph # (Auto) [place] # (Auto) Eos # (Auto) Baso # (Auto) WBC Differential Diff Scan Differential Comment PT INR Sodium 137 Potassium 6.0 H 5.1 D Chloride 108 H Carbon Dioxide 21.2 Anion Gap 8 BUN 31 H Creatinine 1.91 H Estimated GFR 41 L Random Glucose 138 H Calcium 8.8 Magnesium Iron TIBC % Saturation Ferritin Total Bilirubin AST ALT Alkaline Phosphatase Total Creatine Kinase Troponin I Total Protein Albumin Urine Color Yellow Urine Clarity Clear Urine pH 5.0 Ur Specific [place] 1.012 Urine Protein Negative Urine Glucose (UA) Negative Urine Ketones Negative Urine Occult Blood Negative Urine Nitrate Negative Urine Bilirubin Negative Urine Urobilinogen 4 or greater Ur Leukocyte Esterase Negative Urine RBC Less than 1 Urine WBC 2 Ur Squamous Epith Cells 1 Urine Bacteria Rare H Hyaline Casts 46 Urine Mucus Few H Micro UA Comment Culture not ind Ur Microscopic Review Not Reportable Urine Culture Comments Culture not ind 09/15/18 09/15/18 06:45 06:45 WBC 6.3 RBC 2.48 L Hgb 9.5 L Hct 28.1 L MCV 113.1 H MCH 38.2 H MCHC 33.8 RDW 14.0 Plt Count 60 L D MPV 9.0 Prelim Diff (Auto) Slide review pending Neut % (Auto) 58.0 Lymph % (Auto) 21.6 [place] % (Auto) 14.3 H Eos % (Auto) 5.4 H Baso % (Auto) 0.7 Neut # (Auto) 3.6 Lymph # (Auto) 1.4 [place] # (Auto) 0.9 Eos # (Auto) 0.3 Baso # (Auto) 0.0 WBC Differential . Diff Scan Auto diff confirmed Differential Comment . PT INR Sodium 141 Potassium 4.5 Chloride 112 H Carbon Dioxide 21.2 Anion Gap 8 BUN 30 H Creatinine 1.57 H Estimated GFR 52 L Random Glucose 87 Calcium 8.7 Magnesium Iron 120 TIBC 125 L % Saturation 96.3 H Ferritin 640 H Total Bilirubin AST ALT Alkaline Phosphatase Total Creatine Kinase Troponin I Total Protein Albumin Urine Color Urine Clarity Urine pH Ur Specific [place] Urine Protein Urine Glucose (UA) Urine Ketones Urine Occult Blood Urine Nitrate Urine Bilirubin Urine Urobilinogen Ur Leukocyte Esterase Urine RBC Urine WBC Ur Squamous Epith Cells Urine Bacteria Hyaline Casts Urine Mucus Micro UA Comment Ur Microscopic Review Urine Culture Comments Microbiology 09/15/18 02:11 Stool Stool Occult Blood (LIYA) - Final Hemoccult negative - Imaging Impressions Abdomen/Bladder Ultrasound 09/14/18 00:00 CONCLUSION: 1. Negative renal sonogram. Chest X-Ray 09/14/18 15:03 CONCLUSION: No acute cardiopulmonary findings stable compared to previous dated 08/18/2018. Head CT 09/14/18 15:03 CONCLUSION: 1. Cerebral atrophy. 2. Mild periventricular and subcortical white matter small vessel ischemic changes bilaterally. 3. No acute hemorrhage, acute infarct, mass effect or extra-axial fluid collections. . Knee X-Ray 09/14/18 15:10 CONCLUSION: 1. 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 2. No acute fracture or dislocation. Shoulder X-Ray 09/14/18 15:10 CONCLUSION: 1. Mild degenerative changes involving the left glenohumeral and acromioclavicular joints. 2. No acute fracture or dislocation. Assessment and Plan - Plan Altered mental status Likely secondary to metabolic encephalopathy from elevated BUN. Head CT negative for acute process. -improved. Hyperkalemia Potassium 6.6. Status post Kayexalate, calcium gluconate and IV fluid hydration. -Monitor BMP. Improved. Acute renal failure Cr 2.29, was 1.3 on 08/20/18. Renal ultrasound negative. -Gentle IV fluid hydration. Improving. -Holding Lasix, Aldactone and ARB. Gait instability Family states pt has had a more unsteady gait. -Continue home Sinemet. -PT eval. -F/u with Neurology as outpatient. -Continue Plavix per neurology recommendation from previous hospitalization. Hypertension Well controlled. Holding ARB, Lasix and Aldactone. -Clonidine as needed. Anemia Hemoglobin 9.8, baseline 12. -Continue home iron. -Monitor CBC. -check B12 and folate levels. -check Hemoccult. PPx: Heparin
[2018-09-15 15:06] LABS: Folate 8.3 ng/mL (3.1-17.5)
[2018-09-15] MEDS: Latanoprost 0.005% Opth Drops 2.5 ML Bottle EACH EYE SCH (20:46)
[2018-09-16 07:33] VITALS: RESP 17
[2018-09-16] MEDS: FLUoxetine 20 MG Capsule PO SCH (09:15)
[2018-09-16] MEDS: Ferrous Sulfate 325 MG Tablet PO SCH ×2 (09:15→13:13)
[2018-09-16 10:25] LABS: Hematocrit 28.2 % (39.0-51.0); Hemoglobin 9.7 gm/dL (13.0-17.0); Mean Corpuscular HGB Conc 34.6 % (32.0-36.0); Mean Corpuscular Hemoglobin 38.8 pg (27.0-34.0); Mean Corpuscular Volume 112.2 fL (80.0-100.0); Mean Platelet Volume 9.3 fL (7.0-11.0); Platelet Count 67 th/mm3 (150-450); Red Blood Count 2.51 mil/mm3 (4.50-5.90); Red Cell Distribution Width 14.2 % (11.6-17.2); White Blood Count 5.7 th/mm3 (4.0-11.0)
[2018-09-16 10:34] LABS: Calcium 8.9 mg/dL (8.5-10.1); Carbon Dioxide 19.2 meq/L (21.0-32.0); Magnesium 1.7 mg/dL (1.5-2.5); Potassium 4.3 meq/L (3.5-5.1)
[2018-09-16] MEDS: Heparin - SQ 10,000 UNITS/ML Vial SQ SCH (11:33)
[2018-09-16 13:08] VITALS: BP 139/68; TEMP 98; O2SAT 93
--- NOTE | 2018-09-16 14:48 | P.PNIM ---
Subjective Interval history: The patient was resting comfortably in bed. He was hoping to go home soon. He had no acute complaints. Discussed with his son over the phone. Discussed with case management. Physical Exam Vital signs: Vital Signs 09/15/18 15:00 09/15/18 15:29 09/15/18 16:00 Temperature 98.2 F Pulse Rate 68 80 79 Respiratory Rate 18 Blood Pressure 116/50 L Pulse Oximetry 93 L 09/15/18 17:00 09/15/18 18:00 09/15/18 19:00 Temperature Pulse Rate 64 78 72 Respiratory Rate Blood Pressure Pulse Oximetry 09/15/18 20:00 09/15/18 21:00 09/15/18 22:00 Temperature 98.4 F Pulse Rate 72 69 72 Respiratory Rate 16 Blood Pressure 137/69 Pulse Oximetry 93 L 09/15/18 23:00 09/16/18 00:00 09/16/18 01:00 Temperature 98.2 F Pulse Rate 73 73 77 Respiratory Rate 18 Blood Pressure 131/67 Pulse Oximetry 97 09/16/18 02:00 09/16/18 03:00 09/16/18 04:00 Temperature 98.5 F Pulse Rate 76 71 73 Respiratory Rate 16 Blood Pressure 130/62 Pulse Oximetry 98 09/16/18 05:00 09/16/18 06:00 09/16/18 07:00 Temperature Pulse Rate 68 74 71 Respiratory Rate Blood Pressure Pulse Oximetry 09/16/18 07:31 09/16/18 08:00 09/16/18 09:00 Temperature 97.8 F Pulse Rate 73 72 82 Respiratory Rate 17 Blood Pressure 138/70 Pulse Oximetry 97 09/16/18 10:00 09/16/18 11:00 09/16/18 11:40 Temperature Pulse Rate 70 74 Respiratory Rate Blood Pressure Pulse Oximetry 96 09/16/18 12:00 09/16/18 13:00 Temperature 98 F Pulse Rate 72 76 Respiratory Rate 17 Blood Pressure 139/68 Pulse Oximetry 93 L Intake & Output 09/15/18 09/16/18 09/16/18 18:59 06:59 18:59 Intake Total 2100 / 2100 480 / 480 Output Total 400 / 400 500 / 500 Balance 1700 / 1700 -20 / -20 Weight 80.1 kg Intake: IV 900 / 900 NS Inj 1,000 ML @ 50 mls/hr IV. 900 / 900 CONT .Q20H [facility] Rx#:[id number] Oral 1200 / 1200 480 / 480 Output: Urine 400 / 400 500 / 500 Other: # Voids 3 2 Date of Last Bowel Movement 09/15/18 09/16/18 09/16/18 # Bowel Movements 2 2 Narrative: Gen: No acute distress Head: Normocephalic. Atraumatic. EENT: Pupils equal round and reactive to light. Nose without drainage. Airway intact. Throat without injection. Cardiovascular: Regular rate and rhythm. No murmurs, rubs or gallops. Respiratory: Lungs clear to auscultation bilaterally. No wheezes or rhonchi. Abdomen: Soft, nontender, nondistended. No peritoneal signs. Musculoskeletal: No gross deformities. No edema. Skin: No obvious rashes or erythema. Neuro: Sensory intact and equal bilaterally. Cranial nerves II through XII intact. Alert and oriented x3. Normal speech. Strength 5/5 throughout. Results - Labs CBC & Chem 7: 09/16/18 09:49 09/16/18 09:49 Laboratory Results - last 24 hr 09/15/18 09/16/18 09/16/18 06:45 09:49 09:49 WBC 5.7 RBC 2.51 L Hgb 9.7 L Hct 28.2 L MCV 112.2 H MCH 38.8 H MCHC 34.6 RDW 14.2 Plt Count 67 L MPV 9.3 Sodium 137 Potassium 4.3 Chloride 109 H Carbon Dioxide 19.2 L Anion Gap 9 BUN 20 H Creatinine 1.26 Estimated GFR 67 L Random Glucose 193 H D Calcium 8.9 Magnesium 1.7 Vitamin B12 1265 H Folate 8.3 Microbiology 09/15/18 14:47 Stool Stool Occult Blood (LIYA) - Final Hemoccult negative 09/15/18 02:11 Stool Stool Occult Blood (LIYA) - Final Hemoccult negative Assessment and Plan - Plan Altered mental status Likely secondary to metabolic encephalopathy from elevated BUN. Head CT negative for acute process. -improved. Hyperkalemia Potassium 6.6. Status post Kayexalate, calcium gluconate and IV fluid hydration. -Monitor BMP. Improved. -d/c ARB. Acute renal failure Cr 2.29, was 1.3 on 08/20/18. Renal ultrasound negative. Resolved. -Gentle IV fluid hydration. Improving. -Holding Lasix, Aldactone and ARB. Gait instability Family states pt has had a more unsteady gait. -Continue home Sinemet. -PT eval. -F/u with Neurology as outpatient as scheduled. -Continue Plavix per neurology recommendation from previous hospitalization. Hypertension Well controlled. -Holding ARB, Lasix and Aldactone. -Clonidine as needed. Anemia Hemoglobin 9.8, baseline 12. Hemoccult negative. Iron studies noted. -Continue home iron. -Monitor CBC. -follow up with PCP. PPx: Heparin Discharge Planning: D/c to [facility] with PT/OT
[2018-09-16 16:45] VITALS: PULSE 75
== END 2018-09-16 17:24 ==
LOC: NEPC 14:43 → NEDA 17:35 → INTOOBSV 17:35 → HCIS 19:26
PROVIDERS: ADMIT Hospitalist; ATTEND Hospitalist

== ENCOUNTER 2018-09-25 10:51 | Inpatient (IN) ==
[2018-09-25] MEDS ORDERED: Sod Chloride 0.9% Inj 1,000 ML IV.SIG ONE (11:17)
--- NOTE | 2018-09-25 11:34 | ED ---
HPI General Chief complaint: GI Bleed Stated complaint: Medical Time Seen by Provider: 09/25/18 11:01 Source: patient Mode of arrival: EMS Limitations: no limitations History of Present Illness HPI Narrative: 78-year-old male with PMH of TIA, CHF, HTN presents the ED from his [facility] for evaluation of dark stools times 24 hours. The patient states that he had a little GI upset after eating some velázquez with 1 or 2 episodes of nonbloody vomiting last night. He states that since then he has had several very dark stools. He denies abdominal pain, nausea, diarrhea. He denies dizziness, shortness of breath, palpitations. He states his last colonoscopy was approximately 4 years ago. He endorses history of appendectomy. He denies using Pepto-Bismol for treatment. He does not take blood thinners. No treatment attempted before arrival. Related Data Home Medications Medication Instructions Recorded Confirmed ferrous sulfate 325 mg PO TID 08/18/18 09/25/18 fluoxetine 20 mg PO DAILY 08/18/18 09/25/18 latanoprost 1 drp OPHTHALMIC (EYE) QPM 08/18/18 09/25/18 Allergies Allergy/AdvReac Type Severity Reaction Status Date / Time No Known Allergies Allergy Verified 09/14/18 14:49 Review of Systems ROS: all other systems reviewed are negative PMFSH Medical History Medical History Congestive heart failure (Acute) Glaucoma (Acute) Hypertension (Acute) Surgical History Surgical History History of appendectomy (Acute) Status post repair of hydrocele (Acute) Family History Family History Other Coronary artery disease Diabetes mellitus Social History Social History Substance History: No History of Abuse Second Hand Smoke Exposure: No Smoking Status: Never smoker How Often Do You Have a Drink Containing Alcohol: Never Recent Travel in [place] within the Last 8 Weeks: No Recent Out of Country Travel within the Last 8 Weeks: No Immunization History Tetanus Immunization: Unsure Exam Narrative Exam Narrative: GENERAL: Well nourished, well developed AA male in NAD. SKIN: Focused skin assessment warm/dry. HEAD: Atraumatic. Normocephalic. EYES: Pupils equal and round. No scleral icterus. No injection or drainage. ENT: No nasal bleeding or discharge. Mucous membranes pink and moist. NECK: Trachea midline. No JVD. CARDIOVASCULAR: Regular rate and rhythm. No murmur appreciated. RESPIRATORY: No accessory muscle use. Clear to auscultation. Breath sounds equal bilaterally. GASTROINTESTINAL: Abdomen soft, non-tender, nondistended. Active bowel sounds. Hepatic and splenic margins not palpable. RECTAL EXAM: No masses or tenderness, stool is melanotic. Guaiac positive. MUSCULOSKELETAL: No obvious deformities. No clubbing. No cyanosis. No edema. NEUROLOGICAL: Awake and alert. No obvious cranial nerve deficits. Motor grossly within normal limits. Normal speech. PSYCHIATRIC: Appropriate mood and affect; insight and judgment normal. Course Initial Documented Vital Signs Temperature 98.1 F 09/25/18 11:05 Pulse Rate 82 09/25/18 11:05 Respiratory Rate 20 09/25/18 11:05 Blood Pressure 130/63 09/25/18 11:05 Pulse Oximetry 100 09/25/18 11:05 Last Documented Vital Signs Temperature 98.1 F 09/25/18 11:05 Pulse Rate 93 H 09/25/18 13:33 Respiratory Rate 20 09/25/18 13:33 Blood Pressure 130/63 09/25/18 11:12 Pulse Oximetry 99 09/25/18 13:33 Medical Decision Making MDM Narrative Medical decision making narrative: 78-year-old male with PMH of TIA, CHF, HTN presents the ED from his [facility] for evaluation of dark stools times 24 hours. He denies abdominal pain, nausea, diarrhea. He denies dizziness, shortness of breath, palpitations. He states his last colonoscopy was approximately 4 years ago. He endorses history of appendectomy. He denies using Pepto-Bismol for treatment. He does not take blood thinners. Afebrile, pulse 93, O2 sats 99% on room air on presentation. Physical exam reveals a pleasant -Indian male in no acute distress. Belly is soft, nontender. The patient has frankly melanotic stools. IV was established. He was administered 1 L normal saline. CBC: WBC 10.2. Hemoglobin 7.7--down from 9.7 since 09/16/18. INR 1.5. BUN 25. Creatinine 1.43. Chronic per chart review. Type and screen ordered. Consult placed with the on-call steel unloader. I spoke with Dr. Grullon who agrees to accept the patient to the medicine service. Please see medicine notes for disposition. Medical Screen Exam Complete: Yes Emergency Medical Condition: Yes Differential Diagnosis Differential Diagnosis: GI bleed versus anemia versus dehydration versus other Lab Data Result diagrams: 09/25/18 11:20 09/25/18 11:20 Lab Results 09/25/18 09/25/18 09/25/18 Range/Units 11:20 11:20 11:20 WBC 10.2 (4.0-11.0) th/mm3 RBC 1.98 L (4.50-5.90) mil/mm3 Hgb 7.7 L (13.0-17.0) gm/dL Hct 22.8 L (39.0-51.0) % MCV 115.1 H (80.0-100.0) fL MCH 38.9 H (27.0-34.0) pg MCHC 33.8 (32.0-36.0) % RDW 15.4 (11.6-17.2) % Plt Count 92 L D (150-450) th/mm3 MPV 9.8 (7.0-11.0) fL Prelim Diff (Auto) Slide review pending Neut % (Auto) 74.7 H (16.0-70.0) % Lymph % (Auto) 17.4 (9.0-44.0) % [place] % (Auto) 5.0 (0.0-8.0) % Eos % (Auto) 2.0 (0.0-4.0) % Baso % (Auto) 0.9 (0.0-2.0) % Neut # (Auto) 7.6 (1.8-7.7) th/mm3 Lymph # (Auto) 1.8 (1.0-4.8) th/mm3 [place] # (Auto) 0.5 (0.0-0.9) th/mm3 Eos # (Auto) 0.2 (0.0-0.4) th/mm3 Baso # (Auto) 0.1 (0.0-0.2) th/mm3 WBC Differential Manual diff final Seg Neuts % (Manual) 81 H (16-70) % Band Neuts % (Manual) 3 (0-6) % Lymphocytes % (Manual) 11 (9-44) % Monocytes % (Manual) 3 (0-8) % Eosinophils % (Manual) 1 (0-4) % Metamyelocytes % (Man) 1 (0-1) % Abs Neuts (Manual) 8.7 H (1.8-7.7) th/mm3 Nucleated RBCs/100 WBC 1 H (0-0) /100 WBC Differential Comment . Toxic Vacuolation Present H (None) Platelet Estimate Low L (Normal) Platelet Morphology Normal (Normal) PT 15.0 H (9.8-11.6) sec INR 1.5 Ratio APTT 36.9 H (23.4-31.7) sec Sodium 140 (136-145) meq/L Potassium 4.9 (3.5-5.1) meq/L Chloride 113 H (98-107) meq/L Carbon Dioxide 19.3 L (21.0-32.0) meq/L Anion Gap 8 (5-15) meq/L BUN 25 H (7-18) mg/dL Creatinine 1.43 H (0.60-1.30) mg/dL Estimated GFR 58 L (>89) mL/min Random Glucose 199 H (74-106) mg/dL Calcium 8.3 L (8.5-10.1) mg/dL Total Bilirubin 2.1 H (0.2-1.0) mg/dL AST 61 H (15-37) U/L ALT 13 (12-78) U/L Alkaline Phosphatase 171 H (45-117) U/L Total Protein 6.2 L (6.4-8.2) g/dL Albumin 2.0 L (3.4-5.0) g/dL Blood Type Blood Type Recheck Antibody Screen 09/25/18 Range/Units 11:20 WBC (4.0-11.0) th/mm3 RBC (4.50-5.90) mil/mm3 Hgb (13.0-17.0) gm/dL Hct (39.0-51.0) % MCV (80.0-100.0) fL MCH (27.0-34.0) pg MCHC (32.0-36.0) % RDW (11.6-17.2) % Plt Count (150-450) th/mm3 MPV (7.0-11.0) fL Prelim Diff (Auto) Neut % (Auto) (16.0-70.0) % Lymph % (Auto) (9.0-44.0) % [place] % (Auto) (0.0-8.0) % Eos % (Auto) (0.0-4.0) % Baso % (Auto) (0.0-2.0) % Neut # (Auto) (1.8-7.7) th/mm3 Lymph # (Auto) (1.0-4.8) th/mm3 [place] # (Auto) (0.0-0.9) th/mm3 Eos # (Auto) (0.0-0.4) th/mm3 Baso # (Auto) (0.0-0.2) th/mm3 WBC Differential Seg Neuts % (Manual) (16-70) % Band Neuts % (Manual) (0-6) % Lymphocytes % (Manual) (9-44) % Monocytes % (Manual) (0-8) % Eosinophils % (Manual) (0-4) % Metamyelocytes % (Man) (0-1) % Abs Neuts (Manual) (1.8-7.7) th/mm3 Nucleated RBCs/100 WBC (0-0) /100 WBC Differential Comment Toxic Vacuolation (None) Platelet Estimate (Normal) Platelet Morphology (Normal) PT (9.8-11.6) sec INR Ratio APTT (23.4-31.7) sec Sodium (136-145) meq/L Potassium (3.5-5.1) meq/L Chloride (98-107) meq/L Carbon Dioxide (21.0-32.0) meq/L Anion Gap (5-15) meq/L BUN (7-18) mg/dL Creatinine (0.60-1.30) mg/dL Estimated GFR (>89) mL/min Random Glucose (74-106) mg/dL Calcium (8.5-10.1) mg/dL Total Bilirubin (0.2-1.0) mg/dL AST (15-37) U/L ALT (12-78) U/L Alkaline Phosphatase (45-117) U/L Total Protein (6.4-8.2) g/dL Albumin (3.4-5.0) g/dL Blood Type B Positive Blood Type Recheck Required Antibody Screen Negative Discharge Plan Discharge Disposition Patient Disposition: 30 Still Patient Physicians Team ED Provider: Demetrio Aguirre ED Midlevel Provider: Dolly Finnegan Primary Care Provider: UNKNOWN, Attending Provider: Osmany Grullon Other Providers: Diana Serrano Discharge Interventions Interventions: Vital Signs Last Done: 09/25/18 11:12 Status ED Status: Admitted Observation Patient
[2018-09-25 11:42] LABS: Baso # (Auto) 0.1 th/mm3 (0.0-0.2); Baso % (Auto) 0.9 % (0.0-2.0); Eos # (Auto) 0.2 th/mm3 (0.0-0.4); Hematocrit 22.8 % (39.0-51.0); Hemoglobin 7.7 gm/dL (13.0-17.0); Lymph # (Auto) 1.8 th/mm3 (1.0-4.8); Lymph % (Auto) 17.4 % (9.0-44.0); Mean Corpuscular HGB Conc 33.8 % (32.0-36.0); Mean Corpuscular Hemoglobin 38.9 pg (27.0-34.0); Mean Corpuscular Volume 115.1 fL (80.0-100.0); Mean Platelet Volume 9.8 fL (7.0-11.0); Mono # (Auto) 0.5 th/mm3 (0.0-0.9); Neut # (Auto) 7.6 th/mm3 (1.8-7.7); Neut % (Auto) 74.7 % (16.0-70.0); Platelet Count 92 th/mm3 (150-450); Red Blood Count 1.98 mil/mm3 (4.50-5.90); Red Cell Distribution Width 15.4 % (11.6-17.2); White Blood Count 10.2 th/mm3 (4.0-11.0)
[2018-09-25 11:50] LABS: Activated Partial Thrombo Time 36.9 sec (23.4-31.7); INR 1.5 Ratio
[2018-09-25 11:54] LABS: Alanine Aminotransferase 13 U/L (12-78); Anion Gap 8 meq/L (5-15); Aspartate Aminotransferase 61 U/L (15-37); Blood Urea Nitrogen 25 mg/dL (7-18); Calcium 8.3 mg/dL (8.5-10.1); Carbon Dioxide 19.3 meq/L (21.0-32.0); Chloride 113 meq/L (98-107); Glomerular Filtration Rate 58 mL/min (>89); Glucose,Random 199 mg/dL (74-106); Potassium 4.9 meq/L (3.5-5.1); Sodium 140 meq/L (136-145)
[2018-09-25 11:57] LABS: Alkaline Phosphatase 171 U/L (45-117); Total Protein 6.2 g/dL (6.4-8.2)
[2018-09-25 12:22] LABS: Eosinophils 1 % (0-4); Lymphocytes 11 % (9-44); Metamyelocytes 1 % (0-1); Monocytes 3 % (0-8); Platelet Morphology Normal (Normal); Tallied Nucleated RBC 1 (0-0); Toxic Vacuolation Present
[2018-09-25] MEDS ORDERED: Acetaminophen 325 MG Tablet PO PRN (13:29)
[2018-09-25] MEDS ORDERED: Sodium Chlor 0.9% Inj 250 ML IV.SIG SCH (14:00)
--- NOTE | 2018-09-25 14:33 | P.HPIM ---
History of Present Illness Primary Care Physician: UNKNOWN History of Present Illness: Mr. Tomlin is a 78-year-old male. At baseline he has CHF, glaucoma, and hypertension. He lives in an [facility] and it was noted that he had dark stools for the past couple days. The patient has been feeling some fatigue but otherwise is asymptomatic. He is positive for blood in his stool upon testing. He has had GI bleeds before in the past and is not on any blood thinners. No other complaints today. No complete of abdominal pain. No shortness of breath. No fevers. Inpatient Certification: I certify that the inpatient services were ordered in accordance with Medicare regulations governing the order. This includes certification that hospital inpatient services are reasonable and necessary and in the case of services not specified as inpatient-only under 42 CFR 419.22(n), that they are appropriately provided as inpatient services in accordance to with the 2-midnight benchmark under 43 CFR 412.3(e) Estimated Total Length of Stay (Days): 3 Plans for Post Hospital Care: Home Review of Systems Constitutional: No fevers, no chills no night sweats, fatigue, no weakness Eyes: No eye pain, no blurry vision, no loss of vision ENT: No sore throat, no ear pain, no rhinorrhea Cardiovascular: No chest pain, no tachycardia, no palpitations, no syncope Respiratory: No wheezing, no cough, no shortness of breath Gastrointestinal: No abdominal pain, black tarry stools, no bright red blood per rectum, no vomiting, no diarrhea Musculoskeletal: No joint pain, no muscle cramps, no stiffness Integumentary: No rash, no ulcers, no drainage Neurologic: No sensory loss, no loss of motor function, no dizziness Psychiatric: No behavioral changes, no hallucinations, no suicidal ideations [facility] - History History Provided By: Patient - Medical History Medical History: Medical History (Last Reviewed 09/25/18 @ 11:32 by CAROL Shook) Congestive heart failure Glaucoma Hypertension - Surgical History Surgical History: Surgical History (Last Reviewed 09/25/18 @ 11:32 by CAROL Shook) History of appendectomy Status post repair of hydrocele - Family History Family History: Family History (Last Reviewed 09/25/18 @ 11:32 by CAROL Shook) Other Coronary artery disease Diabetes mellitus - Tobacco History Second Hand Smoke Exposure: No Smoking Status: Never smoker - Alcohol History How Often Do You Have a Drink Containing Alcohol: Never - Substance Use History Substance History: No History of Abuse - Travel History Recent Travel in the [place] Within the Last 8 Weeks: No Recent Travel Out of the Country Within the Last 8 Weeks: No - Immunization History Tetanus Immunization: Unsure Medications and Allergies Active Medications: Active Medications Acetaminophen (Tylenol) 650 mg PO Q4H PRN PRN Reason: Temp > 100.4 Al Hydroxide/Mg Hydroxide (Milk Of Magnvivian Liq) 30 ml PO Q12H PRN PRN Reason: Mild Constipation Furosemide (Lasix Inj) 20 mg IV.PUSH ONCE PRN PRN Reason: After 1st unit of blood Sodium Chloride (Ns Inj) 1,000 mls @ 80 mls/hr IV.CONT .[id number] ERICH Sodium Chloride (Ns Inj) 250 mls @ 15 mls/hr IV.SIG ONCE ERICH Stop: 09/26/18 06:39 Ondansetron HCl (Zofran Inj) 4 mg IV.PUSH Q6H PRN PRN Reason: NAUSEA OR VOMITING Sodium Chloride (Ns Flush) 2 ml IV.FLUSH PRN PRN PRN Reason: FLUSH AFTER USING IV ACCESS Allergies Allergy/AdvReac Type Severity Reaction Status Date / Time No Known Allergies Allergy Verified 09/14/18 14:49 Home Medications Medication Instructions Recorded Confirmed Type ferrous sulfate 325 mg PO TID 08/18/18 09/25/18 History fluoxetine 20 mg PO DAILY 08/18/18 09/25/18 History latanoprost 1 drp OPHTHALMIC (EYE) QPM 08/18/18 09/25/18 History Exam Vital signs: Vital Signs 09/25/18 11:05 09/25/18 11:12 09/25/18 11:52 Temperature 98.1 F Pulse Rate 82 82 79 Respiratory Rate 20 20 Blood Pressure 130/63 130/63 Pulse Oximetry 100 100 100 09/25/18 13:33 Temperature Pulse Rate 93 H Respiratory Rate 20 Blood Pressure Pulse Oximetry 99 Intake & Output 09/24/18 09/25/18 09/25/18 18:59 06:59 18:59 Weight 86.183 kg Narrative: GENERAL: NAD, A&Ox3 HEAD: Normocephalic. NECK: Supple, trachea midline. No lymphadenopathy. EYES: No scleral icterus. No injection or drainage. CARDIOVASCULAR: Regular rate and rhythm without murmurs, gallops, or rubs. RESPIRATORY: Breath sounds equal bilaterally. No accessory muscle use. GASTROINTESTINAL: Abdomen soft, non-tender, nondistended. MUSCULOSKELETAL: No cyanosis, or edema. SKIN: Warm and dry. NEURO: No focal neurological deficits. Results - Labs CBC & Chem 7: 09/25/18 11:20 09/25/18 11:20 Labs: Short CBC 09/25/18 Range/Units 11:20 WBC 10.2 (4.0-11.0) th/mm3 Hgb 7.7 L (13.0-17.0) gm/dL Hct 22.8 L (39.0-51.0) % Plt Count 92 L D (150-450) th/mm3 BMP 09/25/18 11:20 Sodium 140 Potassium 4.9 Chloride 113 H Carbon Dioxide 19.3 L BUN 25 H Creatinine 1.43 H Calcium 8.3 L Liver Function 09/25/18 Range/Units 11:20 Total Bilirubin 2.1 H (0.2-1.0) mg/dL AST 61 H (15-37) U/L ALT 13 (12-78) U/L Alkaline Phosphatase 171 H (45-117) U/L Albumin 2.0 L (3.4-5.0) g/dL Caprini VTE Risk Assessment Caprini VTE Risk Assessment: No/Low Risk (score <= 1) Caprini Risk Assessment Model: Point Value = 1 Point Value = 2 Point Value = 3 Point Value = 5 Age 41-60 Minor surgery BMI > 25 kg/m2 Swollen legs Varicose veins or History of unexplained or recurrent spontaneous Oral contraceptives or hormone replacement Sepsis (< 1 month) Serious lung disease, including pneumonia (< 1 month) Abnormal pulmonary function Acute myocardial infarction Congestive heart failure (< 1 month) History of inflammatory bowel disease Medical patient at bed rest Age 61-74 Arthroscopic surgery Major open surgery (> 45 min) Laparoscopic surgery (> 45 min) Malignancy Confined to bed (> 72 hours) Immobilizing plaster cast Central venous access Age >= 75 History of VTE Family history of VTE Factor V Leiden Prothrombin [id number] Lupus anticoagulant Anticardiolipin antibodies Elevated serum homocysteine Heparin-induced thrombocytopenia Other congenital or acquired thrombophilia Stroke (< 1 month) Elective arthroplasty Hip, pelvis, or leg fracture Acute spinal cord injury (< 1 month) Prophylaxis Regimen: Total Risk Factor Score Risk Level Prophylaxis Regimen 0-1 Low Early ambulation 2 Moderate Order ONE of the following: *Sequential Compression Device (SCD) *Heparin 5000 units SQ BID 3-4 Higher Order ONE of the following medications: *Heparin 5000 units SQ TID *Enoxaparin/Lovenox 40 mg SQ daily (WT < 150 kg, CrCl > 30 mL/min) *Enoxaparin/Lovenox 30 mg SQ daily (WT < 150 kg, CrCl > 10-29 mL/min) *Enoxaparin/Lovenox 30 mg SQ BID (WT < 150 kg, CrCl > 30 mL/min) AND/OR *Sequential Compression Device (SCD) 5 or more Highest Order ONE of the following medications: *Heparin 5000 units SQ TID (Preferred with Epidurals) *Enoxaparin/Lovenox 40 mg SQ daily (WT < 150 kg, CrCl > 30 mL/min) *Enoxaparin/Lovenox 30 mg SQ daily (WT < 150 kg, CrCl > 10-29 mL/min) *Enoxaparin/Lovenox 30 mg SQ BID (WT < 150 kg, CrCl > 30 mL/min) AND *Sequential Compression Device (SCD) Assessment and Plan - Plan 78-year-old male admitted secondary to GI bleed Acute GI bleed Melena Past history of GI bleed Acute blood loss anemia Hemoglobin is currently at 7.7 Due to active bleed transfusion of 2 units packed red blood cells to be provided at this point Follow CBC Glaucoma Continue baseline eyedrops Follow clinically Hypertension Continue baseline treatment Follow blood pressures Adjust treatments as needed PRN IV Enalapril History of congestive heart failure This appears to be mild as patient is asymptomatic without any baseline treatment Cardiac diet once diet resumed Caution with IV hydration DVT prophylaxis SCDs
--- NOTE | 2018-09-25 16:26 | P.CONGI ---
History of Present Illness Consult date: 09/25/18 Consult reason: GI bleed Chief complaint: GI Bleed, Anemia History of Present Illness: This patient is a 78-year-old male with past medical history of TIA, CHF, hypertension and glaucoma. Surgical history includes appendectomy as a child. Patient presented to the emergency room at [facility] from his assisted living facility with report of dark stools for the last 24 hours. Patient reports that he has had nausea and vomiting x2 episodes nonbloody vomiting, after eating a sandwich with a velázquez last night. He endorses continued very dark brown to black tarry stools after that point. Patient denies abdominal pain, or diarrhea. He reports intermittent nausea without vomiting. Patient denies any dizziness, shortness of breath or lightheadedness. Upon consultation, patient endorses having dark tarry stools with bright red blood noted onset last evening. Patient denies any abdominal pain, reports some nausea without any further vomiting. Patient states that last evening he experienced increased belching with epigastric burning. Patient states he has never had an EGD in the past but does endorse having a colonoscopy greater than 30 years ago where benign polyps were found per his recollection. Patient denies heartburn or difficulty swallowing. Of note, patient son reports that he was recently admitted in August 2018 for diagnosis of dehydration. His son reports that when patient was released he was given a prescription for Plavix 75 mg p.o. daily (last dose a few days ago per son). During a neurology appointment earlier this week, patient was instructed not to take Plavix any further. According to his son, patient has also been taking aspirin which he believes is full strength at 325 mg p.o. daily. Patient denies any use of NSAIDs such as ibuprofen on a consistent basis. Patient denies any use of tobacco or alcohol products. <Vivienne Atkins - Last Filed: 09/25/18 16:07> Review of Systems All other systems reviewed negative except as stated in HPI <Vivienne Atkins - Last Filed: 09/25/18 16:07> PMFSH - History History Provided By: Patient - Medical History Medical History: Medical History (Last Reviewed 09/25/18 @ 11:32 by CAROL Shook) Congestive heart failure Glaucoma Hypertension - Surgical History Surgical History: Surgical History (Last Reviewed 11/24/18 @ 11:32 by CAROL Shook) History of appendectomy Status post repair of hydrocele - Family History Family History: Family History (Last Reviewed 09/25/18 @ 11:32 by CAROL Shook) Other Coronary artery disease Diabetes mellitus - Tobacco History Second Hand Smoke Exposure: No Smoking Status: Never smoker - Alcohol History How Often Do You Have a Drink Containing Alcohol: Never - Substance Use History Substance History: No History of Abuse - Travel History Recent Travel in the [place] Within the Last 8 Weeks: No Recent Travel Out of the Country Within the Last 8 Weeks: No - Immunization History Tetanus Immunization: Unsure <Vivienne Atkins - Last Filed: 09/25/18 16:07> - Medical History Medical History: Medical History (Last Reviewed 09/25/18 @ 11:32 by CAROL Shook) Congestive heart failure Glaucoma Hypertension - Surgical History Surgical History: Surgical History (Last Reviewed 09/25/18 @ 11:32 by CAROL Shook) History of appendectomy Status post repair of hydrocele - Family History Family History: Family History (Last Reviewed 09/25/18 @ 11:32 by CAROL Shook) Other Coronary artery disease Diabetes mellitus <Diana Serrano - Last Filed: 09/26/18 13:02> Medications and Allergies Active Medications: Active Medications Acetaminophen (Tylenol) 650 mg PO Q4H PRN PRN Reason: Temp > 100.4 Al Hydroxide/Mg Hydroxide (Milk Of Christopher Zhao) 30 ml PO Q12H PRN PRN Reason: Mild Constipation Enalaprilat (Vasotec Inj) 1.25 mg IV.PUSH Q6H PRN PRN Reason: SBP>160, DBP>90 Ferrous Sulfate (Ferosul) 325 mg PO TID ERICH Fluoxetine HCl (Prozac) 20 mg PO DAILY ERICH Furosemide (Lasix Inj) 20 mg IV.PUSH ONCE PRN PRN Reason: After 1st unit of blood Sodium Chloride (Ns Inj) 1,000 mls @ 50 mls/hr IV.CONT .Q20H ERICH Sodium Chloride (Ns Inj) 250 mls @ 15 mls/hr IV.SIG ONCE ERICH Stop: 09/26/18 06:39 Latanoprost (Xalatan 0.005% Opth Drops) 1 drop EACH EYE QPM ERICH Ondansetron HCl (Zofran Inj) 4 mg IV.PUSH Q6H PRN PRN Reason: NAUSEA OR VOMITING Sodium Chloride (Ns Flush) 2 ml IV.FLUSH PRN PRN PRN Reason: FLUSH AFTER USING IV ACCESS <Vivienne Atkins - Last Filed: 09/25/18 16:07> Active Medications: Active Medications Acetaminophen (Tylenol) 650 mg PO Q4H PRN PRN Reason: Temp > 100.4 Al Hydroxide/Mg Hydroxide (Milk Of Magnesia Liq) 30 ml PO Q12H PRN PRN Reason: Mild Constipation Enalaprilat (Vasotec Inj) 1.25 mg IV.PUSH Q6H PRN PRN Reason: SBP>160, DBP>90 Ferrous Sulfate (Ferosul) 325 mg PO TID [facility] Last Admin: 09/26/18 12:49 Dose: 325 mg Fluoxetine HCl (Prozac) 20 mg PO DAILY [facility] Last Admin: 09/26/18 08:26 Dose: 20 mg Furosemide (Lasix Inj) 20 mg IV.PUSH ONCE PRN PRN Reason: After 1st unit of blood Last Admin: 09/25/18 20:55 Dose: 20 mg Sodium Chloride (Ns Inj) 1,000 mls @ 50 mls/hr IV.CONT .Q20H [facility] Last Admin: 09/26/18 10:40 Dose: Not Given Latanoprost (Xalatan 0.005% Opth Drops) 1 drop EACH EYE QPM [facility] Last Admin: 09/25/18 18:32 Dose: Not Given Ondansetron HCl (Zofran Inj) 4 mg IV.PUSH Q6H PRN PRN Reason: NAUSEA OR VOMITING Pantoprazole Sodium (Protonix Inj) 40 mg IV.PUSH Q12H [facility] Last Admin: 09/26/18 04:40 Dose: 40 mg Polyethylene Glycol/Electrolytes (Colyte Liq) 4,000 ml PO ONCE ONE Stop: 09/26/18 16:01 Sodium Chloride (Ns Flush) 2 ml IV.FLUSH PRN PRN PRN Reason: FLUSH AFTER USING IV ACCESS <Diana Serrano - Last Filed: 09/26/18 13:02> Allergies Allergy/AdvReac Type Severity Reaction Status Date / Time No Known Allergies Allergy Verified 09/14/18 14:49 Home Medications Medication Instructions Recorded Confirmed Type ferrous sulfate 325 mg PO TID 08/18/18 09/25/18 History fluoxetine 20 mg PO DAILY 08/18/18 09/25/18 History latanoprost 1 drp OPHTHALMIC (EYE) QPM 08/18/18 09/25/18 History Exam Vital signs: Vital Signs 09/25/18 11:05 09/25/18 11:12 09/25/18 11:52 Temperature 98.1 F Pulse Rate 82 82 79 Respiratory Rate 20 20 Blood Pressure 130/63 130/63 Pulse Oximetry 100 100 100 09/25/18 13:33 Temperature Pulse Rate 93 H Respiratory Rate 20 Blood Pressure Pulse Oximetry 99 Intake & Output 09/24/18 09/25/18 09/25/18 18:59 06:59 18:59 Weight 86.183 kg - Constitutional no acute distress - Routine HEENT Exam Head: Present: normocephalic - Routine Neck Exam Present: supple - Routine Respiratory Exam Present: CTA bilaterally. Absent: accessory muscle use - Routine Cardiovascular Exam Present: RRR, S1, S2 - Routine Abdominal Exam Present: soft, normoactive bowel sounds. Absent: tenderness, distended, guarding, firm - Routine Extremities Exam Present: pulses intact. Absent: edema - Routine Skin Exam Present: dry, pallor, warm - Routine Neurological Exam Present: alert, oriented X3 - Routine Psychiatric Exam Present: normal affect, cooperative <AtkinsVivienne - Last Filed: 09/25/18 16:07> Vital signs: Vital Signs 09/25/18 13:33 09/25/18 16:35 09/25/18 16:49 Temperature 98.1 F 98 F Pulse Rate 93 H 77 77 Respiratory Rate 20 17 16 Blood Pressure 171/74 H 145/65 H Pulse Oximetry 99 96 99 09/25/18 17:06 09/25/18 20:00 09/25/18 21:20 Temperature 98.2 F 97.3 F L 97.3 F L Pulse Rate 78 85 85 Respiratory Rate 16 22 22 Blood Pressure 157/67 H 160/80 H 160/80 H Pulse Oximetry 100 97 97 09/26/18 00:00 09/26/18 01:35 09/26/18 08:00 Temperature 97.8 F 97.5 F L 98.2 F Pulse Rate 85 89 84 Respiratory Rate 20 20 15 Blood Pressure 127/62 144/65 H 119/60 Pulse Oximetry 99 97 Intake & Output 09/25/18 09/26/18 09/26/18 18:59 06:59 18:59 Intake Total 1000 / 1000 760 / 760 250 / 250 Output Total 175 / 175 1100 / 1100 Balance 825 / 825 -340 / -340 250 / 250 Weight 85.5 kg 80.8 kg Intake: IV 1000 / 1000 250 / 250 NS Inj 250 ML @ 15 mls/hr IV. 250 / 250 SIG ONCE ERICH Rx#:[id number] Intake (Blood Product) Amt 0 / 0 760 / 760 Rbc As-3 Leukoreduced Unit 0 / 0 400 / 400 [id number] Rbc As-3 Leukoreduced Unit 360 / 360 [id number] Output: Urine 175 / 175 1100 / 1100 Other: # Voids 1 1 # Bowel Movements 1 Weight On Admission 85.5 kg <Diana Serrano A - Last Filed: 09/26/18 13:02> Results - Labs CBC & Chem 7: 09/25/18 11:20 09/25/18 11:20 Labs: Laboratory Results - last 24 hr 09/25/18 09/25/18 09/25/18 11:20 11:20 11:20 WBC 10.2 RBC 1.98 L Hgb 7.7 L Hct 22.8 L MCV 115.1 H MCH 38.9 H MCHC 33.8 RDW 15.4 Plt Count 92 L D MPV 9.8 Prelim Diff (Auto) Slide review pending Neut % (Auto) 74.7 H Lymph % (Auto) 17.4 Shoshone % (Auto) 5.0 Eos % (Auto) 2.0 Baso % (Auto) 0.9 Neut # (Auto) 7.6 Lymph # (Auto) 1.8 Shoshone # (Auto) 0.5 Eos # (Auto) 0.2 Baso # (Auto) 0.1 WBC Differential Manual diff final Seg Neuts % (Manual) 81 H Band Neuts % (Manual) 3 Lymphocytes % (Manual) 11 Monocytes % (Manual) 3 Eosinophils % (Manual) 1 Metamyelocytes % (Man) 1 Abs Neuts (Manual) 8.7 H Nucleated RBCs/100 WBC 1 H Differential Comment . Toxic Vacuolation Present H Platelet Estimate Low L Platelet Morphology Normal PT 15.0 H INR 1.5 APTT 36.9 H Sodium 140 Potassium 4.9 Chloride 113 H Carbon Dioxide 19.3 L Anion Gap 8 BUN 25 H Creatinine 1.43 H Estimated GFR 58 L Random Glucose 199 H Calcium 8.3 L Total Bilirubin 2.1 H AST 61 H ALT 13 Alkaline Phosphatase 171 H Total Protein 6.2 L Albumin 2.0 L Blood Type Blood Type Recheck Antibody Screen MTS Gel Crossmatch 09/25/18 09/25/18 11:20 15:58 WBC RBC Hgb Hct MCV MCH MCHC RDW Plt Count MPV Prelim Diff (Auto) Neut % (Auto) Lymph % (Auto) Shoshone % (Auto) Eos % (Auto) Baso % (Auto) Neut # (Auto) Lymph # (Auto) Shoshone # (Auto) Eos # (Auto) Baso # (Auto) WBC Differential Seg Neuts % (Manual) Band Neuts % (Manual) Lymphocytes % (Manual) Monocytes % (Manual) Eosinophils % (Manual) Metamyelocytes % (Man) Abs Neuts (Manual) Nucleated RBCs/100 WBC Differential Comment Toxic Vacuolation Platelet Estimate Platelet Morphology PT INR APTT Sodium Potassium Chloride Carbon Dioxide Anion Gap BUN Creatinine Estimated GFR Random Glucose Calcium Total Bilirubin AST ALT Alkaline Phosphatase Total Protein Albumin Blood Type B Positive Blood Type Recheck Required Antibody Screen Negative MTS Gel Crossmatch See Detail <Vivienne Atkins - Last Filed: 09/25/18 16:07> - Labs CBC & Chem 7: 09/26/18 03:47 09/26/18 03:47 Labs: Laboratory Results - last 24 hr 09/25/18 09/26/18 09/26/18 15:58 03:47 03:47 WBC 13.0 H RBC 2.55 L Hgb 8.9 L Hct 25.8 L MCV 101.2 H D MCH 35.0 H MCHC 34.5 RDW 23.3 H D Plt Count 73 L MPV 9.0 Prelim Diff (Auto) Slide review pending Neut % (Auto) 60.5 Lymph % (Auto) 23.0 Shoshone % (Auto) 11.7 H Eos % (Auto) 4.4 H Baso % (Auto) 0.4 Neut # (Auto) 7.8 H Lymph # (Auto) 3.0 Shoshone # (Auto) 1.5 H Eos # (Auto) 0.6 H Baso # (Auto) 0.1 WBC Differential . Diff Scan Auto diff confirmed Differential Comment . Platelet Estimate Low L Platelet Morphology Enlarged H Acanthocytes (Spur) Occ H Keratocytes Occ H Sodium 147 H Potassium 3.8 D Chloride 117 H Carbon Dioxide 20.1 L Anion Gap 10 BUN 25 H Creatinine 1.40 H Estimated GFR 59 L Random Glucose 112 H Calcium 8.1 L Total Bilirubin 3.1 H AST 51 H ALT 26 Alkaline Phosphatase 129 H Total Protein 5.6 L D Albumin 2.1 L MTS Gel Crossmatch See Detail <Diana Serrano - Last Filed: 09/26/18 13:02> Assessment and Plan (1) Black tarry stools Status: Acute Code(s): K92.1 - Melena - Plan This patient is a 78-year-old male with past medical history of TIA, CHF, hypertension and glaucoma. Surgical history includes appendectomy as a child. Patient presented to the emergency room at [facility] from his assisted living facility with report of dark stools for the last 24 hours. Patient reports that he has had nausea and vomiting x2 episodes nonbloody vomiting, after eating a sandwich with a velázquez last night. He endorses continued very dark brown to black tarry stools after that point. Patient denies abdominal pain, or diarrhea. He reports intermittent nausea without vomiting. Patient denies any dizziness, shortness of breath or lightheadedness. Upon consultation, patient endorses having dark tarry stools with bright red blood noted onset last evening. Patient denies any abdominal pain, reports some nausea without any further vomiting. Patient states that last evening he experienced increased belching with epigastric burning. Patient states he has never had an EGD in the past but does endorse having a colonoscopy greater than 30 years ago where benign polyps were found per his recollection. Patient denies heartburn or difficulty swallowing. Of note, patient son reports that he was recently admitted in August 2018 for diagnosis of dehydration. His son reports that when patient was released he was given a prescription for Plavix 75 mg p.o. daily (last dose a few days ago). During a neurology appointment earlier this week, patient was instructed not to take Plavix any further. According to his son, patient has also been taking aspirin which he believes is full strength at 325 mg p.o. daily. Patient denies any use of NSAIDs such as ibuprofen on a consistent basis. Patient denies any use of tobacco or alcohol products. GI bleed with dark tarry stools Patient endorses multiple episodes of dark tarry stools the last 24 hours. States 2 episodes of nonbloody emesis and denies abdominal pain, dizziness or shortness of breath. Of note, patient was recently taking Plavix 75 mg p.o. daily-last dose a few days ago. Patient was also taking aspirin 325 mg p.o. daily for pain. 09/25/2018 hemoglobin 7.7 hematocrit 22.8 platelet count 92 INR 1.5 total bilirubin 2.1 AST 61 ALT 13 alk phos 171. Plan -Clear liquid diet -Obtain consent for EGD and Colonoscopy-likely Thursday due to patient's last dose of Plavix being sometime this week per his son -Monitor for bleeding -Monitor hemoglobin and hematocrit -PPI -Avoid NSAIDs or anticoagulants -Transfuse if needed -Supportive care -Further recommendations to follow This patient has been seen by myself and Dr. Serrano and this note is written on his behalf - Attending Attestation Dr. Serrano <Vivienne Atkins - Last Filed: 09/25/18 16:07> (1) Black tarry stools Status: Acute Code(s): K92.1 - Melena - Attending Attestation Seen with jose eduardo Kessler as above. Will plan EGD and Colonoscopy Thursday. Further recommendations to follow. Thank you. <Diana Serrano - Last Filed: 09/26/18 13:02>
[2018-09-25] MEDS: Latanoprost 0.005% Opth Drops 2.5 ML Bottle EACH EYE SCH (18:32)
[2018-09-25] MEDS: Ferrous Sulfate 325 MG Tablet PO SCH (18:37)
[2018-09-25] MEDS: Pantoprazole Inj 40 MG Vial IV.PUSH SCH (18:37)
[2018-09-26] MEDS: Pantoprazole Inj 40 MG Vial IV.PUSH SCH ×2 (04:40→16:53)
[2018-09-26 05:10] LABS: Baso # (Auto) 0.1 th/mm3 (0.0-0.2); Baso % (Auto) 0.4 % (0.0-2.0); Eos # (Auto) 0.6 th/mm3 (0.0-0.4); Eos % (Auto) 4.4 % (0.0-4.0); Hematocrit 25.8 % (39.0-51.0); Hemoglobin 8.9 gm/dL (13.0-17.0); Mean Corpuscular HGB Conc 34.5 % (32.0-36.0); Mean Corpuscular Volume 101.2 fL (80.0-100.0); Mono # (Auto) 1.5 th/mm3 (0.0-0.9); Mono % (Auto) 11.7 % (0.0-8.0); Neut # (Auto) 7.8 th/mm3 (1.8-7.7); Neut % (Auto) 60.5 % (16.0-70.0); Platelet Count 73 th/mm3 (150-450); Red Blood Count 2.55 mil/mm3 (4.50-5.90); Red Cell Distribution Width 23.3 % (11.6-17.2)
[2018-09-26 05:31] LABS: Alanine Aminotransferase 26 U/L (12-78); Albumin 2.1 g/dL (3.4-5.0); Alkaline Phosphatase 129 U/L (45-117); Anion Gap 10 meq/L (5-15); Aspartate Aminotransferase 51 U/L (15-37); Blood Urea Nitrogen 25 mg/dL (7-18); Calcium 8.1 mg/dL (8.5-10.1); Carbon Dioxide 20.1 meq/L (21.0-32.0); Chloride 117 meq/L (98-107); Glomerular Filtration Rate 59 mL/min (>89); Glucose,Random 112 mg/dL (74-106); Potassium 3.8 meq/L (3.5-5.1); Sodium 147 meq/L (136-145); Total Protein 5.6 g/dL (6.4-8.2)
[2018-09-26] MEDS: FLUoxetine 20 MG Capsule PO SCH (08:26)
[2018-09-26] MEDS: Ferrous Sulfate 325 MG Tablet PO SCH ×3 (08:26→17:51)
[2018-09-26 09:11] LABS: Acanthocytes Occ
[2018-09-26] MEDS: Sod Chloride 0.9% Inj 1,000 ML IV.CONT SCH ×2 (10:35→10:40)
--- NOTE | 2018-09-26 12:59 | P.PNIM ---
Subjective Interval history: 78yo m admitted with melena for a couple of days, found to have hgb 7.7, s/p prbc transfusion, seen by GI and schedule for endoscopy in am , pt seen and examined, doing better, states hes hungry denies pain, no sob, no dizziness, Physical Exam Vital signs: Last Vital Signs Temp 98.2 F 09/26/18 08:00 Pulse 84 09/26/18 08:00 Resp 15 09/26/18 08:00 BP 119/60 09/26/18 08:00 Pulse Ox 97 09/26/18 08:00 Intake & Output 09/24/18 09/25/18 09/26/18 09/27/18 06:59 06:59 06:59 06:59 Intake Total 1760 / 1760 250 / 250 Output Total 1275 / 1275 Balance 485 / 485 250 / 250 Weight 80.8 kg wdwn 78yo m aaox3 flat affect no distress pleasant heart s1s2 reg lungs clear no wrr , good air movment abd soft nondt pos bs no tenderess ext + 1 edema, no calf tenderness Results Labs CBC & Chem 7: 09/26/18 03:47 09/26/18 03:47 Assessment and Plan (1) Black tarry stools: Code(s): K92.1 - Melena Status: Acute Plan MELENA w hx GIB - s/p prbc, GI consult appreciated, monitorh ACUTE BLOOD LOSS ANEMIA due to gib HTN - cont bp control DIASTOLIC CHF CHRONIC compensated stable on ra - HX TIA - no ac due to gib GLAUCOMA cont home meds THROMBOCYTOPENIA chronic Progress Note: Quality VTE Deep Vein Thrombosis/Pulmonary Embolism Present on Admission: No
--- NOTE | 2018-09-26 14:19 | P.PNGI ---
Subjective Interval history: Patient sitting up at bedside eating clear liquid diet Denies any nausea or vomiting No BM yet today <Vivienne Atkins - Last Filed: 09/26/18 14:15> Physical Exam Vital signs: Vital Signs 09/25/18 16:35 09/25/18 16:49 09/25/18 17:06 Temperature 98.1 F 98 F 98.2 F Pulse Rate 77 77 78 Respiratory Rate 17 16 16 Blood Pressure 171/74 H 145/65 H 157/67 H Pulse Oximetry 96 99 100 09/25/18 20:00 09/25/18 21:20 09/26/18 00:00 Temperature 97.3 F L 97.3 F L 97.8 F Pulse Rate 85 85 85 Respiratory Rate 22 22 20 Blood Pressure 160/80 H 160/80 H 127/62 Pulse Oximetry 97 97 99 09/26/18 01:35 09/26/18 08:00 09/26/18 12:00 Temperature 97.5 F L 98.2 F 97.2 F L Pulse Rate 89 84 80 Respiratory Rate 20 15 16 Blood Pressure 144/65 H 119/60 134/62 Pulse Oximetry 97 99 Intake & Output 09/25/18 09/26/18 09/26/18 18:59 06:59 18:59 Intake Total 1000 / 1000 760 / 760 250 / 250 Output Total 175 / 175 1100 / 1100 Balance 825 / 825 -340 / -340 250 / 250 Weight 85.5 kg 80.8 kg Intake: IV 1000 / 1000 250 / 250 NS Inj 250 ML @ 15 mls/hr IV. 250 / 250 SIG ONCE ERICH Rx#:[id number] Intake (Blood Product) Amt 0 / 0 760 / 760 Rbc As-3 Leukoreduced Unit 0 / 0 400 / 400 [id number] Rbc As-3 Leukoreduced Unit 360 / 360 [id number] Output: Urine 175 / 175 1100 / 1100 Other: # Voids 1 1 # Bowel Movements 1 Weight On Admission 85.5 kg - Constitutional no acute distress - Routine HEENT Exam Head: Present: normocephalic - Routine Respiratory Exam Present: CTA bilaterally - Routine Cardiovascular Exam Present: RRR - Routine Abdominal Exam Present: soft, normoactive bowel sounds. Absent: tenderness, distended, guarding, firm - Routine Skin Exam Present: dry, warm - Routine Neurological Exam Present: alert - Routine Psychiatric Exam Present: normal affect, cooperative <Vivienne Atkins - Last Filed: 09/26/18 14:15> Vital signs: Vital Signs 09/26/18 12:00 09/26/18 16:00 09/26/18 17:41 Temperature 97.2 F L 98.0 F Pulse Rate 80 78 Respiratory Rate 16 18 Blood Pressure 134/62 166/74 H Pulse Oximetry 99 97 99 09/26/18 20:00 09/27/18 00:00 09/27/18 07:59 Temperature 98 F 98.4 F 98.1 F Pulse Rate 82 88 83 Respiratory Rate 22 20 17 Blood Pressure 166/72 H 146/65 H 130/61 Pulse Oximetry 97 100 99 Intake & Output 09/26/18 09/27/18 09/27/18 18:59 06:59 18:59 Intake Total 1830 / 1830 Output Total 700 / 700 Balance 1830 / 1830 -700 / -700 Weight 81.7 kg Intake: IV 250 / 250 NS Inj 250 ML @ 15 mls/hr IV. 250 / 250 SIG ONCE ERICH Rx#:[id number] Oral 1580 / 1580 Output: Urine 400 / 400 Stool 300 / 300 Other: # Voids 3 2 Date of Last Bowel Movement 09/26/18 # Bowel Movements 1 2 <Diana Serrano - Last Filed: 09/27/18 09:58> Results - Labs CBC & Chem 7: 09/26/18 03:47 09/26/18 03:47 Laboratory Results - last 24 hr 09/25/18 09/26/18 09/26/18 15:58 03:47 03:47 WBC 13.0 H RBC 2.55 L Hgb 8.9 L Hct 25.8 L MCV 101.2 H D MCH 35.0 H MCHC 34.5 RDW 23.3 H D Plt Count 73 L MPV 9.0 Prelim Diff (Auto) Slide review pending Neut % (Auto) 60.5 Lymph % (Auto) 23.0 Amelia % (Auto) 11.7 H Eos % (Auto) 4.4 H Baso % (Auto) 0.4 Neut # (Auto) 7.8 H Lymph # (Auto) 3.0 Amelia # (Auto) 1.5 H Eos # (Auto) 0.6 H Baso # (Auto) 0.1 WBC Differential . Diff Scan Auto diff confirmed Differential Comment . Platelet Estimate Low L Platelet Morphology Enlarged H Acanthocytes (Spur) Occ H Keratocytes Occ H Sodium 147 H Potassium 3.8 D Chloride 117 H Carbon Dioxide 20.1 L Anion Gap 10 BUN 25 H Creatinine 1.40 H Estimated GFR 59 L Random Glucose 112 H Calcium 8.1 L Total Bilirubin 3.1 H AST 51 H ALT 26 Alkaline Phosphatase 129 H Total Protein 5.6 L D Albumin 2.1 L MTS Gel Crossmatch See Detail <Vivienne Atkins - Last Filed: 09/26/18 14:15> - Labs CBC & Chem 7: 09/27/18 04:29 09/27/18 04:29 Laboratory Results - last 24 hr 09/27/18 09/27/18 04:29 04:29 WBC 10.2 RBC 2.32 L Hgb 8.3 L Hct 23.6 L MCV 101.6 H MCH 35.7 H MCHC 35.2 RDW 23.6 H Plt Count 68 L MPV 9.0 Prelim Diff (Auto) Slide review pending Neut % (Auto) 58.2 Lymph % (Auto) 24.9 Amelia % (Auto) 10.4 H Eos % (Auto) 6.1 H Baso % (Auto) 0.4 Neut # (Auto) 5.9 Lymph # (Auto) 2.5 Amelia # (Auto) 1.1 H Eos # (Auto) 0.6 H Baso # (Auto) 0.0 WBC Differential Manual diff final Seg Neuts % (Manual) 51 Band Neuts % (Manual) 2 Lymphocytes % (Manual) 33 Monocytes % (Manual) 6 Eosinophils % (Manual) 7 H Basophils % (Manual) 1 Abs Neuts (Manual) 5.4 Differential Comment . Platelet Estimate Low L Platelet Morphology Normal Sodium 147 H Potassium 3.6 Chloride 117 H Carbon Dioxide 21.8 Anion Gap 8 BUN 19 H Creatinine 1.23 Estimated GFR 69 L Random Glucose 73 L Calcium 8.3 L Magnesium 1.8 Total Bilirubin 2.7 H AST 49 H ALT 29 Alkaline Phosphatase 102 Total Protein 5.3 L Albumin 2.1 L <Diana Serrano - Last Filed: 09/27/18 09:58> Assessment and Plan (1) Black tarry stools Status: Acute Code(s): K92.1 - Melena - Plan This patient is a 78-year-old male with past medical history of TIA, CHF, hypertension and glaucoma. Surgical history includes appendectomy as a child. Patient presented to the emergency room at [facility] from his assisted living facility with report of dark stools for the last 24 hours. Patient reports that he has had nausea and vomiting x2 episodes nonbloody vomiting, after eating a sandwich with a velázquez last night. He endorses continued very dark brown to black tarry stools after that point. Patient denies abdominal pain, or diarrhea. He reports intermittent nausea without vomiting. Patient denies any dizziness, shortness of breath or lightheadedness. Upon consultation, patient endorses having dark tarry stools with bright red blood noted onset last evening. Patient denies any abdominal pain, reports some nausea without any further vomiting. Patient states that last evening he experienced increased belching with epigastric burning. Patient states he has never had an EGD in the past but does endorse having a colonoscopy greater than 30 years ago where benign polyps were found per his recollection. Patient denies heartburn or difficulty swallowing. Of note, patient son reports that he was recently admitted in August 2018 for diagnosis of dehydration. His son reports that when patient was released he was given a prescription for Plavix 75 mg p.o. daily (last dose a few days ago). During a neurology appointment earlier this week, patient was instructed not to take Plavix any further. According to his son, patient has also been taking aspirin which he believes is full strength at 325 mg p.o. daily. Patient denies any use of NSAIDs such as ibuprofen on a consistent basis. Patient denies any use of tobacco or alcohol products. GI bleed with dark tarry stools Patient endorses multiple episodes of dark tarry stools the last 24 hours. States 2 episodes of nonbloody emesis and denies abdominal pain, dizziness or shortness of breath. Of note, patient was recently taking Plavix 75 mg p.o. daily-last dose a few days ago. Patient was also taking aspirin 325 mg p.o. daily for pain. 09/25/2018 hemoglobin 7.7 hematocrit 22.8 platelet count 92 INR 1.5 total bilirubin 2.1 AST 61 ALT 13 alk phos 171. 09/26/2018 GI bleed Patient sitting up at bedside tolerating clear liquid diet No reported bleeding ,patient denies BM today Hemoglobin 8.9 hematocrit 25.8 (09/25) Patient's son reported last dose of Plavix was given to patient on 09/20 Plan -Clear liquid diet -N.p.o. after midnight -Obtain consent for EGD and Colonoscopy-scheduled for tomorrow -[place] prep -Monitor for bleeding -Monitor hemoglobin and hematocrit -PPI -Avoid NSAIDs or anticoagulants -Transfuse if needed -Supportive care -Further recommendations to follow This patient has been seen by myself and Dr. Serrano and this note is written on his behalf - Attending Attestation Dr. Serrano <Vivienne Atkins - Last Filed: 09/26/18 14:15> (1) Black tarry stools Status: Acute Code(s): K92.1 - Melena - Attending Attestation Seen and examined, plan as above, will proceed with EGD and Colonoscopy in AM. Further recommendations to follow. <Diana Serrano - Last Filed: 09/27/18 09:58>
[2018-09-26] MEDS ORDERED: PEG 3350/E-Lyte Soln 4000 ML Bottle PO ONE (16:00)
[2018-09-26] MEDS: Latanoprost 0.005% Opth Drops 2.5 ML Bottle EACH EYE SCH (17:51)
--- NOTE | 2018-09-26 18:00 | P.PN ---
Subjective Interval history: NOT seen Physical Exam Vital signs: Vital Signs 09/25/18 20:00 09/25/18 21:20 09/26/18 00:00 Temperature 97.3 F L 97.3 F L 97.8 F Pulse Rate 85 85 85 Respiratory Rate 22 22 20 Blood Pressure 160/80 H 160/80 H 127/62 Pulse Oximetry 97 97 99 09/26/18 01:35 09/26/18 08:00 09/26/18 12:00 Temperature 97.5 F L 98.2 F 97.2 F L Pulse Rate 89 84 80 Respiratory Rate 20 15 16 Blood Pressure 144/65 H 119/60 134/62 Pulse Oximetry 97 99 09/26/18 16:00 09/26/18 17:41 Temperature 98.0 F Pulse Rate 78 Respiratory Rate 18 Blood Pressure 166/74 H Pulse Oximetry 97 99 Intake & Output 09/25/18 09/26/18 09/26/18 18:59 06:59 18:59 Intake Total 1000 / 1000 760 / 760 1350 / 1350 Output Total 175 / 175 1100 / 1100 Balance 825 / 825 -340 / -340 1350 / 1350 Weight 85.5 kg 80.8 kg Intake: IV 1000 / 1000 250 / 250 NS Inj 250 ML @ 15 mls/hr IV. 250 / 250 SIG ONCE ERICH Rx#:[id number] Oral 1100 / 1100 Intake (Blood Product) Amt 0 / 0 760 / 760 Rbc As-3 Leukoreduced Unit 0 / 0 400 / 400 [id number] Rbc As-3 Leukoreduced Unit 360 / 360 [id number] Output: Urine 175 / 175 1100 / 1100 Other: # Voids 1 1 3 # Bowel Movements 1 8 Weight On Admission 85.5 kg Narrative: wdwn 78yo m aaox3 flat affect no distress pleasant heart s1s2 reg lungs clear no wrr , good air movment abd soft nondt pos bs no tenderess ext + 1 edema, no calf tenderness Results - Labs CBC & Chem 7: 09/26/18 03:47 09/26/18 03:47 Laboratory Results - last 24 hr 09/25/18 09/26/18 09/26/18 15:58 03:47 03:47 WBC 13.0 H RBC 2.55 L Hgb 8.9 L Hct 25.8 L MCV 101.2 H D MCH 35.0 H MCHC 34.5 RDW 23.3 H D Plt Count 73 L MPV 9.0 Prelim Diff (Auto) Slide review pending Neut % (Auto) 60.5 Lymph % (Auto) 23.0 [place] % (Auto) 11.7 H Eos % (Auto) 4.4 H Baso % (Auto) 0.4 Neut # (Auto) 7.8 H Lymph # (Auto) 3.0 [place] # (Auto) 1.5 H Eos # (Auto) 0.6 H Baso # (Auto) 0.1 WBC Differential . Diff Scan Auto diff confirmed Differential Comment . Platelet Estimate Low L Platelet Morphology Enlarged H Acanthocytes (Spur) Occ H Keratocytes Occ H Sodium 147 H Potassium 3.8 D Chloride 117 H Carbon Dioxide 20.1 L Anion Gap 10 BUN 25 H Creatinine 1.40 H Estimated GFR 59 L Random Glucose 112 H Calcium 8.1 L Total Bilirubin 3.1 H AST 51 H ALT 26 Alkaline Phosphatase 129 H Total Protein 5.6 L D Albumin 2.1 L MTS Gel Crossmatch See Detail Assessment and Plan - Assessment (1) Black tarry stools Code(s): K92.1 - Melena Status: Acute - Plan MELENA w hx GIB - GI for egd, monitor h/h ACUTE BLOOD LOSS ANEMIA due to gib s/p prbc HTN - cont bp control DIASTOLIC CHF CHRONIC compensated stable on ra HX TIA - no ac due to gib GLAUCOMA cont home meds THROMBOCYTOPENIA chronic CKD stage vs acute. Nonoliguric. UA noted avoid nephrotoxins AST elevation, mild. No ETOH use. Monitor Chemical DVT proph c/i due to GIB
[2018-09-26] MEDS ORDERED: Sod Chloride 0.9% Inj 1,000 ML IV.CONT SCH (19:15)
[2018-09-26] MEDS ORDERED: Chlorhexidine Gluconate 2% 1 Pack (2 Cloths) TOPICAL ONE (19:52)
[2018-09-26] MEDS ORDERED: Metoprolol Tartrate 25 MG Tablet PO ONE (19:52)
[2018-09-26] MEDS ORDERED: Sodium Chlor 0.9% Inj 500 ML IV.SIG SCH (20:00)
[2018-09-27] MEDS: Pantoprazole Inj 40 MG Vial IV.PUSH SCH (04:33)
[2018-09-27 06:47] LABS: Baso % (Auto) 0.4 % (0.0-2.0); Eos # (Auto) 0.6 th/mm3 (0.0-0.4); Eos % (Auto) 6.1 % (0.0-4.0); Hematocrit 23.6 % (39.0-51.0); Hemoglobin 8.3 gm/dL (13.0-17.0); Lymph # (Auto) 2.5 th/mm3 (1.0-4.8); Lymph % (Auto) 24.9 % (9.0-44.0); Mean Corpuscular HGB Conc 35.2 % (32.0-36.0); Mean Corpuscular Hemoglobin 35.7 pg (27.0-34.0); Mean Corpuscular Volume 101.6 fL (80.0-100.0); Mono # (Auto) 1.1 th/mm3 (0.0-0.9); Mono % (Auto) 10.4 % (0.0-8.0); Neut # (Auto) 5.9 th/mm3 (1.8-7.7); Neut % (Auto) 58.2 % (16.0-70.0); Platelet Count 68 th/mm3 (150-450); Red Blood Count 2.32 mil/mm3 (4.50-5.90); Red Cell Distribution Width 23.6 % (11.6-17.2); White Blood Count 10.2 th/mm3 (4.0-11.0)
[2018-09-27 07:07] LABS: Albumin 2.1 g/dL (3.4-5.0); Anion Gap 8 meq/L (5-15); Aspartate Aminotransferase 49 U/L (15-37); Blood Urea Nitrogen 19 mg/dL (7-18); Calcium 8.3 mg/dL (8.5-10.1); Carbon Dioxide 21.8 meq/L (21.0-32.0); Chloride 117 meq/L (98-107); Glomerular Filtration Rate 69 mL/min (>89); Glucose,Random 73 mg/dL (74-106); Magnesium 1.8 mg/dL (1.5-2.5); Potassium 3.6 meq/L (3.5-5.1); Sodium 147 meq/L (136-145)
[2018-09-27 07:12] LABS: Alanine Aminotransferase 29 U/L (12-78); Alkaline Phosphatase 102 U/L (45-117); Total Protein 5.3 g/dL (6.4-8.2)
[2018-09-27] MEDS: Ferrous Sulfate 325 MG Tablet PO SCH ×3 (08:37→18:10)
[2018-09-27] MEDS: FLUoxetine 20 MG Capsule PO SCH (08:37)
[2018-09-27 09:24] LABS: Eosinophils 7 % (0-4); Lymphocytes 33 % (9-44); Monocytes 6 % (0-8); Platelet Morphology Normal (Normal)
--- NOTE | 2018-09-27 10:31 | GIPROC ---
[facility] [address] [facility]. [facility], [address] COLONOSCOPY PROCEDURE REPORT EXAM DATE: 09/27/2018 PATIENT NAME: Jayesh Tomlin MR #: [id number] BIRTHDATE: 1940 ENDOSCOPIST: Diana Serrano MD ORDER #: [id number] ELECTRON BEAM OPERATOR: Bigg Alex and Jayde West STATUS: inpatient INDICATIONS: The patient is a 78 yr old male here for a colonoscopy due to unspecified GI bleeding PROCEDURE PERFORMED: Colonoscopy with polypectomy MEDICATIONS: Per Anesthesia and None. PREP QUALITY: poor PREP TYPE:GoLytely ESTIMATED BLOOD LOSS: None CONSENT: The patient understands the risks and benefits of the procedure and understands that these risks include, but are not limited to: sedation, allergic reaction, infection, perforation and/or bleeding. Alternative means of evaluation and treatment include, among others: physical exam, x-rays, and/or surgical intervention. The patient elects to proceed with this endoscopic procedure. medical equipment was checked for proper function. Hand hygiene and appropriate measures for infection prevention was taken. After the risks, benefits and alternatives of the procedure were thoroughly explained, Informed consent was verified, confirmed and timeout was successfully executed by the treatment team. A digital exam revealed no abnormalities of the rectum The Pentax EC-[id number] endoscope was introduced through the anus and advanced to the cecum, which was identified by both the appendix and ileocecal valve. The instrument was then slowly withdrawn as the colon was fully examined. COLON FINDINGS: A small smooth pedunculated polyp with a friable surface was found in the ascending colon. A polypectomy was performed with a cold snare. The resection was complete and the polyp tissue was completely retrieved. A medium sized polypoid shaped pedunculated polyp was found in the transverse colon. A polypectomy was performed with a cold snare. The resection was complete and the polyp tissue was completely retrieved. Moderate sized internal hemorrhoids were found. Retroflexed views revealed no abnormalities The scope was then completely withdrawn from the patient and the procedure terminated. PROCEDURE WITHDRAWAL TIME:9minutes ADVERSE EVENTS: There were no complications. IMPRESSIONS: 1. A small pedunculated polyp was found in the ascending colon; polypectomy was performed with a cold snare 2. A medium sized pedunculated polyp was found in the transverse colon; polypectomy was performed with a cold snare 3. Moderate sized internal hemorrhoids 4. Poor bowel prep but no large lesions or polyps. RECOMMENDATIONS: 1. Await biopsy results. Biopsy results will not be ready for 7-10 days. If you don't hear from us in two weeks, call our office for results. 2. Follow-up: GI Clinic 1 month(s) RECALL: Return 1 year Colonoscopy Diana Serrano MD eSigned: Diana Serrano MD 09/27/2018 10:30 AM cc: PATIENT NAME: Jayesh Tomlin MR#: [id number]
--- NOTE | 2018-09-27 10:36 | GIPROC ---
[facility] [address] [facility]. [facility], [address] EGD PROCEDURE REPORT EXAM DATE: 09/27/2018 PATIENT NAME: Jayesh Tomlin MR #: [id number] BIRTHDATE: 1940 ATTENDING: Diana Serrano MD ORDER #: [id number] MORTGAGE LOAN PROCESSOR: [employer] Jayde West STATUS: inpatient INDICATIONS: The patient is a 78 yr old male here for an EGD due to heme positive stool PROCEDURE PERFORMED: EGD w/ biopsy MEDICATIONS: Per Anesthesia and None. TOPICAL ANESTHETIC: none CONSENT: The patient understands the risks and benefits of the procedure and understands that these risks include, but are not limited to: sedation, allergic reaction, infection, perforation and/or bleeding. Alternative means of evaluation and treatment include, among others: physical exam, x-rays, and/or surgical intervention. The patient elects to proceed with this endoscopic procedure. medical equipment was checked for proper function. Hand hygiene and appropriate measures for infection prevention was taken. After the risks, benefits and alternatives of the procedure were thoroughly explained, Informed consent was verified, confirmed and timeout was successfully executed by the treatment team. The patient was anesthetized with topical anesthesia and the EC-3490Li (Pedi C) endoscope was introduced through the mouth and advanced to the second portion of the duodenum. Retroflexion was performed and was normal The gastroscope was then slowly withdrawn and removed. ESOPHAGUS: There was LA Class A esophagitis noted. STOMACH: The stomach otherwise appeared normal. A biopsy was performed using cold forceps. Sample sent for histology. DUODENUM: Multiple large non-bleeding non-bleeding, round and clean-based ulcers were found in the 1st part of the duodenum. ADVERSE EVENTS: There were no complications. IMPRESSIONS: 1. There was LA Class A esophagitis noted 2. The stomach otherwise appeared normal , biopsies taken for H. Pylori 3. Multiple large non-bleeding ulcers were found in the 1st part of the duodenum 4. Retroflexion was performed and was normal RECOMMENDATIONS: 1. Await biopsy results. Biopsy results will not be ready for 7-10 days. If you don't hear from us in two weeks, call our office for biopsy results. 2. Continue PPI PATIENT CONDITION: stable DISPOSITION: Observation REPEAT EXAM: NONE Diana Serrano MD eSigned: Diana Serrano MD 09/27/2018 10:36 AM cc: PATIENT NAME: Jayesh Tomlin MR#: [id number]
--- NOTE | 2018-09-27 12:46 | P.PN ---
Subjective Interval history: F/u GIB. Starving. Endoscopy results discussed with patient avoid aspirin and NSAIDs. Antireflux mechanisms discussed with patient follow-up biopsy results with GI outpatient. Physical Exam Vital signs: Vital Signs 09/26/18 16:00 09/26/18 17:41 09/26/18 20:00 Temperature 98.0 F 98 F Pulse Rate 78 82 Respiratory Rate 18 22 Blood Pressure 166/74 H 166/72 H Pulse Oximetry 97 99 97 09/27/18 00:00 09/27/18 07:59 09/27/18 10:36 Temperature 98.4 F 98.1 F 97.4 F L Pulse Rate 88 83 82 Respiratory Rate 20 17 16 Blood Pressure 146/65 H 130/61 119/58 L Pulse Oximetry 100 99 98 09/27/18 11:05 09/27/18 12:00 Temperature 98.1 F Pulse Rate 78 Respiratory Rate 17 Blood Pressure 150/69 H Pulse Oximetry 98 98 Intake & Output 09/26/18 09/27/18 09/27/18 18:59 06:59 18:59 Intake Total 1830 / 1830 500 / 500 Output Total 700 / 700 Balance 1830 / 1830 -700 / -700 500 / 500 Weight 81.7 kg Intake: IV 250 / 250 NS Inj 250 ML @ 15 mls/hr IV. 250 / 250 SIG ONCE ERICH Rx#:[id number] Oral 1580 / 1580 Anesthesia Amount 500 / 500 Output: Urine 400 / 400 Stool 300 / 300 Other: # Voids 3 2 Date of Last Bowel Movement 09/26/18 # Bowel Movements 1 2 Narrative: wdwn 78yo m aaox3 flat affect no distress pleasant heart s1s2 reg lungs clear no wrr , good air movment abd soft nondt pos bs no tenderess ext trace edema, no calf tenderness Results - Labs CBC & Chem 7: 09/27/18 04:29 09/27/18 04:29 Laboratory Results - last 24 hr 09/27/18 09/27/18 04:29 04:29 WBC 10.2 RBC 2.32 L Hgb 8.3 L Hct 23.6 L MCV 101.6 H MCH 35.7 H MCHC 35.2 RDW 23.6 H Plt Count 68 L MPV 9.0 Prelim Diff (Auto) Slide review pending Neut % (Auto) 58.2 Lymph % (Auto) 24.9 [place] % (Auto) 10.4 H Eos % (Auto) 6.1 H Baso % (Auto) 0.4 Neut # (Auto) 5.9 Lymph # (Auto) 2.5 [place] # (Auto) 1.1 H Eos # (Auto) 0.6 H Baso # (Auto) 0.0 WBC Differential Manual diff final Seg Neuts % (Manual) 51 Band Neuts % (Manual) 2 Lymphocytes % (Manual) 33 Monocytes % (Manual) 6 Eosinophils % (Manual) 7 H Basophils % (Manual) 1 Abs Neuts (Manual) 5.4 Differential Comment . Platelet Estimate Low L Platelet Morphology Normal Sodium 147 H Potassium 3.6 Chloride 117 H Carbon Dioxide 21.8 Anion Gap 8 BUN 19 H Creatinine 1.23 Estimated GFR 69 L Random Glucose 73 L Calcium 8.3 L Magnesium 1.8 Total Bilirubin 2.7 H AST 49 H ALT 29 Alkaline Phosphatase 102 Total Protein 5.3 L Albumin 2.1 L - Procedures EGD and colonoscopy Assessment and Plan - Assessment (1) Black tarry stools Code(s): K92.1 - Melena Status: Acute - Plan MELENA w hx GIB -improved EGD shows esophagitis and nonbleeding duodenal ulcers. Colonoscopy shows polyps in the ascending and transverse colon status post polypectomy and internal hemorrhoids. Avoid aspirin and NSAIDs. Continue PPI. Antireflux mechanisms discussed with patient ACUTE BLOOD LOSS ANEMIA due to gib s/p prbc. Stable HTN - cont bp control DIASTOLIC CHF CHRONIC compensated stable on ra HX TIA - no ac due to gib GLAUCOMA cont home meds THROMBOCYTOPENIA chronic CKD stage not known vs acute. Nonoliguric. UA noted. Improved discontinue IV hydration. Avoid nephrotoxins AST elevation, mild. No ETOH use. Monitor Chemical DVT proph c/i due to GIB Discharge Planning: DC per GI. Consult physical therapy
--- NOTE | 2018-09-27 14:45 | P.DCO ---
- Diagnosis (1) Weakness Status: Acute - Physical Therapy Order: Evaluate and treat, Improve ambulation, Strength and gait training - Home Health Nursing Order: Medical education, Medication education-adverse effect, Nursing assessment with vital signs - Case Management Consult Case Management Consult-Home Health: Yes - Certification I have seen patient Jayesh Tomlin on 09/27/18. My clinical findings support the need for the requested home health care services because: Deconditioned with increased weakness I certify that my clinical findings support that this patient is homebound because: Unsafe to leave home unassisted
[2018-09-27] MEDS: Latanoprost 0.005% Opth Drops 2.5 ML Bottle EACH EYE SCH (18:10)
[2018-09-28 07:19] LABS: Baso # (Auto) 0.1 th/mm3 (0.0-0.2); Baso % (Auto) 0.7 % (0.0-2.0); Eos # (Auto) 0.4 th/mm3 (0.0-0.4); Eos % (Auto) 5.9 % (0.0-4.0); Hematocrit 21.9 % (39.0-51.0); Hemoglobin 7.5 gm/dL (13.0-17.0); Lymph # (Auto) 1.7 th/mm3 (1.0-4.8); Mean Corpuscular HGB Conc 34.2 % (32.0-36.0); Mean Corpuscular Hemoglobin 35.7 pg (27.0-34.0); Mean Corpuscular Volume 104.3 fL (80.0-100.0); Mean Platelet Volume 9.4 fL (7.0-11.0); Mono # (Auto) 0.8 th/mm3 (0.0-0.9); Mono % (Auto) 10.7 % (0.0-8.0); Neut # (Auto) 4.4 th/mm3 (1.8-7.7); Neut % (Auto) 59.7 % (16.0-70.0); Platelet Count 68 th/mm3 (150-450); Red Cell Distribution Width 23.6 % (11.6-17.2); White Blood Count 7.3 th/mm3 (4.0-11.0)
[2018-09-28 07:32] LABS: Alkaline Phosphatase 98 U/L (45-117)
[2018-09-28 07:39] LABS: Alanine Aminotransferase 31 U/L (12-78); Albumin 1.7 g/dL (3.4-5.0); Anion Gap 5 meq/L (5-15); Aspartate Aminotransferase 58 U/L (15-37); Blood Urea Nitrogen 13 mg/dL (7-18); Calcium 8.1 mg/dL (8.5-10.1); Carbon Dioxide 20.8 meq/L (21.0-32.0); Chloride 118 meq/L (98-107); Glomerular Filtration Rate 75 mL/min (>89); Glucose,Random 107 mg/dL (74-106); Magnesium 1.9 mg/dL (1.5-2.5); Sodium 144 meq/L (136-145)
[2018-09-28 07:42] LABS: Potassium 3.9 meq/L (3.5-5.1)
[2018-09-28] MEDS ORDERED: Sodium Chlor 0.9% Inj 250 ML IV.SIG SCH (09:00)
[2018-09-28 09:20] LABS: Ovalocytes 1+
[2018-09-28 09:21] LABS: Platelet Morphology Normal (Normal)
[2018-09-28] MEDS: FLUoxetine 20 MG Capsule PO SCH (10:40)
[2018-09-28] MEDS: Ferrous Sulfate 325 MG Tablet PO SCH ×3 (10:40→18:24)
--- NOTE | 2018-09-28 13:00 | P.PN ---
Subjective Interval history: Follow-up GI bleed. No further bleeding. Tolerating blood transfusion. Discussed with son, patient will be discharged in the morning if stable hemoglobin. Physical Exam Vital signs: Vital Signs 09/27/18 15:53 09/27/18 20:00 09/28/18 00:00 Temperature 97.6 F 97.8 F 98 F Pulse Rate 82 86 91 H Respiratory Rate 18 17 17 Blood Pressure 157/72 H 180/79 H 117/56 L Pulse Oximetry 97 96 99 09/28/18 08:00 09/28/18 10:23 Temperature 98 F Pulse Rate 84 Respiratory Rate 18 Blood Pressure 133/62 Pulse Oximetry 99 97 Intake & Output 09/27/18 09/28/18 09/28/18 18:59 06:59 18:59 Intake Total 1220 / 1220 1000 / 1000 Balance 1220 / 1220 1000 / 1000 Weight 84.8 kg Intake: IV 1000 / 1000 Oral 720 / 720 Anesthesia Amount 500 / 500 Other: # Voids 4 2 # Bowel Movements 4 Narrative: wdwn 78yo m aaox3 flat affect no distress pleasant s1s2 reg lungs clear no wrr , good air movment abd soft nondt pos bs no tenderess ext trace edema, no calf tenderness Results - Labs CBC & Chem 7: 09/28/18 05:48 09/28/18 05:48 Laboratory Results - last 24 hr 09/28/18 09/28/18 09/28/18 05:48 05:48 09:36 WBC 7.3 RBC 2.10 L Hgb 7.5 L Hct 21.9 L MCV 104.3 H MCH 35.7 H MCHC 34.2 RDW 23.6 H Plt Count 68 L MPV 9.4 Prelim Diff (Auto) Slide review pending Neut % (Auto) 59.7 Lymph % (Auto) 23.0 [place] % (Auto) 10.7 H Eos % (Auto) 5.9 H Baso % (Auto) 0.7 Neut # (Auto) 4.4 Lymph # (Auto) 1.7 [place] # (Auto) 0.8 Eos # (Auto) 0.4 Baso # (Auto) 0.1 WBC Differential . Diff Scan Auto diff confirmed Differential Comment . Platelet Estimate Low L Platelet Morphology Normal Polychromasia 2.0 H Ovalocytes 1+ H Sodium 144 Potassium 3.9 Chloride 118 H Carbon Dioxide 20.8 L Anion Gap 5 BUN 13 Creatinine 1.14 Estimated GFR 75 L Random Glucose 107 H Calcium 8.1 L Magnesium 1.9 Total Bilirubin 2.3 H AST 58 H ALT 31 Alkaline Phosphatase 98 Total Protein 5.0 L Albumin 1.7 L Blood Type B Positive Antibody Screen Negative MTS Gel Crossmatch See Detail - Procedures EGD and colonoscopy Assessment and Plan - Assessment (1) Weakness Code(s): R53.1 - Weakness Status: Acute (2) Black tarry stools Code(s): K92.1 - Melena Status: Acute - Plan MELENA w hx GIB -improved EGD shows esophagitis and nonbleeding duodenal ulcers. Colonoscopy shows polyps in the ascending and transverse colon status post polypectomy and internal hemorrhoids. Avoid aspirin and NSAIDs. Continue PPI. Antireflux mechanisms discussed with patient ACUTE BLOOD LOSS ANEMIA due to gib s/p prbc. Hemoglobin dropped to 7.5. Transfuse 1 more unit and repeat hemoglobin at least 8 HTN - cont bp control DIASTOLIC CHF CHRONIC compensated stable on ra HX TIA - no ac due to gib GLAUCOMA cont home meds THROMBOCYTOPENIA chronic CKD stage not known vs acute. Nonoliguric. UA noted. Improved discontinue IV hydration. Avoid nephrotoxins AST elevation, mild. No ETOH use. Monitor Chemical DVT proph c/i due to GIB Discharge Planning: DC per GI. Consult physical therapy. We will not discharge today since blood transfusion will not be completed until early evening and needs repeat hemoglobin
--- NOTE | 2018-09-28 15:47 | P.PNGI ---
Subjective Interval history: Sitting up in the chair asking simple questions Looking for his son for generalized update patient is currently receiving transfusion Mild altered mental status which may be his norm No abdominal pain no nausea no vomiting <Marley Davila - Last Filed: 09/28/18 15:47> Physical Exam Vital signs: Vital Signs 09/27/18 15:53 09/27/18 20:00 09/28/18 00:00 Temperature 97.6 F 97.8 F 98 F Pulse Rate 82 86 91 H Respiratory Rate 18 17 17 Blood Pressure 157/72 H 180/79 H 117/56 L Pulse Oximetry 97 96 99 09/28/18 08:00 09/28/18 10:23 09/28/18 12:00 Temperature 98 F 97.1 F L Pulse Rate 84 84 Respiratory Rate 18 18 Blood Pressure 133/62 140/55 L Pulse Oximetry 99 97 98 09/28/18 13:15 09/28/18 13:33 09/28/18 13:53 Temperature 98.2 F 98.6 F 98.3 F Pulse Rate 87 85 84 Respiratory Rate 18 18 18 Blood Pressure 140/65 140/66 129/60 Pulse Oximetry 99 97 98 Intake & Output 09/27/18 09/28/18 09/28/18 18:59 06:59 18:59 Intake Total 1220 / 1220 1000 / 1000 0 / 0 Balance 1220 / 1220 1000 / 1000 0 / 0 Weight 84.8 kg Intake: IV 1000 / 1000 Oral 720 / 720 Anesthesia Amount 500 / 500 Intake (Blood Product) Amt 0 / 0 Rbc As-3 Leukoreduced Unit 0 / 0 [id number] Other: # Voids 4 2 # Bowel Movements 4 - Constitutional no acute distress, chronically ill appearing, disheveled - Routine HEENT Exam Head: Present: normocephalic ENT: Present: mucous membranes moist (Pale) - Routine Neck Exam Present: supple - Routine Respiratory Exam Present: accessory muscle use (Even, unlabored at rest) - Routine Cardiovascular Exam Present: S1, S2 - Routine Abdominal Exam Present: soft (Round, no obvious tenderness to light palpation) - Routine Skin Exam Present: intact, pallor <Marley Davila - Last Filed: 09/28/18 15:47> Vital signs: Vital Signs 09/28/18 16:00 09/28/18 20:00 09/29/18 00:00 Temperature 97.6 F 97.5 F L 97.2 F L Pulse Rate 84 87 84 Respiratory Rate 20 16 16 Blood Pressure 149/70 H 162/74 H 139/65 Pulse Oximetry 98 99 98 09/29/18 08:00 Temperature 98.0 F Pulse Rate 82 Respiratory Rate 16 Blood Pressure 125/62 Pulse Oximetry 97 Intake & Output 09/28/18 09/29/18 09/29/18 18:59 06:59 18:59 Intake Total 400 / 400 Output Total 200 / 200 Balance 200 / 200 Weight 84.5 kg Intake: IV NS Inj 250 ML @ 15 mls/hr IV. SIG ONCE ERICH Rx#:[id number] Oral 400 / 400 Intake (Blood Product) Amt 0 / 0 Rbc As-3 Leukoreduced Unit 0 0 [id number] Output: Urine 200 / 200 Other: # Voids 1 Date of Last Bowel Movement 09/26/18 <Diana Serrano A - Last Filed: 09/29/18 14:41> Results - Labs CBC & Chem 7: 09/28/18 05:48 09/28/18 05:48 Laboratory Results - last 24 hr 09/28/18 09/28/18 09/28/18 05:48 05:48 09:36 WBC 7.3 RBC 2.10 L Hgb 7.5 L Hct 21.9 L MCV 104.3 H MCH 35.7 H MCHC 34.2 RDW 23.6 H Plt Count 68 L MPV 9.4 Prelim Diff (Auto) Slide review pending Neut % (Auto) 59.7 Lymph % (Auto) 23.0 [place] % (Auto) 10.7 H Eos % (Auto) 5.9 H Baso % (Auto) 0.7 Neut # (Auto) 4.4 Lymph # (Auto) 1.7 [place] # (Auto) 0.8 Eos # (Auto) 0.4 Baso # (Auto) 0.1 WBC Differential . Diff Scan Auto diff confirmed Differential Comment . Platelet Estimate Low L Platelet Morphology Normal Polychromasia 2.0 H Ovalocytes 1+ H Sodium 144 Potassium 3.9 Chloride 118 H Carbon Dioxide 20.8 L Anion Gap 5 BUN 13 Creatinine 1.14 Estimated GFR 75 L Random Glucose 107 H Calcium 8.1 L Magnesium 1.9 Total Bilirubin 2.3 H AST 58 H ALT 31 Alkaline Phosphatase 98 Total Protein 5.0 L Albumin 1.7 L Blood Type B Positive Antibody Screen Negative MTS Gel Crossmatch See Detail - Procedures EGD and colonoscopy <Marley Davila - Last Filed: 09/28/18 15:47> - Labs CBC & Chem 7: 09/29/18 03:57 09/28/18 05:48 Laboratory Results - last 24 hr 09/28/18 09/29/18 19:52 03:57 WBC 6.6 RBC 2.67 L Hgb 9.4 L 9.2 L Hct 26.7 L 26.4 L MCV 99.1 D MCH 34.4 H MCHC 34.7 RDW 25.1 H Plt Count 54 L MPV 8.9 Prelim Diff (Auto) Slide review pending Neut % (Auto) 56.7 Lymph % (Auto) 23.6 [place] % (Auto) 11.4 H Eos % (Auto) 7.7 H Baso % (Auto) 0.6 Neut # (Auto) 3.8 Lymph # (Auto) 1.6 [place] # (Auto) 0.8 Eos # (Auto) 0.5 H Baso # (Auto) 0.0 WBC Differential . Diff Scan Auto diff confirmed Differential Comment . Platelet Estimate Low L Platelet Morphology Normal <Diana Serrano - Last Filed: 09/29/18 14:41> Assessment and Plan (1) Black tarry stools Status: Acute Code(s): K92.1 - Melena - Plan This patient is a 78-year-old male with past medical history of TIA, CHF, hypertension and glaucoma. Surgical history includes appendectomy as a child. Patient presented to the emergency room at [facility] from his assisted living facility with report of dark stools for the last 24 hours. Patient reports that he has had nausea and vomiting x2 episodes nonbloody vomiting, after eating a sandwich with a velázquez last night. He endorses continued very dark brown to black tarry stools after that point. Patient denies abdominal pain, or diarrhea. He reports intermittent nausea without vomiting. Patient denies any dizziness, shortness of breath or lightheadedness. Upon consultation, patient endorses having dark tarry stools with bright red blood noted onset last evening. Patient denies any abdominal pain, reports some nausea without any further vomiting. Patient states that last evening he experienced increased belching with epigastric burning. Patient states he has never had an EGD in the past but does endorse having a colonoscopy greater than 30 years ago where benign polyps were found per his recollection. Patient denies heartburn or difficulty swallowing. Of note, patient son reports that he was recently admitted in August 2018 for diagnosis of dehydration. His son reports that when patient was released he was given a prescription for Plavix 75 mg p.o. daily (last dose a few days ago). During a neurology appointment earlier this week, patient was instructed not to take Plavix any further. According to his son, patient has also been taking aspirin which he believes is full strength at 325 mg p.o. daily. Patient denies any use of NSAIDs such as ibuprofen on a consistent basis. Patient denies any use of tobacco or alcohol products. GI bleed with dark tarry stools Patient endorses multiple episodes of dark tarry stools the last 24 hours. States 2 episodes of nonbloody emesis and denies abdominal pain, dizziness or shortness of breath. Of note, patient was recently taking Plavix 75 mg p.o. daily-last dose a few days ago. Patient was also taking aspirin 325 mg p.o. daily for pain. 09/25/2018 hemoglobin 7.7 hematocrit 22.8 platelet count 92 INR 1.5 total bilirubin 2.1 AST 61 ALT 13 alk phos 171. 09/26/2018 GI bleed Patient sitting up at bedside tolerating clear liquid diet No reported bleeding ,patient denies BM today Hemoglobin 8.9 hematocrit 25.8 (09/25) Patient's son reported last dose of Plavix was given to patient on 09/2009/28/2018 patient status post EGD colonoscopy on 09/27/2018. Findings : LA Class A esophagitis, stomach otherwise appears normal biopsies pending Multiple large nonbleeding ulcers found in the first part of the duodenum Colonoscopy findings : small pedunculated polyp found in the ascending colon; polypectomy medium sized pedunculated polyp was found in the transverse colon; polypectomy Moderate sized internal hemorrhoids Poor bowel prep but no large lesions or polyps. Transfusion today hemoglobin 7.5. Plan Diet as tolerated Monitor labs with special attention to hemoglobin , transfuse as needed PPI Avoid NSAIDs, carbonated drinks, spicy greasy foods Bowel regimen as needed No anticoagulation Supportive care, Once patient's hemoglobin is stable patient can follow-up in the GI office outpatient. Will need colonoscopy repeat in 1 year and EGD as needed Patient was seen per myself and Dr. Serrano, note was written on his behalf <Marley Davila - Last Filed: 09/28/18 15:47> (1) Black tarry stools Status: Acute Code(s): K92.1 - Melena - Attending Attestation Agree with above assessment and plan. Please notify us if needed again otherwise out patient follow up. <Diana Serrano - Last Filed: 09/29/18 14:41>
[2018-09-28] MEDS: Latanoprost 0.005% Opth Drops 2.5 ML Bottle EACH EYE SCH (18:53)
[2018-09-28 20:59] LABS: Hematocrit 26.7 % (39.0-51.0); Hemoglobin 9.4 gm/dL (13.0-17.0)
[2018-09-29 05:09] LABS: Baso % (Auto) 0.6 % (0.0-2.0); Eos # (Auto) 0.5 th/mm3 (0.0-0.4); Eos % (Auto) 7.7 % (0.0-4.0); Hematocrit 26.4 % (39.0-51.0); Hemoglobin 9.2 gm/dL (13.0-17.0); Lymph # (Auto) 1.6 th/mm3 (1.0-4.8); Lymph % (Auto) 23.6 % (9.0-44.0); Mean Corpuscular HGB Conc 34.7 % (32.0-36.0); Mean Corpuscular Hemoglobin 34.4 pg (27.0-34.0); Mean Corpuscular Volume 99.1 fL (80.0-100.0); Mean Platelet Volume 8.9 fL (7.0-11.0); Mono # (Auto) 0.8 th/mm3 (0.0-0.9); Mono % (Auto) 11.4 % (0.0-8.0); Neut # (Auto) 3.8 th/mm3 (1.8-7.7); Neut % (Auto) 56.7 % (16.0-70.0); Platelet Count 54 th/mm3 (150-450); Red Blood Count 2.67 mil/mm3 (4.50-5.90); Red Cell Distribution Width 25.1 % (11.6-17.2); White Blood Count 6.6 th/mm3 (4.0-11.0)
[2018-09-29 07:03] LABS: Platelet Morphology Normal (Normal)
--- NOTE | 2018-09-29 08:39 | P.DS ---
Date of admission: 09/25/18 13:29 Primary care physician: UNKNOWN Brief History from admission: Mr. Tomlin is a 78-year-old male. At baseline he has CHF, glaucoma, and hypertension. He lives in an [facility] and it was noted that he had dark stools for the past couple days. The patient has been feeling some fatigue but otherwise is asymptomatic. He is positive for blood in his stool upon testing. He has had GI bleeds before in the past and is not on any blood thinners. No other complaints today. No complete of abdominal pain. No shortness of breath. No fevers. DS: Diagnosis - Discharge Diagnosis (1) Weakness Status: Acute (2) Black tarry stools Status: Acute DS: Medications - Discharge Medications Prescriptions: pantoprazole 40 mg PO BID #60 tab DS: Summary Hospital Course: MELENA w hx GIB -improved EGD shows esophagitis and nonbleeding duodenal ulcers. Colonoscopy shows polyps in the ascending and transverse colon status post polypectomy and internal hemorrhoids. Avoid aspirin and NSAIDs. Continue PPI. Antireflux mechanisms discussed with patient. Rpt C scope in one year. EGD prn ACUTE BLOOD LOSS ANEMIA due to gib s/p prbc. Improved post 3 units keep hemoglobin at least 8 HTN - cont bp control DIASTOLIC CHF CHRONIC compensated stable on ra HX TIA - no ac due to gib GLAUCOMA cont home meds THROMBOCYTOPENIA chronic CKD stage not known vs acute. Nonoliguric. UA noted. Improved discontinue IV hydration. Avoid nephrotoxins AST and TB elevation, mild. No ETOH use. Monitor with outpatient GI follow-up Chemical DVT proph c/i due to GIB - Time Spent with Patient Total time spent providing and/or coordinating discharge services: Greater than 30 minutes - Quality: VTE Deep Vein Thrombosis/Pulmonary Embolism Present on Admission: No Exam Vital signs: Vital Signs 09/28/18 10:23 09/28/18 12:00 09/28/18 13:15 Temperature 97.1 F L 98.2 F Pulse Rate 84 87 Respiratory Rate 18 18 Blood Pressure 140/55 L 140/65 Pulse Oximetry 97 98 99 09/28/18 13:33 09/28/18 13:53 09/28/18 16:00 Temperature 98.6 F 98.3 F 97.6 F Pulse Rate 85 84 84 Respiratory Rate 18 18 20 Blood Pressure 140/66 129/60 149/70 H Pulse Oximetry 97 98 98 09/28/18 20:00 09/29/18 00:00 09/29/18 08:00 Temperature 97.5 F L 97.2 F L 98.0 F Pulse Rate 87 84 82 Respiratory Rate 16 16 16 Blood Pressure 162/74 H 139/65 125/62 Pulse Oximetry 99 98 97 Intake & Output 09/28/18 09/29/18 09/29/18 18:59 06:59 18:59 Intake Total 30 / 30 400 / 400 Output Total 200 / 200 Balance 30 200 / 200 Weight 84.5 kg Intake: IV 30 / 30 NS Inj 250 ML @ 15 mls/hr IV. 30 30 SIG ONCE ERICH Rx#:[id number] Oral 400 / 400 Intake (Blood Product) Amt 0 / 0 Rbc As-3 Leukoreduced Unit 0 / 0 [id number] Output: Urine 200 / 200 Other: # Voids 1 Narrative: wdwn 78yo m aaox3 flat affect no distress pleasant s1s2 reg lungs clear no wrr , good air movment abd soft nondt pos bs no tenderess ext trace edema, no calf tenderness Results Procedures completed during hospitalization: EGD and colonoscopy Completed studies during hospitalization: Pending at discharge 09/27/18 14:07 Surgical [PTH] Routine Labs on day of discharge: Labs from last 24 hours 09/29/18 09/28/18 09/28/18 03:57 19:52 09:36 WBC 6.6 RBC 2.67 L Hgb 9.2 L 9.4 L Hct 26.4 L 26.7 L MCV 99.1 D MCH 34.4 H MCHC 34.7 RDW 25.1 H Plt Count 54 L MPV 8.9 Prelim Diff (Auto) Slide review pending Neut % (Auto) 56.7 Lymph % (Auto) 23.6 Nicollet % (Auto) 11.4 H Eos % (Auto) 7.7 H Baso % (Auto) 0.6 Neut # (Auto) 3.8 Lymph # (Auto) 1.6 Nicollet # (Auto) 0.8 Eos # (Auto) 0.5 H Baso # (Auto) 0.0 WBC Differential . Diff Scan Auto diff confirmed Differential Comment . Platelet Estimate Low L Platelet Morphology Normal Polychromasia Ovalocytes Blood Type B Positive Antibody Screen Negative MTS Gel Crossmatch See Detail 09/28/18 05:48 WBC RBC Hgb Hct MCV MCH MCHC RDW Plt Count MPV Prelim Diff (Auto) Neut % (Auto) Lymph % (Auto) Nicollet % (Auto) Eos % (Auto) Baso % (Auto) Neut # (Auto) Lymph # (Auto) Nicollet # (Auto) Eos # (Auto) Baso # (Auto) WBC Differential . Diff Scan Auto diff confirmed Differential Comment Platelet Estimate Low L Platelet Morphology Normal Polychromasia 2.0 H Ovalocytes 1+ H Blood Type Antibody Screen MTS Gel Crossmatch Discharge Plan - Discharge Disposition Patient Disposition: Disch W/Home Health Service - Discharge Condition Condition: Stable - Discharge Order Discharge Orders: Discharge Order (Routine); Ordered 09/29/18 Ordered By: Adelfo Caraballo - Discharge Details Discharge Comment: dc after I see pt today - Physicians Team Primary Care Provider: UNKNOWN, Attending Provider: Adelfo Caraballo Other Providers: Diana Serrano MD
[2018-09-29] MEDS: FLUoxetine 20 MG Capsule PO SCH (08:56)
[2018-09-29] MEDS: Ferrous Sulfate 325 MG Tablet PO SCH (08:56)
== END 2018-09-29 12:21 | disposition home health service (06) ==
LOC: NEDA 10:51 → NEPC 10:51 → N07 16:00
PROVIDERS: ADMIT Internal Medicine; ATTEND Internal Medicine
PROC: PANENDO (2018-09-27 09:49)
PROC: COLONOS (2018-09-27 09:49)

== ENCOUNTER 2018-10-24 14:21 | Observation (INO) ==
--- NOTE | 2018-10-24 14:59 | ED ---
HPI General Chief complaint: Extremity Problem,Nontraumatic Stated complaint: edema Time Seen by Provider: 10/24/18 14:54 History of Present Illness HPI narrative: 78-year-old male with reported history of CHF, glaucoma and hypertension, resident of [facility], presents with his son for evaluation of edema. Patient has chronic edema but over the past few weeks he has had worsening edema in his arms and legs. The assisted living facility has been applying Dilip wraps on a daily basis to his legs. He is currently taking Lasix 20 mg once a day. According to his son he was hospitalized in September and at that time his spironolactone was discontinued. He has no history of DVT. He is denying any chest pain, shortness of breath, abdominal pain, nausea, vomiting. Denies any dietary indiscretions. He has no other complaints at this time. Related Data Home Medications Medication Instructions Recorded Confirmed ferrous sulfate 325 mg PO TID 08/18/18 10/24/18 fluoxetine 20 mg PO DAILY 08/18/18 10/24/18 latanoprost 1 drp OPHTHALMIC (EYE) QPM 08/18/18 10/24/18 furosemide 20 mg PO DAILY 10/24/18 10/24/18 Previous Rx's Medication Instructions Recorded pantoprazole 40 mg PO BID #60 tab 09/27/18 Allergies Allergy/AdvReac Type Severity Reaction Status Date / Time No Known Allergies Allergy Verified 10/24/18 15:04 Review of Systems ROS: all other systems reviewed are negative PMFSH Medical History Medical History Anemia (Acute) Congestive heart failure (Acute) Glaucoma (Acute) Hypertension (Acute) Tremor (Acute) Surgical History Surgical History History of appendectomy (Acute) Status post repair of hydrocele (Acute) Social History Social History Substance History: No History of Abuse Second Hand Smoke Exposure: No Smoking Status: Never smoker How Often Do You Have a Drink Containing Alcohol: Never Recent Travel in [facility] within the Last 8 Weeks: No Recent Out of Country Travel within the Last 8 Weeks: No Exam Narrative Exam Narrative: GENERAL: Well-developed well-nourished male in no acute distress SKIN: Warm and dry. HEAD: Atraumatic. Normocephalic. EYES: Pupils equal and round. No scleral icterus. No injection or drainage. ENT: No nasal bleeding or discharge. Mucous membranes pink and moist. NECK: Trachea midline. No JVD. CARDIOVASCULAR: Regular rate and rhythm. No murmur appreciated. RESPIRATORY: No accessory muscle use. Clear to auscultation. Breath sounds equal bilaterally. GASTROINTESTINAL: Abdomen soft, non-tender, nondistended. Hepatic and splenic margins not palpable. MUSCULOSKELETAL: No obvious deformities. There is 2+ pitting edema to the lower extremities bilaterally, 1+ edema to the arms and hands bilaterally. Chronic venous stasis changes are noted to the pretibial region bilateral. Dorsalis pedis pulses are palpable. NEUROLOGICAL: Awake and alert. No obvious cranial nerve deficits. Motor grossly within normal limits. Normal speech. Course Initial Documented Vital Signs Temperature 98.7 F 10/24/18 14:28 Pulse Rate 88 10/24/18 14:28 Respiratory Rate 20 10/24/18 14:28 Blood Pressure 190/88 H 10/24/18 14:28 Pulse Oximetry 96 10/24/18 14:28 Last Documented Vital Signs Temperature 98.7 F 10/24/18 14:28 Pulse Rate 87 10/24/18 14:31 Respiratory Rate 11 L 10/24/18 14:31 Blood Pressure 199/84 H 10/24/18 14:31 Pulse Oximetry 98 10/24/18 14:31 Medical Decision Making BRIAN Attestation BRIAN supervised visit: Yes Attestation: I, Dr. moore, have reviewed the advance practice practitioner's documentation and am in agreement, met with the patient face to face, made the diagnosis, and the medical decision making was done by me. *My assessment and Findings: 78-year-old male with swelling to both his legs into his arms. Workup reveals possible fluid on chest x-ray and BNP in the 200s. Patient is already on Lasix. Patient also has elevated LFTs. He agrees to admission to the hospital for echocardiogram and likely abdominal ultrasound for further workup and care given progression of his symptoms MDM Narrative Medical decision making narrative: Lab work, chest x-ray obtained. Lab work reveals mildly elevated liver enzymes, BNP 244, GFR 53, chest x-ray reveals perihilar infiltrates or underlying hilar lymphadenopathy as well as scattered patchiness noted within the right upper lobe and left lung base. Given this and his significant edema in the arms and legs, the patient will be admitted for observation. Medical Screen Exam Complete: Yes Emergency Medical Condition: Yes Differential Diagnosis Differential Diagnosis: CHF exacerbation, renal failure, hypoalbuminemia, electrolyte abnormality, DVT Lab Data Result diagrams: 10/24/18 15:01 10/24/18 15:01 Lab Results 10/24/18 10/24/18 10/24/18 Range/Units 15:01 15:01 15:01 WBC 8.3 (4.0-11.0) th/mm3 RBC 2.98 L (4.50-5.90) mil/mm3 Hgb 10.2 L (13.0-17.0) gm/dL Hct 30.2 L (39.0-51.0) % MCV 101.4 H (80.0-100.0) fL MCH 34.4 H (27.0-34.0) pg MCHC 33.9 (32.0-36.0) % RDW 20.1 H (11.6-17.2) % Plt Count 81 L D (150-450) th/mm3 MPV 9.0 (7.0-11.0) fL Prelim Diff (Auto) Slide review pending Neut % (Auto) 67.8 (16.0-70.0) % Lymph % (Auto) 15.6 (9.0-44.0) % Lassen % (Auto) 10.9 H (0.0-8.0) % Eos % (Auto) 5.0 H (0.0-4.0) % Baso % (Auto) 0.7 (0.0-2.0) % Neut # (Auto) 5.6 (1.8-7.7) th/mm3 Lymph # (Auto) 1.3 (1.0-4.8) th/mm3 Lassen # (Auto) 0.9 (0.0-0.9) th/mm3 Eos # (Auto) 0.4 (0.0-0.4) th/mm3 Baso # (Auto) 0.1 (0.0-0.2) th/mm3 WBC Differential Manual diff final Seg Neuts % (Manual) 80 H (16-70) % Band Neuts % (Manual) 2 (0-6) % Lymphocytes % (Manual) 6 L (9-44) % Monocytes % (Manual) 8 (0-8) % Eosinophils % (Manual) 4 (0-4) % Abs Neuts (Manual) 6.8 (1.8-7.7) th/mm3 Differential Comment . Platelet Estimate Low L (Normal) Platelet Morphology Normal (Normal) PT 15.2 H (9.8-11.6) sec INR 1.5 Ratio APTT 45.4 H (23.4-31.7) sec Sodium 140 (136-145) meq/L Potassium 3.3 L (3.5-5.1) meq/L Chloride 108 H (98-107) meq/L Carbon Dioxide 25.2 (21.0-32.0) meq/L Anion Gap 7 (5-15) meq/L BUN 10 (7-18) mg/dL Creatinine 1.53 H (0.60-1.30) mg/dL Estimated GFR 53 L (>89) mL/min Random Glucose 129 H (74-106) mg/dL Calcium 8.3 L (8.5-10.1) mg/dL Magnesium 2.1 (1.5-2.5) mg/dL Total Bilirubin 4.6 H (0.2-1.0) mg/dL AST 82 H (15-37) U/L ALT 40 (12-78) U/L Alkaline Phosphatase 193 H (45-117) U/L B-Natriuretic Peptide (0-100) pg/mL Total Protein 6.8 (6.4-8.2) g/dL Albumin 1.9 L (3.4-5.0) g/dL 10/24/18 Range/Units 15:01 WBC (4.0-11.0) th/mm3 RBC (4.50-5.90) mil/mm3 Hgb (13.0-17.0) gm/dL Hct (39.0-51.0) % MCV (80.0-100.0) fL MCH (27.0-34.0) pg MCHC (32.0-36.0) % RDW (11.6-17.2) % Plt Count (150-450) th/mm3 MPV (7.0-11.0) fL Prelim Diff (Auto) Neut % (Auto) (16.0-70.0) % Lymph % (Auto) (9.0-44.0) % Lassen % (Auto) (0.0-8.0) % Eos % (Auto) (0.0-4.0) % Baso % (Auto) (0.0-2.0) % Neut # (Auto) (1.8-7.7) th/mm3 Lymph # (Auto) (1.0-4.8) th/mm3 Lassen # (Auto) (0.0-0.9) th/mm3 Eos # (Auto) (0.0-0.4) th/mm3 Baso # (Auto) (0.0-0.2) th/mm3 WBC Differential Seg Neuts % (Manual) (16-70) % Band Neuts % (Manual) (0-6) % Lymphocytes % (Manual) (9-44) % Monocytes % (Manual) (0-8) % Eosinophils % (Manual) (0-4) % Abs Neuts (Manual) (1.8-7.7) th/mm3 Differential Comment Platelet Estimate (Normal) Platelet Morphology (Normal) PT (9.8-11.6) sec INR Ratio APTT (23.4-31.7) sec Sodium (136-145) meq/L Potassium (3.5-5.1) meq/L Chloride (98-107) meq/L Carbon Dioxide (21.0-32.0) meq/L Anion Gap (5-15) meq/L BUN (7-18) mg/dL Creatinine (0.60-1.30) mg/dL Estimated GFR (>89) mL/min Random Glucose (74-106) mg/dL Calcium (8.5-10.1) mg/dL Magnesium (1.5-2.5) mg/dL Total Bilirubin (0.2-1.0) mg/dL AST (15-37) U/L ALT (12-78) U/L Alkaline Phosphatase (45-117) U/L B-Natriuretic Peptide 244 H (0-100) pg/mL Total Protein (6.4-8.2) g/dL Albumin (3.4-5.0) g/dL Imaging Data Radiologist's impression: Chest X-Ray 10/24/18 14:54 CONCLUSION: 1. The rama appear slightly prominent consistent with possible perihilar infiltrates and/or possible underlying hilar lymphadenopathy. 2. Scattered patchiness is noted within the right upper lobe and left lung base consistent with possible pneumonia. Venous Doppler Study 10/24/18 14:55 CONCLUSION: 1. The study is negative for bilateral lower extremity deep venous thrombosis. Discharge Plan Discharge Disposition Patient Disposition: ED Admit(ED Internal Use Only) Discharge Condition Condition: Stable Discharge Order Discharge Orders: ED Use Only Admit Order (Routine); Ordered 10/24/18 Ordered By: Philly Moore Discharge Details Diagnosis: Edema Physicians Team ED Provider: Philly Moore ED Midlevel Provider: Jose Alberto Galicia Primary Care Provider: UNKNOWN, Attending Provider: Aldair Harvey Discharge Interventions Interventions: Vital Signs Last Done: 10/24/18 14:31 Status ED Status: Admitted Observation Patient
[2018-10-24 15:25] LABS: Baso # (Auto) 0.1 th/mm3 (0.0-0.2); Baso % (Auto) 0.7 % (0.0-2.0); Eos # (Auto) 0.4 th/mm3 (0.0-0.4); Hematocrit 30.2 % (39.0-51.0); Hemoglobin 10.2 gm/dL (13.0-17.0); Lymph # (Auto) 1.3 th/mm3 (1.0-4.8); Lymph % (Auto) 15.6 % (9.0-44.0); Mean Corpuscular HGB Conc 33.9 % (32.0-36.0); Mean Corpuscular Hemoglobin 34.4 pg (27.0-34.0); Mean Corpuscular Volume 101.4 fL (80.0-100.0); Mono # (Auto) 0.9 th/mm3 (0.0-0.9); Mono % (Auto) 10.9 % (0.0-8.0); Neut # (Auto) 5.6 th/mm3 (1.8-7.7); Neut % (Auto) 67.8 % (16.0-70.0); Platelet Count 81 th/mm3 (150-450); Red Blood Count 2.98 mil/mm3 (4.50-5.90); Red Cell Distribution Width 20.1 % (11.6-17.2); White Blood Count 8.3 th/mm3 (4.0-11.0)
[2018-10-24 15:37] LABS: Activated Partial Thrombo Time 45.4 sec (23.4-31.7); INR 1.5 Ratio; Prothrombin Time 15.2 sec (9.8-11.6)
[2018-10-24 15:58] LABS: Eosinophils 4 % (0-4); Lymphocytes 6 % (9-44); Monocytes 8 % (0-8); Platelet Morphology Normal (Normal)
[2018-10-24 16:03] LABS: Alanine Aminotransferase 40 U/L (12-78); Albumin 1.9 g/dL (3.4-5.0); Anion Gap 7 meq/L (5-15); Aspartate Aminotransferase 82 U/L (15-37); Blood Urea Nitrogen 10 mg/dL (7-18); Calcium 8.3 mg/dL (8.5-10.1); Carbon Dioxide 25.2 meq/L (21.0-32.0); Chloride 108 meq/L (98-107); Glomerular Filtration Rate 53 mL/min (>89); Glucose,Random 129 mg/dL (74-106); Magnesium 2.1 mg/dL (1.5-2.5); Potassium 3.3 meq/L (3.5-5.1); Sodium 140 meq/L (136-145)
[2018-10-24 16:05] LABS: Alkaline Phosphatase 193 U/L (45-117); Total Protein 6.8 g/dL (6.4-8.2)
--- NOTE | 2018-10-24 16:17 | US ---
EXAM DATE: 10/24/2018 4:10 PM EST AGE/SEX: 78 years / Male INDICATIONS: Bilateral leg swelling. CLINICAL DATA: This is the patient's initial encounter. Patient reports that signs and symptoms have been present for 1 day and indicates a pain score of 0/10. MEDICAL/SURGICAL HISTORY: Congestive heart failure. Hypertension. Anemia. Glaucoma. Tremors. Appendectomy. Hydrocele repair. COMPARISON: No prior exams available for comparison. TECHNIQUE: Venous ultrasound of both lower extremities was performed from the inguinal ligament to t he proximal calf. Real-time, color Doppler and spectral tracing, compression and augmentation techni ques were used. FINDINGS: Right Leg: Normal compression of the deep venous system from the inguinal region to the proximal sameer f. No echogenic clot is seen. Normal response of the venous system to augmentation and respiration. Left Leg: Normal compression of the deep venous system from the inguinal region to the proximal calf . No echogenic clot is seen. Normal response of the venous system to augmentation and respiration. Other: None. CONCLUSION: 1. The study is negative for bilateral lower extremity deep venous thrombosis. Electronically signed by: Ambrocio Lockwood MD Board Certified Radiologist 10/24/2018 4:15 PM EST
--- NOTE | 2018-10-24 16:38 | XR ---
EXAM DATE: 10/24/2018 4:34 PM EST AGE/SEX: 78 years / Male INDICATIONS: Short of breath CLINICAL DATA: This is the patient's initial encounter. Patient reports that signs and symptoms have been present for 1 day and indicates a pain score of 0/10. MEDICAL/SURGICAL HISTORY: . Hypertension. CHF. Glaucoma. Appendectomy. . repair of hydrocel e. COMPARISON: [facility] – [place], CHEST 1V SINGLE AP, 09/14/2018. . FINDINGS: The rama appear slightly prominent consistent with possible perihilar infiltrates and/or possible und erlying hilar lymphadenopathy. The heart is normal. Scattered patchiness is noted within the right up per lobe and left lung base consistent with possible pneumonia. CONCLUSION: 1. The rama appear slightly prominent consistent with possible perihilar infiltrates and/or possible underlying hilar lymphadenopathy. 2. Scattered patchiness is noted within the right upper lobe and left lung base consistent with poss ible pneumonia. Electronically signed by: Ambrocio Lockwood MD Board Certified Radiologist 10/24/2018 4:37 PM EST
--- NOTE | 2018-10-24 17:29 | P.HPFP ---
Addendum entered and electronically signed by Marla Roche MD, R2 00:50: Update: It was decided to con't w/lasix and prn clonidine to see how patient tolerates before starting cardene drip. If BP proves refractory, will then proceed. Will con't to work with nursing. Original Note: History of Present Illness Primary Care Physician: UNKNOWN <Aldair Harvey 10/25/18 11:08> UNKNOWN <Marla Spivey - 10/24/18 17:29> Chief Complaint: swelling in arms and legs <Marla Spivey - 10/24/18 17:29> History of Present Illness: Patient is a 78 y/o gentleman w/hx of CHF presenting to ED w/worsening edema in arms and legs. Coming from [facility]. Worsening edema in the arms and legs. Has been having YENY wraps applied on a daily basis to legs and taking Lasix 20 mg daily. Has had swelling in the legs before in the past. Lasix was given. This time, the edema is worse. Sleeps propped up on pillows, not able to explain why. Legs are painful, occasionally tingle on the bottom of the feet. Last echo was done in September, no abnormalities known. Has been in the hospital every month for dehydration due to refusing water at times. PCP is Dr. Bower. Moved down in January in [place]. Denies chest pain, SOB (even while walking), abd pain, N/V. No hx of alcohol abuse. No hx of heart attack or stroke. Requesting adult diaper due to concerns he can't get to the bathroom fast enough tonight, especially with leg swelling. Med hx: CHF Hx of GI bleed in September Depression Iron deficiency anemia Depression Surg hx: Knee surgery in 2013 Fam Hx: Mom: unknown Dad:unknown Social: No smoking or alcohol use No illicit or recreational drug use Living at [facility]. Primary contact is son Gerhard. Used to work in the army <Marla Spivey - 10/24/18 17:52> - Diagnosis (1) Edema (2) HTN (hypertension) (3) CHF (congestive heart failure) (4) Depression (5) Anemia <Marla Spivey - 10/24/18 18:15> (1) Hepatitis (2) Edema (3) HTN (hypertension) (4) CHF (congestive heart failure) (5) Depression (6) Anemia <[facility] 10/25/18 11:08> Review of Systems Constitutional: Denies fatigue, Denies fever(s), Denies headache(s), Denies weakness <Abid [address] 10/24/18 17:52> Ears, Nose, Mouth, and Throat: Denies abnormal hearing, Denies headache(s), Denies sore throat <Abid [address] 10/24/18 17:52> Cardiovascular: Denies chest pain, Denies fainting, Denies shortness of breath, Denies shortness of breath with activity <Abid [address] 10/24/18 17:52> Respiratory: Reports cough (occasional,non-productive), Denies shortness of breath <Abid [address] 10/24/18 17:52> Gastrointestinal: Denies abdominal pain, Denies constipation <Abid [address] 10/24/18 17:52> Genitourinary: Denies urinary frequency, Denies urinary hesitancy, Denies urinary incontinence <Abid [address] 10/24/18 17:52> Neurologic: Reports confusion, Reports tingling, Reports tremor(s), Denies frequent falls, Denies restless legs <Abid [address] 10/24/18 17:52> Psychiatric: Reports depression [facility] [address] 10/24/18 17:52> Endocrine: Denies increased thirst, Denies increased urination <Abid [address] 10/24/18 17:52> PMFSH - History History Provided By: Patient, Family Member <[address] 10/24/18 17:29 > - Medical History Medical History: Medical History (Last Updated 10/24/18 @ 15:05 by Brittney Herron, HAMLET) Anemia Congestive heart failure Glaucoma Hypertension Tremor [facility]/25/[facility] 11:08> Medical History (Last Updated 10/24/18 @ 15:05 by Brittney Herron RN) Anemia Congestive heart failure Glaucoma Hypertension Tremor <[facility] [address] 10/24/18 17:29> - Surgical History Surgical History: Surgical History (Last Reviewed 09/28/18 @ 08:41 by Kelle Schafer) History of appendectomy Status post repair of hydrocele <Aldair Harvey 10/25/18 11:08> Surgical History (Last Reviewed 09/28/18 @ 08:41 by Kelle Schafer) History of appendectomy Status post repair of hydrocele <Marla Spivey 10/24/18 17:29> - Family History Family History: Family History (Last Reviewed 09/29/18 @ 08:06 by John Patrick) Other Coronary artery disease Diabetes mellitus <Aldair Harvey 10/25/18 11:08> Family History (Last Reviewed 09/29/18 @ 08:06 by John Patrick) Other Coronary artery disease Diabetes mellitus <Marla Spivey 10/24/18 17:29> - Tobacco History Second Hand Smoke Exposure: No <Marla Spivey 10/24/18 17:29> Smoking Status: Never smoker <Marla Spivey 10/24/18 17:29> - Alcohol History How Often Do You Have a Drink Containing Alcohol: Never <Marla Spivey 17:29> - Substance Use History Substance History: No History of Abuse <Marla Spivey 10/24/18 17:29> - Travel History Recent Travel in the [facility] Within the Last 8 Weeks: No <Marla Spivey 10/24 17:29> Recent Travel Out of the Country Within the Last 8 Weeks: No <Marla Spivey 10/24/18 17:29> - Immunization History Tetanus Immunization: <5 Years <Marla Spivey 10/24/18 17:29> Medications and Allergies Allergies Allergy/AdvReac Type Severity Reaction Status Date / Time No Known Allergies Allergy Verified 10/24/18 15:04 <Aldair Harvey 10/25/18 11:08> Home Medications Medication Instructions Recorded Confirmed Type ferrous sulfate 325 mg PO TID 08/18/18 10/24/18 History fluoxetine 20 mg PO DAILY 08/18/18 10/24/18 History latanoprost 1 drp OPHTHALMIC (EYE) QPM 08/18/18 10/24/18 History furosemide 20 mg PO DAILY 10/24/18 10/24/18 History <Aldair Harvey - 10/25/18 11:08> Active Medications: Active Medications Acetaminophen (Tylenol) 650 mg PO Q4H PRN PRN Reason: Temp > 100.4 Al Hydroxide/Mg Hydroxide (Milk Of Magnesia Liq) 30 ml PO Q12H PRN PRN Reason: Mild Constipation Bisacodyl (Dulcolax Supp) 10 mg RECTAL DAILY PRN PRN Reason: SEVERE CONSITIPATION Carvedilol (Coreg) 6.25 mg PO BID [facility] Last Admin: 10/24/18 21:43 Dose: 6.25 mg Clonidine HCl (Catapres) 0.1 mg PO Q6H PRN PRN Reason: SEE LABEL COMMENTS Last Admin: 10/24/18 19:51 Dose: 0.1 mg Enoxaparin Sodium (Lovenox Inj) 40 mg SQ Q24H [facility] Last Admin: 10/24/18 19:51 Dose: 40 mg Ferrous Sulfate (Ferosul) 325 mg PO TID [facility] Fluoxetine HCl (Prozac) 20 mg PO DAILY [facility] Furosemide (Lasix Inj) 40 mg IV.PUSH BID@0900,1800 [facility] Last Admin: 10/24/18 19:50 Dose: 40 mg Furosemide (Lasix) 20 mg PO DAILY [facility] Lactulose (Lactulose Liq) 30 ml PO DAILY PRN PRN Reason: SEVERE CONSITIPATION Latanoprost (Xalatan 0.005% Opth Drops) 1 drop EACH EYE QPM [facility] Ondansetron HCl (Zofran Inj) 4 mg IV.PUSH Q6H PRN PRN Reason: NAUSEA OR VOMITING Pantoprazole Sodium (Protonix) 40 mg PO BID [facility] Last Admin: 10/24/18 21:42 Dose: 40 mg Senna/Docusate Sodium (Catherine-Colace) 1 tab PO BID [facility] Last Admin: 10/24/18 21:45 Dose: 1 tab Sennosides (Senokot) 17.2 mg PO Q12H PRN PRN Reason: Moderate Constipation Sodium Chloride (Ns Flush) 2 ml IV.FLUSH BID [facility] Last Admin: 10/24/18 21:42 Dose: 2 ml Sodium Chloride (Ns Flush) 2 ml IV.FLUSH PRN PRN PRN Reason: FLUSH AFTER USING IV ACCESS Sodium Chloride (Ns Flush) 2 ml IV.FLUSH PRN PRN PRN Reason: FLUSH AFTER USING IV ACCESS <Aldair Harvey - 10/25/18 11:08> Exam Vital signs: Vital Signs 10/24/18 14:28 10/24/18 14:31 10/24/18 18:07 Temperature 98.7 F Pulse Rate 88 87 88 Respiratory Rate 20 11 L 14 Blood Pressure 190/88 H 199/84 H 183/87 H Pulse Oximetry 96 98 98 10/24/18 20:10 10/24/18 21:10 10/25/18 01:21 Temperature 97.5 F L Pulse Rate 89 88 70 Respiratory Rate 17 Blood Pressure 169/77 H 149/71 H 121/58 L Pulse Oximetry 98 97 95 10/25/18 03:42 10/25/18 07:40 10/25/18 09:10 Temperature 97.6 F 97.4 F L Pulse Rate 71 68 Respiratory Rate 18 16 Blood Pressure 132/70 129/60 Pulse Oximetry 95 99 97 Intake & Output 10/24/18 10/25/18 10/25/18 18:59 06:59 18:59 Intake Total 0 / 0 Balance 0 / 0 Weight 108.862 kg 108.862 kg Intake: Oral 0 / 0 Other: Date of Last Bowel Movement 10/24/18 Weight On Admission 108.862 kg <Aldair Harvey - 10/25/18 11:08> Vital Signs 10/24/18 14:28 10/24/18 14:31 Temperature 98.7 F Pulse Rate 88 87 Respiratory Rate 20 11 L Blood Pressure 190/88 H 199/84 H Pulse Oximetry 96 98 Intake & Output 10/23/18 10/24/18 10/24/18 18:59 06:59 18:59 Weight 108.862 kg <Marla Spivey - 10/24/18 17:29> Narrative: GENERAL: Pleasant,obese M laying comfortably in bed. SKIN: Warm and dry. HEAD: Atraumatic. Normocephalic. EYES: EOM intact. ENT: No nasal bleeding or discharge. Slightly dry mucus membranes. CARDIOVASCULAR: Regular rate and rhythm. RESPIRATORY: No accessory muscle use. Clear to auscultation. Breath sounds equal bilaterally. Airflow restricted due to body habitus. GASTROINTESTINAL: Abdomen soft, non-tender. Distended. MUSCULOSKELETAL: Pitting edema in the upper extremities. Less severe in the lower extremities, appears of vascular dermatitis noted bilaterally. NEUROLOGICAL: Awake and alert. No obvious cranial nerve deficits. Normal ROM. Slight tremor of right arm. PSYCHIATRIC: Flat affect, speech is slow. <Abid MelchorMarla N - 10/24/18 18:25> Results - Labs Result diagrams: 10/25/18 06:58 10/25/18 06:58 <Aldair Harvey - 10/25/18 11:08> Abnormal lab results 10/24/18 10/24/18 10/24/18 Range/Units 15:01 15:01 15:01 RBC 2.98 L (4.50-5.90) mil/mm3 Hgb 10.2 L (13.0-17.0) gm/dL Hct 30.2 L (39.0-51.0) % MCV 101.4 H (80.0-100.0) fL MCH 34.4 H (27.0-34.0) pg RDW 20.1 H (11.6-17.2) % Plt Count 81 L D (150-450) th/mm3 Caswell % (Auto) 10.9 H (0.0-8.0) % Eos % (Auto) 5.0 H (0.0-4.0) % Lymph # (Auto) (1.0-4.8) th/mm3 Seg Neuts % (Manual) 80 H (16-70) % Lymphocytes % (Manual) 6 L (9-44) % Platelet Estimate Low L (Normal) PT 15.2 H (9.8-11.6) sec APTT 45.4 H (23.4-31.7) sec Potassium 3.3 L (3.5-5.1) meq/L Chloride 108 H (98-107) meq/L Creatinine 1.53 H (0.60-1.30) mg/dL Estimated GFR 53 L (>89) mL/min Random Glucose 129 H (74-106) mg/dL Calcium 8.3 L (8.5-10.1) mg/dL Total Bilirubin 4.6 H (0.2-1.0) mg/dL AST 82 H (15-37) U/L Alkaline Phosphatase 193 H (45-117) U/L B-Natriuretic Peptide (0-100) pg/mL Total Protein (6.4-8.2) g/dL Albumin 1.9 L (3.4-5.0) g/dL 10/24/18 10/25/18 10/25/18 Range/Units 15:01 06:58 06:58 RBC 2.79 L (4.50-5.90) mil/mm3 Hgb 9.6 L (13.0-17.0) gm/dL Hct 28.0 L (39.0-51.0) % MCV 100.3 H (80.0-100.0) fL MCH 34.6 H (27.0-34.0) pg RDW 19.5 H (11.6-17.2) % Plt Count 64 L (150-450) th/mm3 Caswell % (Auto) 12.3 H (0.0-8.0) % Eos % (Auto) 6.8 H (0.0-4.0) % Lymph # (Auto) 0.9 L (1.0-4.8) th/mm3 Seg Neuts % (Manual) (16-70) % Lymphocytes % (Manual) (9-44) % Platelet Estimate Low L (Normal) PT (9.8-11.6) sec APTT (23.4-31.7) sec Potassium 3.2 L (3.5-5.1) meq/L Chloride 109 H (98-107) meq/L Creatinine (0.60-1.30) mg/dL Estimated GFR 66 L (>89) mL/min Random Glucose (74-106) mg/dL Calcium 8.3 L (8.5-10.1) mg/dL Total Bilirubin 4.2 H (0.2-1.0) mg/dL AST 72 H (15-37) U/L Alkaline Phosphatase 154 H (45-117) U/L B-Natriuretic Peptide 244 H (0-100) pg/mL Total Protein 6.0 L D (6.4-8.2) g/dL Albumin 1.7 L (3.4-5.0) g/dL Short CBC 10/24/18 10/25/18 Range/Units 15:01 06:58 WBC 8.3 6.0 (4.0-11.0) th/mm3 Hgb 10.2 L 9.6 L (13.0-17.0) gm/dL Hct 30.2 L 28.0 L (39.0-51.0) % Plt Count 81 L D 64 L (150-450) th/mm3 BMP 10/24/18 10/25/18 15:01 06:58 Sodium 140 144 Potassium 3.3 L 3.2 L Chloride 108 H 109 H Carbon Dioxide 25.2 28.5 BUN 10 11 Creatinine 1.53 H 1.27 Calcium 8.3 L 8.3 L Liver Function 10/24/18 10/25/18 Range/Units 15:01 06:58 Total Bilirubin 4.6 H 4.2 H (0.2-1.0) mg/dL AST 82 H 72 H (15-37) U/L ALT 40 35 (12-78) U/L Alkaline Phosphatase 193 H 154 H (45-117) U/L Albumin 1.9 L 1.7 L (3.4-5.0) g/dL <Aldair Harvey - 10/25/18 11:08> Abnormal lab results 10/24/18 10/24/18 10/24/18 Range/Units 15:01 15:01 15:01 RBC 2.98 L (4.50-5.90) mil/mm3 Hgb 10.2 L (13.0-17.0) gm/dL Hct 30.2 L (39.0-51.0) % MCV 101.4 H (80.0-100.0) fL MCH 34.4 H (27.0-34.0) pg RDW 20.1 H (11.6-17.2) % Plt Count 81 L D (150-450) th/mm3 Caswell % (Auto) 10.9 H (0.0-8.0) % Eos % (Auto) 5.0 H (0.0-4.0) % Seg Neuts % (Manual) 80 H (16-70) % Lymphocytes % (Manual) 6 L (9-44) % Platelet Estimate Low L (Normal) PT 15.2 H (9.8-11.6) sec APTT 45.4 H (23.4-31.7) sec Potassium 3.3 L (3.5-5.1) meq/L Chloride 108 H (98-107) meq/L Creatinine 1.53 H (0.60-1.30) mg/dL Estimated GFR 53 L (>89) mL/min Random Glucose 129 H (74-106) mg/dL Calcium 8.3 L (8.5-10.1) mg/dL Total Bilirubin 4.6 H (0.2-1.0) mg/dL AST 82 H (15-37) U/L Alkaline Phosphatase 193 H (45-117) U/L B-Natriuretic Peptide (0-100) pg/mL Albumin 1.9 L (3.4-5.0) g/dL 10/24/18 Range/Units 15:01 RBC (4.50-5.90) mil/mm3 Hgb (13.0-17.0) gm/dL Hct (39.0-51.0) % MCV (80.0-100.0) fL MCH (27.0-34.0) pg RDW (11.6-17.2) % Plt Count (150-450) th/mm3 Caswell % (Auto) (0.0-8.0) % Eos % (Auto) (0.0-4.0) % Seg Neuts % (Manual) (16-70) % Lymphocytes % (Manual) (9-44) % Platelet Estimate (Normal) PT (9.8-11.6) sec APTT (23.4-31.7) sec Potassium (3.5-5.1) meq/L Chloride (98-107) meq/L Creatinine (0.60-1.30) mg/dL Estimated GFR (>89) mL/min Random Glucose (74-106) mg/dL Calcium (8.5-10.1) mg/dL Total Bilirubin (0.2-1.0) mg/dL AST (15-37) U/L Alkaline Phosphatase (45-117) U/L B-Natriuretic Peptide 244 H (0-100) pg/mL Albumin (3.4-5.0) g/dL Short CBC 10/24/18 Range/Units 15:01 WBC 8.3 (4.0-11.0) th/mm3 Hgb 10.2 L (13.0-17.0) gm/dL Hct 30.2 L (39.0-51.0) % Plt Count 81 L D (150-450) th/mm3 BMP 10/24/18 15:01 Sodium 140 Potassium 3.3 L Chloride 108 H Carbon Dioxide 25.2 BUN 10 Creatinine 1.53 H Calcium 8.3 L Liver Function 10/24/18 Range/Units 15:01 Total Bilirubin 4.6 H (0.2-1.0) mg/dL AST 82 H (15-37) U/L ALT 40 (12-78) U/L Alkaline Phosphatase 193 H (45-117) U/L Albumin 1.9 L (3.4-5.0) g/dL <Marla Spivey - 10/24/18 17:29> - Imaging Impressions Chest X-Ray 10/24/18 14:54 CONCLUSION: 1. The rama appear slightly prominent consistent with possible perihilar infiltrates and/or possible underlying hilar lymphadenopathy. 2. Scattered patchiness is noted within the right upper lobe and left lung base consistent with possible pneumonia. Venous Doppler Study 10/24/18 14:55 CONCLUSION: 1. The study is negative for bilateral lower extremity deep venous thrombosis. Abdomen Ultrasound 10/25/18 00:00 CONCLUSION: 1. Gallbladder wall thickening and cholelithiasis. If there is clinical concern for acute cholecystitis, a hepatobiliary scan may be helpful to confirm cystic duct obstruction. 2. Enlarged fatty liver. 3. Mild splenomegaly. 4. Echogenic kidneys suggesting possible medical renal disease. 5. Bilateral pleural effusions. 6. Minimal ascites. Chest X-Ray 10/25/18 08:00 CONCLUSION: 1. Worsening infiltrates are noted bilaterally consistent with worsening pneumonia or pulmonary edema. Clinical correlation is recommended. 2. Cardiomegaly. <Aldair Harvey - 10/25/18 11:08> Impressions Chest X-Ray 10/24/18 14:54 CONCLUSION: 1. The rama appear slightly prominent consistent with possible perihilar infiltrates and/or possible underlying hilar lymphadenopathy. 2. Scattered patchiness is noted within the right upper lobe and left lung base consistent with possible pneumonia. Venous Doppler Study 10/24/18 14:55 CONCLUSION: 1. The study is negative for bilateral lower extremity deep venous thrombosis. <Marla Spivey N 10/24/18 17:29> Caprini VTE Risk Assessment Caprini VTE Risk Assessment: Moderate/High Risk (score >= 2) <AbiMarla Hogue 10/24/18 17:29> Caprini Risk Assessment Model: Point Value = 1 Point Value = 2 Point Value = 3 Point Value = 5 Age 41-60 Minor surgery BMI > 25 kg/m2 Swollen legs Varicose veins or History of unexplained or recurrent spontaneous Oral contraceptives or hormone replacement Sepsis (< 1 month) Serious lung disease, including pneumonia (< 1 month) Abnormal pulmonary function Acute myocardial infarction Congestive heart failure (< 1 month) History of inflammatory bowel disease Medical patient at bed rest Age 61-74 Arthroscopic surgery Major open surgery (> 45 min) Laparoscopic surgery (> 45 min) Malignancy Confined to bed (> 72 hours) Immobilizing plaster cast Central venous access Age >= 75 History of VTE Family history of VTE Factor V Leiden Prothrombin [id number] Lupus anticoagulant Anticardiolipin antibodies Elevated serum homocysteine Heparin-induced thrombocytopenia Other congenital or acquired thrombophilia Stroke (< 1 month) Elective arthroplasty Hip, pelvis, or leg fracture Acute spinal cord injury (< 1 month) <Aldair Harvey - 10/25/18 11:08> Point Value = 1 Point Value = 2 Point Value = 3 Point Value = 5 Age 41-60 Minor surgery BMI > 25 kg/m2 Swollen legs Varicose veins or History of unexplained or recurrent spontaneous Oral contraceptives or hormone replacement Sepsis (< 1 month) Serious lung disease, including pneumonia (< 1 month) Abnormal pulmonary function Acute myocardial infarction Congestive heart failure (< 1 month) History of inflammatory bowel disease Medical patient at bed rest Age 61-74 Arthroscopic surgery Major open surgery (> 45 min) Laparoscopic surgery (> 45 min) Malignancy Confined to bed (> 72 hours) Immobilizing plaster cast Central venous access Age >= 75 History of VTE Family history of VTE Factor V Leiden Prothrombin [id number] Lupus anticoagulant Anticardiolipin antibodies Elevated serum homocysteine Heparin-induced thrombocytopenia Other congenital or acquired thrombophilia Stroke (< 1 month) Elective arthroplasty Hip, pelvis, or leg fracture Acute spinal cord injury (< 1 month) <AbiMaral Hogue 10/24/18 18:25> Prophylaxis Regimen: Total Risk Factor Score Risk Level Prophylaxis Regimen 0-1 Low Early ambulation 2 Moderate Order ONE of the following: *Sequential Compression Device (SCD) *Heparin 5000 units SQ BID 3-4 Higher Order ONE of the following medications: *Heparin 5000 units SQ TID *Enoxaparin/Lovenox 40 mg SQ daily (WT < 150 kg, CrCl > 30 mL/min) *Enoxaparin/Lovenox 30 mg SQ daily (WT < 150 kg, CrCl > 10-29 mL/min) *Enoxaparin/Lovenox 30 mg SQ BID (WT < 150 kg, CrCl > 30 mL/min) AND/OR *Sequential Compression Device (SCD) 5 or more Highest Order ONE of the following medications: *Heparin 5000 units SQ TID (Preferred with Epidurals) *Enoxaparin/Lovenox 40 mg SQ daily (WT < 150 kg, CrCl > 30 mL/min) *Enoxaparin/Lovenox 30 mg SQ daily (WT < 150 kg, CrCl > 10-29 mL/min) *Enoxaparin/Lovenox 30 mg SQ BID (WT < 150 kg, CrCl > 30 mL/min) AND *Sequential Compression Device (SCD) <Aldair Harvey - 10/25/18 11:08> Total Risk Factor Score Risk Level Prophylaxis Regimen 0-1 Low Early ambulation 2 Moderate Order ONE of the following: *Sequential Compression Device (SCD) *Heparin 5000 units SQ BID 3-4 Higher Order ONE of the following medications: *Heparin 5000 units SQ TID *Enoxaparin/Lovenox 40 mg SQ daily (WT < 150 kg, CrCl > 30 mL/min) *Enoxaparin/Lovenox 30 mg SQ daily (WT < 150 kg, CrCl > 10-29 mL/min) *Enoxaparin/Lovenox 30 mg SQ BID (WT < 150 kg, CrCl > 30 mL/min) AND/OR *Sequential Compression Device (SCD) 5 or more Highest Order ONE of the following medications: *Heparin 5000 units SQ TID (Preferred with Epidurals) *Enoxaparin/Lovenox 40 mg SQ daily (WT < 150 kg, CrCl > 30 mL/min) *Enoxaparin/Lovenox 30 mg SQ daily (WT < 150 kg, CrCl > 10-29 mL/min) *Enoxaparin/Lovenox 30 mg SQ BID (WT < 150 kg, CrCl > 30 mL/min) AND *Sequential Compression Device (SCD) <Abid Marla Roche N - 10/24/18 18:25> Assessment and Plan - Assessment (1) Edema Code(s): R60.9 - Edema, unspecified Status: Acute Plan: Diff: CHF exacerbation v liver disease CXR shows possible pneumonia v pulmonary congestion. However, due to lack of other clinical/laboratory sx significant for pna at this time, will treat for CHF exacerbation. Re-eval in the AM. Lasix 40mg BID in addition to 20 mg daily. Cr is 1.53 today, baseline from previous hospitalizations is about 1.3. Will need to monitor during diuresis, consider nephrology consult if worsening Cardene drip for significantly elevated BP. Clonidine PRN Q6H for BP>180/100 Carvedilol 6.25 mg BID starting tomorrow Tele Echo Abd US Strict I/O's, daily weights Keep head of bed elevated 30 degrees IS CMP tomorrow (2) HTN (hypertension) Code(s): I10 - Essential (primary) hypertension Status: Acute Plan: Takes Lasix 20 mg daily See above (3) CHF (congestive heart failure) Code(s): I50.9 - Heart failure, unspecified Status: Acute Plan: See above (4) Depression Code(s): F32.9 - Major depressive disorder, single episode, unspecified Status : Acute Plan: Con't home fluoxetine (5) Anemia Code(s): D64.9 - Anemia, unspecified Status: Acute Plan: Con't iron supplementation Fluids: none Electrolytes: as needed Nutrition: reg diet DVT prophy: SCDs GI prophy: Protonix <Abid Marla Roche N - 10/24/18 18:15> (1) Hepatitis Code(s): K75.9 - Inflammatory liver disease, unspecified Status: Acute (2) Edema Code(s): R60.9 - Edema, unspecified Status: Acute (3) HTN (hypertension) Code(s): I10 - Essential (primary) hypertension Status: Acute (4) CHF (congestive heart failure) Code(s): I50.9 - Heart failure, unspecified Status: Acute (5) Depression Code(s): F32.9 - Major depressive disorder, single episode, unspecified Status : Acute (6) Anemia Code(s): D64.9 - Anemia, unspecified Status: Acute <Aldair Harvey - 10/25/18 11:08> - Attending Attestation Patient case discussed with resident physicians I have independently examined the patient I have read the above note and agree with the assessment and plan as discussed with me I was involved in all medical decision making for this patient Aldair Harvey MD <Aldair Harvey - 10/25/18 11:08>
[2018-10-24] MEDS ORDERED: Bisacodyl 10 MG Supp RECTAL PRN ×2 (18:06→18:09)
[2018-10-24] MEDS ORDERED: Acetaminophen 325 MG Tablet PO PRN ×2 (18:06→18:09)
[2018-10-24] MEDS ORDERED: niCARdipine Inj 25 MG in Sodium Chlor 0.9% Inj 240 ML IV.CONT PRN (18:11)
[2018-10-24] MEDS: Enoxaparin Inj 40 MG/0.4 ML Syringe SQ SCH (19:51)
[2018-10-24] MEDS ORDERED: Carvedilol 6.25 MG Tablet PO SCH (21:00)
[2018-10-24] MEDS: Carvedilol 6.25 MG Tablet PO SCH (21:43)
[2018-10-24] MEDS: Senna/Docusate Sodium 8.6/50 MG Tablet PO SCH (21:45)
[2018-10-25 07:26] LABS: Baso % (Auto) 0.3 % (0.0-2.0); Eos # (Auto) 0.4 th/mm3 (0.0-0.4); Eos % (Auto) 6.8 % (0.0-4.0); Hemoglobin 9.6 gm/dL (13.0-17.0); Lymph # (Auto) 0.9 th/mm3 (1.0-4.8); Mean Corpuscular HGB Conc 34.5 % (32.0-36.0); Mean Corpuscular Hemoglobin 34.6 pg (27.0-34.0); Mean Corpuscular Volume 100.3 fL (80.0-100.0); Mean Platelet Volume 9.7 fL (7.0-11.0); Mono # (Auto) 0.7 th/mm3 (0.0-0.9); Mono % (Auto) 12.3 % (0.0-8.0); Neut % (Auto) 65.6 % (16.0-70.0); Platelet Count 64 th/mm3 (150-450); Red Blood Count 2.79 mil/mm3 (4.50-5.90); Red Cell Distribution Width 19.5 % (11.6-17.2)
[2018-10-25 07:43] LABS: Alanine Aminotransferase 35 U/L (12-78); Albumin 1.7 g/dL (3.4-5.0); Anion Gap 7 meq/L (5-15); Aspartate Aminotransferase 72 U/L (15-37); Blood Urea Nitrogen 11 mg/dL (7-18); Calcium 8.3 mg/dL (8.5-10.1); Carbon Dioxide 28.5 meq/L (21.0-32.0); Chloride 109 meq/L (98-107); Glomerular Filtration Rate 66 mL/min (>89); Glucose,Random 92 mg/dL (74-106); Potassium 3.2 meq/L (3.5-5.1); Sodium 144 meq/L (136-145)
[2018-10-25 07:45] LABS: Alkaline Phosphatase 154 U/L (45-117)
[2018-10-25] MEDS ORDERED: Furosemide 20 MG Tablet PO SCH (09:00)
[2018-10-25] MEDS ORDERED: FLUoxetine 20 MG Capsule PO SCH (09:00)
--- NOTE | 2018-10-25 09:05 | US ---
EXAM DATE: 10/25/2018 9:00 AM EST AGE/SEX: 78 years / Male INDICATIONS: Abdominal distention. Elevated LFT's. CLINICAL DATA: This is the patient's initial encounter. Patient reports that signs and symptoms have been present for 1 day and indicates a pain score of 5/10. MEDICAL/SURGICAL HISTORY: Congestive heart failure. Hypertension. Anemia. Glaucoma. Tremor. A ppendectomy. Hydrocele repair. [place] [facility] [place]. . MEASUREMENTS: Liver:__ 17.3 cm. Common Bile Duct:___ 5mm. Right Kidney:___9.8 x 4.4 x 5.3 cm. Left Kidney:___9.6 x 4.1 x 4.7 cm. Spleen:___12.5 cm. FINDINGS: Liver: The liver is enlarged and demonstrates fatty infiltration. No focal hepatic mass is noted. No biliary ductal dilatation is noted. Minimal ascites is noted along the liver edge. Portal Vein: Hepatopedal flow seen in portal vein. Common Duct: No intraluminal mass or stone visualized. Gallbladder: There is gallbladder wall thickening but no pericholecystic fluid or sonographic Dia' s sign. Gallstones are noted within the gallbladder lumen. If there is clinical concern for acute cho lecystitis, a hepatobiliary scan may be helpful to confirm cystic duct obstruction. Pancreas: The visualized portions are within normal limits Right Kidney: Increased echogenicity. No mass or hydronephrosis. Left Kidney: Increased echogenicity. No mass or hydronephrosis. Ascites: Minimal ascites. Pleural Effusion: Bilateral Spleen: The spleen is mildly enlarged. Aorta: Non aneurysmal. IVC: Within normal limits Other: None. CONCLUSION: 1. Gallbladder wall thickening and cholelithiasis. If there is clinical concern for acute cholecysti tis, a hepatobiliary scan may be helpful to confirm cystic duct obstruction. 2. Enlarged fatty liver. 3. Mild splenomegaly. 4. Echogenic kidneys suggesting possible medical renal disease. 5. Bilateral pleural effusions. 6. Minimal ascites. Electronically signed by: Ambrocio Lockwood MD Board Certified Radiologist 10/25/2018 9:04 AM EST
[2018-10-25 09:32] LABS: Platelet Morphology Normal (Normal)
--- NOTE | 2018-10-25 09:55 | XR ---
EXAM DATE: 10/25/2018 9:51 AM EST AGE/SEX: 78 years / Male INDICATIONS: . CHF CLINICAL DATA: This is the patient's initial encounter. Patient reports that signs and symptoms have been present for 3 days and indicates a pain score of 0/10. MEDICAL/SURGICAL HISTORY: Congestive heart failure. Hypertension. None. COMPARISON: [facility] [place] [facility] [place] 1[place] SINGLE AP, 10/24/2018. . FINDINGS: Worsening infiltrates are noted bilaterally consistent with worsening pneumonia or pulmonary edema. C linical correlation is recommended. The heart is enlarged. CONCLUSION: 1. Worsening infiltrates are noted bilaterally consistent with worsening pneumonia or pulmonary lucas a. Clinical correlation is recommended. 2. Cardiomegaly. Electronically signed by: Ambrocio Lockwood MD Board Certified Radiologist 10/25/2018 9:53 AM EST
--- NOTE | 2018-10-25 11:07 | P.PNFP ---
Subjective Interval history: Patient examined during medical rounds this morning with the resident team. He states that he is doing well and he has no complaints this morning. The swelling and edema of the upper extremities and thighs that he experienced prior to admission has resolved. He denies shortness of breath or chest pain. He denies difficulty with sleeping last night. He denies fevers or chills. In summary, this is a 78-year-old gentleman who came to the emergency department with progressive edema in his arms and legs. He is a resident of [facility] where he was noted to have worsening edema in the arms and legs requiring daily wraps with an Dilip wrap. He is taking Lasix 20 mg daily while there, however the swelling continued to worsen and he was beginning to have pain with the swelling. He was complaining of shortness of breath as well as difficulty with lying flat and had to be propped up on pillows to sleep. He was brought to the emergency department for further evaluation In the emergency department, he was noted to have elevated liver function testing and bilirubin as well as a mild AK I. Med hx: CHF Hx of GI bleed in September Depression Iron deficiency anemia Depression Surg hx: Knee surgery in 2013 Fam Hx: Mom: unknown Dad:unknown Social: No smoking or alcohol use No illicit or recreational drug use Living at [facility]. Primary contact is son Gerhard. Used to work in the [employer] Results - Labs Result diagrams: 10/25/18 06:58 10/25/18 06:58 Abnormal lab results 10/24/18 10/24/18 10/24/18 Range/Units 15:01 15:01 15:01 RBC 2.98 L (4.50-5.90) mil/mm3 Hgb 10.2 L (13.0-17.0) gm/dL Hct 30.2 L (39.0-51.0) % MCV 101.4 H (80.0-100.0) fL MCH 34.4 H (27.0-34.0) pg RDW 20.1 H (11.6-17.2) % Plt Count 81 L D (150-450) th/mm3 Duchesne % (Auto) 10.9 H (0.0-8.0) % Eos % (Auto) 5.0 H (0.0-4.0) % Lymph # (Auto) (1.0-4.8) th/mm3 Seg Neuts % (Manual) 80 H (16-70) % Lymphocytes % (Manual) 6 L (9-44) % Platelet Estimate Low L (Normal) PT 15.2 H (9.8-11.6) sec APTT 45.4 H (23.4-31.7) sec Potassium 3.3 L (3.5-5.1) meq/L Chloride 108 H (98-107) meq/L Creatinine 1.53 H (0.60-1.30) mg/dL Estimated GFR 53 L (>89) mL/min Random Glucose 129 H (74-106) mg/dL Calcium 8.3 L (8.5-10.1) mg/dL Total Bilirubin 4.6 H (0.2-1.0) mg/dL AST 82 H (15-37) U/L Alkaline Phosphatase 193 H (45-117) U/L B-Natriuretic Peptide (0-100) pg/mL Total Protein (6.4-8.2) g/dL Albumin 1.9 L (3.4-5.0) g/dL 10/24/18 10/25/18 10/25/18 Range/Units 15:01 06:58 06:58 RBC 2.79 L (4.50-5.90) mil/mm3 Hgb 9.6 L (13.0-17.0) gm/dL Hct 28.0 L (39.0-51.0) % MCV 100.3 H (80.0-100.0) fL MCH 34.6 H (27.0-34.0) pg RDW 19.5 H (11.6-17.2) % Plt Count 64 L (150-450) th/mm3 Duchesne % (Auto) 12.3 H (0.0-8.0) % Eos % (Auto) 6.8 H (0.0-4.0) % Lymph # (Auto) 0.9 L (1.0-4.8) th/mm3 Seg Neuts % (Manual) (16-70) % Lymphocytes % (Manual) (9-44) % Platelet Estimate Low L (Normal) PT (9.8-11.6) sec APTT (23.4-31.7) sec Potassium 3.2 L (3.5-5.1) meq/L Chloride 109 H (98-107) meq/L Creatinine (0.60-1.30) mg/dL Estimated GFR 66 L (>89) mL/min Random Glucose (74-106) mg/dL Calcium 8.3 L (8.5-10.1) mg/dL Total Bilirubin 4.2 H (0.2-1.0) mg/dL AST 72 H (15-37) U/L Alkaline Phosphatase 154 H (45-117) U/L B-Natriuretic Peptide 244 H (0-100) pg/mL Total Protein 6.0 L D (6.4-8.2) g/dL Albumin 1.7 L (3.4-5.0) g/dL Short CBC 10/24/18 10/25/18 Range/Units 15:01 06:58 WBC 8.3 6.0 (4.0-11.0) th/mm3 Hgb 10.2 L 9.6 L (13.0-17.0) gm/dL Hct 30.2 L 28.0 L (39.0-51.0) % Plt Count 81 L D 64 L (150-450) th/mm3 BMP 10/24/18 10/25/18 15:01 06:58 Sodium 140 144 Potassium 3.3 L 3.2 L Chloride 108 H 109 H Carbon Dioxide 25.2 28.5 BUN 10 11 Creatinine 1.53 H 1.27 Calcium 8.3 L 8.3 L Liver Function 10/24/18 10/25/18 Range/Units 15:01 06:58 Total Bilirubin 4.6 H 4.2 H (0.2-1.0) mg/dL AST 82 H 72 H (15-37) U/L ALT 40 35 (12-78) U/L Alkaline Phosphatase 193 H 154 H (45-117) U/L Albumin 1.9 L 1.7 L (3.4-5.0) g/dL - Imaging Impressions Chest X-Ray 10/24/18 14:54 CONCLUSION: 1. The rama appear slightly prominent consistent with possible perihilar infiltrates and/or possible underlying hilar lymphadenopathy. 2. Scattered patchiness is noted within the right upper lobe and left lung base consistent with possible pneumonia. Venous Doppler Study 10/24/18 14:55 CONCLUSION: 1. The study is negative for bilateral lower extremity deep venous thrombosis. Abdomen Ultrasound 10/25/18 00:00 CONCLUSION: 1. Gallbladder wall thickening and cholelithiasis. If there is clinical concern for acute cholecystitis, a hepatobiliary scan may be helpful to confirm cystic duct obstruction. 2. Enlarged fatty liver. 3. Mild splenomegaly. 4. Echogenic kidneys suggesting possible medical renal disease. 5. Bilateral pleural effusions. 6. Minimal ascites. Chest X-Ray 10/25/18 08:00 CONCLUSION: 1. Worsening infiltrates are noted bilaterally consistent with worsening pneumonia or pulmonary edema. Clinical correlation is recommended. 2. Cardiomegaly. Physical Exam Vital signs: Vital Signs 10/24/18 14:28 10/24/18 14:31 10/24/18 18:07 Temperature 98.7 F Pulse Rate 88 87 88 Respiratory Rate 20 11 L 14 Blood Pressure 190/88 H 199/84 H 183/87 H Pulse Oximetry 96 98 98 10/24/18 20:10 10/24/18 21:10 10/25/18 01:21 Temperature 97.5 F L Pulse Rate 89 88 70 Respiratory Rate 17 Blood Pressure 169/77 H 149/71 H 121/58 L Pulse Oximetry 98 97 95 10/25/18 03:42 10/25/18 07:40 10/25/18 09:10 Temperature 97.6 F 97.4 F L Pulse Rate 71 68 Respiratory Rate 18 16 Blood Pressure 132/70 129/60 Pulse Oximetry 95 99 97 Intake & Output 10/24/18 10/25/18 10/25/18 18:59 06:59 18:59 Intake Total 0 / 0 Balance 0 / 0 Weight 108.862 kg 108.862 kg Intake: Oral 0 / 0 Other: Date of Last Bowel Movement 10/24/18 Weight On Admission 108.862 kg Narrative: GENERAL: Pleasant,obese M laying comfortably in bed. SKIN: Warm and dry. Bilateral lower extremities with venous stasis changes HEAD: Atraumatic. Normocephalic. EYES: EOM intact. No appreciable icterus or jaundice CARDIOVASCULAR: Regular rate and rhythm. RESPIRATORY: No accessory muscle use. Clear to auscultation. Breath sounds equal bilaterally. GASTROINTESTINAL: Abdomen soft, non-tender, nondistended MUSCULOSKELETAL: No appreciable pitting edema in the upper or lower extremities. Negative Homans sign NEUROLOGICAL: Awake and alert. No obvious cranial nerve deficits. Normal ROM. Slight tremor of right arm. PSYCHIATRIC: Flat affect, speech is slow Assessment and Plan - Assessment (1) Hepatitis Code(s): K75.9 - Inflammatory liver disease, unspecified Status: Acute Plan: Possible cholelithiasis versus biliary sludging versus viral hepatitis versus fatty liver disease of the liver Liver function elevated on admission, mildly improved today. -AST 82 -> 72 -Alkaline phosphate 193 -> 154 -Total protein 6.8 -> 6.0 -Albumin 1.9 -> 1.7 Abdominal ultrasound: Gallbladder wall thickening and cholelithiasis. If there is clinical concern for acute cholecystitis, a hepatobiliary scan may be helpful to confirm cystic duct obstruction. Enlarged fatty liver. Mild splenomegaly. Echogenic kidney suggesting possible medical renal disease. Minimal ascites Hepatitis panel ordered and pending HIDA scan ordered and pending Monitor with daily labs (2) Edema Code(s): R60.9 - Edema, unspecified Status: Acute Plan: Much improved from yesterday per patient with no longer any complaints of pain from the edema -Status post Lasix 40 mg IV x2 doses -I's and O's were not recorded overnight Echocardiogram from 08/2018 reviewed, showing ejection fraction of 60-65% Started on carvedilol 6.25 mg p.o. twice daily -Blood pressures initially elevated on admission but have normalized overnight -Fluid restriction of 1.5 L daily -Low-sodium diet (3) HTN (hypertension) Code(s): I10 - Essential (primary) hypertension Status: Acute Plan: Patient came in and hypertensive urgency -Received clonidine 0.1 mg x1 in the emergency department with normalization of blood pressure Started on carvedilol 6.25 mg p.o. twice daily Continue Lasix 20 mg p.o. daily (4) CHF (congestive heart failure) Code(s): I50.9 - Heart failure, unspecified Status: Acute Plan: History of CHF and presenting with edema -Reviewed echo from 08/2018 with results as above Continue Coreg 6.25 mg p.o. twice daily Continue Lasix 20 mg daily Fluid restriction 1.5 L daily Low-sodium diet Monitor daily weights (5) Depression Code(s): F32.9 - Major depressive disorder, single episode, unspecified Status : Acute Plan: Stable Con't home fluoxetine (6) Anemia Code(s): D64.9 - Anemia, unspecified Status: Acute Plan: Con't iron supplementation
[2018-10-25] MEDS ORDERED: Sincalide Inj 5 MCG Vial ONE (11:41)
--- NOTE | 2018-10-25 11:51 | ECG ---
Date Performed: 10/24/2018 Time Performed: 16:37:45 PTAGE: 78 years EKG: Sinus rhythm NONSPECIFIC T-WAVE ABNORMALITY BORDERLINE ECG PREVIOUS TRACING : 09/14/2018 19.01 Since the previous tracing, no significant change noted DOCTOR: Elia Interiano Interpretating Date/Time 10/25/2018 11:50:22
--- NOTE | 2018-10-25 12:28 | NM ---
EXAM DATE: 10/25/2018 12:23 PM EST AGE/SEX: 78 years / Male INDICATIONS: Abdominal pain. CLINICAL DATA: This is the patient's initial encounter. Patient reports that signs and symptoms have been present for 1 day and indicates a pain score of 6/10. MEDICAL/SURGICAL HISTORY: Congestive heart failure. Hypertension. Appendectomy. COMPARISON: No prior exams available for comparison. DOSE: 4.1 mCi Tc-99m mebrofenin i.v. Medication: 2.1 mcg Cholecystokinin IV No symptomatic response Cholecystokinin was administered by slow infusion over 8 minutes beginning at 60 minutes. minutes. TECHNIQUE: Following the intravenous administration of radiotracer, dynamic sequential images were pe rformed with continuous acquisition. Time-activity curves were generated. FINDINGS: Hepatic Kinetics: There is prompt uptake of radiotracer in the liver. No focal defects are seen. Ther e is normal rate of washout from the hepatic parenchyma. Biliary Clearance: Activity is first seen in the extrahepatic biliary system at 10 minutes. There is normal excretion into the small bowel. Gallbladder: Activity is first seen in the gallbladder at 45 minutes. Post-CCK: After CCK administration, there is poor emptying of the gallbladder with a 10% ejection fra ction. Common bile duct kinetics are normal and there is no evidence of biliary obstruction. No symp tomatic response after cholecystokinin infusion. Biliary-Enteric Reflux: None observed. CONCLUSION: 1. No evidence of biliary tract obstruction. 2. Poor contraction of the gallbladder following CCK with a 10% gallbladder ejection fraction. This can be seen with chronic gallbladder disease. Electronically signed by: Aldair Moser MD Board Certified Radiologist 10/25/2018 12:27 PM EST
[2018-10-25 12:35] LABS: Hepatitis A IgM Antibody Nonreactive (Nonreactive); Hepatitits B Surface Antigen Nonreactive (Nonreactive)
[2018-10-25] MEDS: Senna/Docusate Sodium 8.6/50 MG Tablet PO SCH ×2 (13:39→20:05)
[2018-10-25] MEDS: Ferrous Sulfate 325 MG Tablet PO SCH ×3 (13:39→18:53)
[2018-10-25] MEDS: Carvedilol 6.25 MG Tablet PO SCH ×2 (13:40→20:04)
--- NOTE | 2018-10-25 14:45 | ECHRPT ---
Indication: heart failure CONCLUSIONS Normal left ventricular size. Mild concentric left ventricular hypertrophy. The left ventricular systolic function is low normal with an estimated ejection fraction in the rang e of 50- 55%. The estimated pulmonary arterial pressure is 46 mmHg. BP: / HR: Rhythm: MEASUREMENTS (Male / Female) Normal Values Technical Quality:Very technically difficult study 2D ECHO LV Diastolic Diameter PLAX 3.7 cm 4.2 - 5.9 / 3.9 - 5.3 cm LV Systolic Diameter PLAX 2.9 cm IVS Diastolic Thickness 1.5 cm 0.6 - 1.0 / 0.6 - 0.9 cm LVPW Diastolic Thickness 1.3 cm 0.6 - 1.0 / 0.6 - 0.9 cm LV Relative Wall Thickness 0.7 RV Internal Dim ED PLAX 3.3 cm LVOT Diameter 1.7 cm Aortic Root Diameter 3.4 cm LA Systolic Diameter LX 4.3 cm 3.0 - 4.0 / 2.7 - 3.8 cm M-MODE Aortic Root Diameter MM 3.5 cm LA Systolic Diameter MM 3.2 cm LA Ao Ratio MM 0.9 AV Cusp Separation MM 1.2 cm DOPPLER AV Peak Velocity 174.0 cm/s AV Peak Gradient 12.1 mmHg LVOT Peak Velocity 137.0 cm/s LVOT Peak Gradient 7.5 mmHg AV Area Cont Eq pk 1.8 cm Mitral E Point Velocity 111.0 cm/s Mitral A Point Velocity 124.0 cm/s Mitral E to A Ratio 0.9 LV E' Lateral Velocity 5.5 cm/s Mitral E to LV E' Lateral Ratio 20.3 LV E' Septal Velocity 6.6 cm/s Mitral E to LV E' Septal Ratio 16.7 TR Peak Velocity 301.0 cm/s TR Peak Gradient 36.2 mmHg Right Atrial Pressure 10.0 mmHg Pulmonary Artery Systolic Pressu 46.2 mmHg Right Ventricular Systolic Press 46.2 mmHg FINDINGS LEFT VENTRICLE Normal left ventricular size. Mild concentric left ventricular hypertrophy. The left ventricular systolic function is low normal with an estimated ejection fraction in the rang e of 50- 55%. RIGHT VENTRICLE Normal right ventricular size and systolic function. LEFT ATRIUM The left atrial size is normal. RIGHT ATRIUM The right atrial size is normal. ATRIAL SEPTUM Normal atrial septal thickness without atrial level shunting by limited color doppler interrogation. AORTA The aortic root and proximal ascending aorta are normal in size on limited imaging. MITRAL VALVE Structurally normal mitral valve. No mitral valve stenosis or regurgitation. AORTIC VALVE Trileaflet aortic valve. No aortic valve stenosis or regurgitation. TRICUSPID VALVE The estimated pulmonary arterial pressure is 46 mmHg. PULMONARY VALVE No pulmonary valve regurgitation or stenosis. VESSELS The inferior vena cava is normal in size. PERICARDIUM No pericardial effusion. Adria Salinas MD, FACC, [id number] (Electronically Signed) Final Date:25 October 2018 14:44
[2018-10-25] MEDS ORDERED: Latanoprost 0.005% Opth Drops 2.5 ML Bottle EACH EYE SCH ×2 (18:00)
[2018-10-25] MEDS: Enoxaparin Inj 40 MG/0.4 ML Syringe SQ SCH (18:36)
[2018-10-25 19:36] VITALS: BP 124/60; PULSE 71; RESP 16; TEMP 98.1; O2SAT 98
== END 2018-10-25 23:56 ==
LOC: NEPC 14:21 → NEDA 14:21 → NEDH 21:05 → NEPHCDU 10-25 00:30
PROVIDERS: ADMIT Family Medicine; ATTEND Family Medicine
CPT/HCPCS: 71010; 71020; 71045; 71046; 76700; 78226; 80053; 80074; 82977; 83520; 83735; 83880; 85025; 85610; 85730; 93005; 93306; 93970; 94150; 97162; 99285; A9513; A9537; C1097; G0378; G8987; G8988; J1650; J1940; J2805